=== PATIENT | male | born 1960 | race Caucasian/White ===

== ENCOUNTER 2018-08-18 18:06 | Inpatient (IN) ==
--- NOTE | 2018-08-18 18:17 | Emergency Department Note ---
Disposition Clinical Impression: Agitation Disposition: Admitted As Inpatient Condition: Fair Referrals: NONE,PCP [Primary Care Provider] - Forms: ED Satisfaction Letter Time of Disposition: 21:40 General Adult HPI - General Stated complaint: off meds Time Seen by Provider: 08/18/18 18:09 Nursing Notes Reviewed: Yes Vital Signs Reviewed: Yes - History of Present Illness HPI Narrative: 57yo male presents from home via EMS for evaluation of agitation. Yesterday and today, patient was shouting, knocking over things, and punching the wall. Staff at his home state he is, "off his meds." Staff was unable to provide EMS with an accurate med list with the patient. Patient notes he needs oxygen and has chest pain; he us unable to further quantify his chest pain. ROS: Pos: as above Neg: fever, chills, dyspnea, diaphoresis, nausea, vomiting, diarrhea, constipation - Related Data Home Medications Medication Instructions Recorded Confirmed Atorvastatin [Lipitor] 10 mg PO HS 07/28/16 10/25/16 Cholecalciferol (D-3) [Vitamin D] 2,000 unit PO BID 07/28/16 10/25/16 CloZAPine [Fazaclo] 100 mg PO BID 07/28/16 10/25/16 Glimepiride [Amaryl] 2 mg PO QAM 07/28/16 10/25/16 Insulin Glargine,Hum.rec.anlog 25 unit SQ HS 07/28/16 07/31/16 [Lantus Solostar] Metformin HCl [Glucophage] 1,000 mg PO BID 07/28/16 10/25/16 Sennosides/Docusate Sodium [Senna 2 each PO BID 07/28/16 10/25/16 Plus] SitaGLIPtin [Januvia] 100 mg PO DAILY 07/28/16 10/25/16 clonazePAM [Klonopin] 0.5 mg PO BID 07/28/16 10/25/16 raNITIdine HCl [Zantac] 150 mg PO BID 07/28/16 10/25/16 Travoprost [Travatan Z] 1 drop BOTH EYES HS 07/31/16 10/25/16 Brinzolamide 1% [Azopt] 1 drop BOTH EYES BID 10/25/16 10/25/16 Lisinopril/Hydrochlorothiazide 1 each PO DAILY 10/25/16 10/25/16 [Zestoretic 20-12.5 mg Tablet] RisperiDONE [Risperdal] 0.5 mg PO HS 10/25/16 10/25/16 risperiDONE [Risperdal] 4 mg PO HS 10/25/16 10/25/16 Previous Rx's Medication Instructions Recorded Acetaminophen [Tylenol] 650 mg PO Q6HR PRN #0 tablet 08/03/16 Divalproex (24 HR) [Depakote ER 1,000 mg PO HS tab.er.24h 08/03/16 (24 HR)] Escitalopram [Lexapro] 20 mg PO DAILY tablet 08/03/16 Glucagon, Human Recombinant 1 mg IM ONCE PRN #0 vial 08/03/16 [Glucagen] Insulin DETEMIR [Levemir] 20 unit SQ HS [id number] 08/03/16 Insulin LISPRO [HumaLOG] 0 units SQ TIDAC vial 08/03/16 Allergies Allergy/AdvReac Type Severity Reaction Status Date / Time No Known Allergies Allergy Verified 08/13/18 13:03 All systems ED: reviewed and negative except as stated. Review of Systems: As Per HPI Past Medical History - Past Medical History Medical history: Reports: diabetes, hypertension Surgical history: Reports: cholecystectomy, other Psychiatric history: Reports: bipolar, schizophrenia - Social History Smoking Status: Former smoker Smokeless Tobacco Status: No Alcohol use: Reports: none Drug use: Reports: none Physical Exam Vital Signs Reviewed General: Patient is alert, oriented, and in no acute distress. Head: atraumatic, normocephalic Eye: normal appearance, PERRL, EOMI, no scleral icterus, no conjunctival injection ENT: mucous membranes moist, normal external ear exam Neck: normal inspection, trachea midline, full ROM Chest: normal inspection, symmetric chest rise. Nontender to palpation. Respiratory: Good respiratory effort. Bilateral breath sounds are clear without wheezing, crackles, or rhonchi. Cardiovascular: Regular rate and rhythm. No clicks, rubs, gallops, or murmors. Normal heart sounds. Abdomen: Bowel sounds present normoactive x-4 quadrants. Abdomen is soft, nondistended, and nontender. No guarding or rebound. Musculoskeletal: Spontaneously moving all extremities. Skin: warm, dry, intact. Neuro: Alert and oriented x4. Sensation light touch intact. Psych: Patient's affect is appropriate for situation. Course Course Narrative: Chart check shows patient was discharged in this emergency department yesterday which she complaint of combativeness in the context of his schizophrenia. He was evaluated by [facility] yesterday and cleared to go home. He was reportedly fine emergency department until told he would be going home at which point he became aggressive and threatening and was given 10 mg IM Geodon; the snf injury to accept the patient in the condition. EKG dated 08/18/2018 at 18:17 interpreted as sinus rhythm with rate of 93. ID 151. QTC 392. Normal axis. Nonspecific ST-T changes. Isolated T-wave inversion in lead 3. Compared to previous EKG dated 08/01/2016 showing no acute ischemic changes or comparison. Patient is medically cleared at this time. She has been accepted to [facility]. Vital Signs Temperature 98.5 F 08/18/18 18:27 Pulse Rate 93 08/18/18 18:27 Respiratory Rate 18 08/18/18 18:27 Blood Pressure 153/81 08/18/18 18:27 O2 Sat by Pulse Oximetry 100 08/18/18 18:27 Temperature 98.5 F 08/18/18 18:34 Pulse Rate 92 08/18/18 21:05 Respiratory Rate 14 08/18/18 21:05 Blood Pressure 147/84 08/18/18 21:05 O2 Sat by Pulse Oximetry 100 08/18/18 21:05 Oxygen Delivery Oxygen Delivery Nasal Cannula Medical Decision Making - Lab Data Result diagrams: 08/18/18 18:45 08/18/18 18:45 Lab Results 08/18/18 08/18/18 08/18/18 Range/Units 18:38 18:38 18:45 WBC (4.3-11.1) K/mcL RBC (4.19-5.50) M/mcL Hgb (12.9-16.9) g/dL Hct (37.5-50.1) % MCV (83.0-100.0) fL MCH (28.0-33.3) pg MCHC (31.6-35.5) g/dL RDW (11.5-14.5) % Plt Count (140-400) K/mcL MPV (9.4-12.4) fL Immature Gran % (0-4) % Seg Neutrophils % % Lymphocytes % % Monocytes % % Eosinophils % % Basophils % % Neutrophils # (1.6-8.9) K/mcL Lymphocytes # (0.6-4.6) K/mcL Monocytes # (0.0-1.3) K/mcL Eosinophils # (0.0-0.6) K/mcL Basophils # (0.0-0.2) K/mcL Sodium (136-145) mEq/L Potassium (3.5-5.1) mEq/L Chloride (98-107) mEq/L Carbon Dioxide (23-29) mEq/L BUN (6-20) mg/dL Creatinine (0.70-1.30) mg/dL Est GFR ( Amer) (> 60) Est GFR (Non-Af Amer) (> 60) BUN/Creatinine Ratio (6-26) Glucose (70-105) mg/dL Calculated Osmolality (280-300) Calcium (8.6-10.3) mg/dL Troponin I (< 0.04) ng/mL Urine Color Yellow (Yellow) Urine Clarity Clear (Clear) Urine pH 6.0 (5.0-8.0) pH Units Ur Specific [place] 1.022 (1.010-1.025) Urine Protein 30 H (Neg-Trace) mg/dL Urine Glucose (UA) 500 H (Normal) mg/dL Urine Ketones 15 H (Negative) mg/dL Urine Blood Trace H (Negative) Urine Nitrite Negative (Negative) Urine Bilirubin Negative (Negative) Urine Urobilinogen Normal (Normal) mg/dL Ur Leukocyte Esterase Negative (Negative) Urine Microscopic RBC 5-15 H (0-3) per hpf Urine Microscopic WBC 0-3 (0-3) per hpf Ur Squamous Epith Cells Few (None-Few) per lpf Urine Bacteria None Seen (None-Few) per hpf Hyaline Casts None Seen (None-Few) per lpf Salicylates < 2.5 L (15.0-30.0) mg/dL Urine Opiates Screen Negative (Ozpdwq=639) ng/mL Acetaminophen < 10 L (10-20) mcg/mL Ur Barbiturates Screen Negative (Arphtc=903) ng/mL Valproic Acid 93 (50-100) mcg/mL Ur Phencyclidine Scrn Negative (Cutoff=25) ng/mL Ur Amphetamines Screen Negative (Mqfclc=2396) ng/mL U Benzodiazepines Scrn Negative (Hxbjtf=726) ng/mL Urine Cocaine Screen Negative (Cutoff= 300) ng/mL U Marijuana (THC) Screen Negative (Cutoff = 50) ng/mL Ur Drug Screen Interp See Below Ethyl Alcohol < 10 (Less than 10) mg/dL 08/18/18 08/18/18 Range/Units 18:45 18:45 WBC 9.9 (4.3-11.1) K/mcL RBC 3.86 L (4.19-5.50) M/mcL Hgb 12.1 L (12.9-16.9) g/dL Hct 35.9 L (37.5-50.1) % MCV 93.0 (83.0-100.0) fL MCH 31.3 (28.0-33.3) pg MCHC 33.7 (31.6-35.5) g/dL RDW 13.0 (11.5-14.5) % Plt Count 127 L (140-400) K/mcL MPV 10.3 (9.4-12.4) fL Immature Gran % 0.9 (0-4) % Seg Neutrophils % 74.7 % Lymphocytes % 14.2 % Monocytes % 9.5 % Eosinophils % 0.4 % Basophils % 0.3 % Neutrophils # 7.4 (1.6-8.9) K/mcL Lymphocytes # 1.4 (0.6-4.6) K/mcL Monocytes # 0.9 (0.0-1.3) K/mcL Eosinophils # 0.0 (0.0-0.6) K/mcL Basophils # 0.0 (0.0-0.2) K/mcL Sodium 130 L (136-145) mEq/L Potassium 4.5 (3.5-5.1) mEq/L Chloride 96 L (98-107) mEq/L Carbon Dioxide 25 (23-29) mEq/L BUN 21 H (6-20) mg/dL Creatinine 1.05 (0.70-1.30) mg/dL Est GFR ( Amer) > 60 (> 60) Est GFR (Non-Af Amer) > 60 (> 60) BUN/Creatinine Ratio 20 (6-26) Glucose 263 H (70-105) mg/dL Calculated Osmolality 282 (280-300) Calcium 9.3 (8.6-10.3) mg/dL Troponin I < 0.03 (< 0.04) ng/mL Urine Color (Yellow) Urine Clarity (Clear) Urine pH (5.0-8.0) pH Units Ur Specific [place] (1.010-1.025) Urine Protein (Neg-Trace) mg/dL Urine Glucose (UA) (Normal) mg/dL Urine Ketones (Negative) mg/dL Urine Blood (Negative) Urine Nitrite (Negative) Urine Bilirubin (Negative) Urine Urobilinogen (Normal) mg/dL Ur Leukocyte Esterase (Negative) Urine Microscopic RBC (0-3) per hpf Urine Microscopic WBC (0-3) per hpf Ur Squamous Epith Cells (None-Few) per lpf Urine Bacteria (None-Few) per hpf Hyaline Casts (None-Few) per lpf Salicylates (15.0-30.0) mg/dL Urine Opiates Screen (Nahiul=288) ng/mL Acetaminophen (10-20) mcg/mL Ur Barbiturates Screen (Asdooz=099) ng/mL Valproic Acid (50-100) mcg/mL Ur Phencyclidine Scrn (Cutoff=25) ng/mL Ur Amphetamines Screen (Vkyzhz=5029) ng/mL U Benzodiazepines Scrn (Wltzmx=434) ng/mL Urine Cocaine Screen (Cutoff= 300) ng/mL U Marijuana (THC) Screen (Cutoff = 50) ng/mL Ur Drug Screen Interp Ethyl Alcohol (Less than 10) mg/dL Attestation Statement - Attestation Attestation: I, Anthony Moeller DO, examined this patient [id number] and my medical decision-making was reviewed with Dr. Severino Vick, Resident Physician. I agree with the documented findings, disposition and treatment plan as described except to the extent set forth below. Please see my progress notes for details.
[2018-08-18 19:04] LABS: Basophils % 0.3 %; Eosinophils % 0.4 %; Hematocrit 35.9 % (37.5-50.1); Hemoglobin 12.1 g/dL (12.9-16.9); Immature Granulocytes % 0.9 % (0-4); Lymphocytes # 1.4 K/mcL (0.6-4.6); Lymphocytes % 14.2 %; Mean Corpuscular HGB Conc 33.7 g/dL (31.6-35.5); Mean Corpuscular Hemoglobin 31.3 pg (28.0-33.3); Mean Platelet Volume 10.3 fL (9.4-12.4); Monocytes # 0.9 K/mcL (0.0-1.3); Monocytes % 9.5 %; Neutrophils # 7.4 K/mcL (1.6-8.9); Platelet Count 127 K/mcL (140-400); Red Blood Count 3.86 M/mcL (4.19-5.50); Segmented Neutrophils % 74.7 %
[2018-08-18 19:08] LABS: Bilirubin,Urine Negative (Negative); Blood,Urine Trace (Negative); Clarity,Urine Clear (Clear); Color,Urine Yellow (Yellow); Glucose,Urine (UA) 500 mg/dL (Normal); Ketones,Urine 15 mg/dL (Negative); Leukocyte Esterase,Urine Negative (Negative); Nitrite,Urine Negative (Negative); Protein,Urine 30 mg/dL (Neg-Trace); Specific Gravity,Urine 1.022 (1.010-1.025); Urobilinogen,Urine Normal (Normal)
[2018-08-18 19:10] LABS: Bacteria,Urine None Seen per hpf (None-Few); Hyaline Casts,Urine None Seen per lpf (None-Few); Squamous Epithelial Cell,Urine Few per lpf (None-Few); WBC,Urine 0-3 per hpf (0-3)
[2018-08-18 19:15] LABS: Amphetamine Screen,Urine Negative ng/mL (Cutoff=1000); Barbiturate Screen,Urine Negative ng/mL (Cutoff=200); Benzodiazepines Screen,Urine Negative ng/mL (Cutoff=200); Cannabinoid Screen,Urine Negative ng/mL (Cutoff = 50); Cocaine Screen,Urine Negative ng/mL (Cutoff= 300); Opiate Screen,Urine Negative ng/mL (Cutoff=300); Phencyclidine Screen,Urine Negative ng/mL (Cutoff=25)
[2018-08-18 19:23] LABS: Acetaminophen < 10 mcg/mL (10-20); Ethanol < 10 mg/dL (Less than 10); Salicylate < 2.5 mg/dL (15.0-30.0); Valproate 93 mcg/mL (50-100)
[2018-08-18 19:25] LABS: BUN/Creatinine Ratio 20 (6-26); Blood Urea Nitrogen 21 mg/dL (6-20); Calcium 9.3 mg/dL (8.6-10.3); Carbon Dioxide 25 mEq/L (23-29); Chloride 96 mEq/L (98-107); Glucose 263 mg/dL (70-105); Osmolality,Calculated 282 (280-300); Potassium 4.5 mEq/L (3.5-5.1); Sodium 130 mEq/L (136-145); Troponin I < 0.03 ng/mL (< 0.04); eGFR For Non-African Americans > 60 (> 60)
--- NOTE | 2018-08-18 20:18 | Emergency Department Note ---
Disposition Clinical Impression: Agitation Disposition: Admitted As Inpatient Condition: Fair Forms: ED Satisfaction Letter Time of Disposition: 21:13 General Adult HPI - General Chief complaint: ED Chest Pain Stated complaint: off meds Time Seen by Provider: 08/18/18 18:09 Source: patient Limitations: no limitations - History of Present Illness Pain Scale: 8 - Related Data Home Medications Medication Instructions Recorded Confirmed Atorvastatin [Lipitor] 10 mg PO HS 07/28/16 10/25/16 Cholecalciferol (D-3) [Vitamin D] 2,000 unit PO BID 07/28/16 10/25/16 CloZAPine [Fazaclo] 100 mg PO BID 07/28/16 10/25/16 Glimepiride [Amaryl] 2 mg PO QAM 07/28/16 10/25/16 Insulin Glargine,Hum.rec.anlog 25 unit SQ HS 07/28/16 07/31/16 [Lantus Solostar] Metformin HCl [Glucophage] 1,000 mg PO BID 07/28/16 10/25/16 Sennosides/Docusate Sodium [Senna 2 each PO BID 07/28/16 10/25/16 Plus] SitaGLIPtin [Januvia] 100 mg PO DAILY 07/28/16 10/25/16 clonazePAM [Klonopin] 0.5 mg PO BID 07/28/16 10/25/16 raNITIdine HCl [Zantac] 150 mg PO BID 07/28/16 10/25/16 Travoprost [Travatan Z] 1 drop BOTH EYES HS 07/31/16 10/25/16 Brinzolamide 1% [Azopt] 1 drop BOTH EYES BID 10/25/16 10/25/16 Lisinopril/Hydrochlorothiazide 1 each PO DAILY 10/25/16 10/25/16 [Zestoretic 20-12.5 mg Tablet] RisperiDONE [Risperdal] 0.5 mg PO HS 10/25/16 10/25/16 risperiDONE [Risperdal] 4 mg PO HS 10/25/16 10/25/16 Previous Rx's Medication Instructions Recorded Acetaminophen [Tylenol] 650 mg PO Q6HR PRN #0 tablet 08/03/16 Divalproex (24 HR) [Depakote ER 1,000 mg PO HS tab.er.24h 08/03/16 (24 HR)] Escitalopram [Lexapro] 20 mg PO DAILY tablet 08/03/16 Glucagon, Human Recombinant 1 mg IM ONCE PRN #0 vial 08/03/16 [Glucagen] Insulin DETEMIR [Levemir] 20 unit SQ HS [id number] 08/03/16 Insulin LISPRO [HumaLOG] 0 units SQ TIDAC vial 08/03/16 Allergies Allergy/AdvReac Type Severity Reaction Status Date / Time No Known Allergies Allergy Verified 08/13/18 13:03 Past Medical History - Past Medical History Medical history: Reports: diabetes, hypertension Surgical history: Reports: cholecystectomy, other Psychiatric history: Reports: bipolar, schizophrenia - Social History Smoking Status: Former smoker Smokeless Tobacco Status: No Alcohol use: Reports: none Drug use: Reports: none Physical Exam - General Limitations: no limitations General appearance: alert, appears intoxicated Course Vital Signs Temperature 98.5 F 08/18/18 18:27 Pulse Rate 93 08/18/18 18:27 Respiratory Rate 18 08/18/18 18:27 Blood Pressure 153/81 08/18/18 18:27 O2 Sat by Pulse Oximetry 100 08/18/18 18:27 Temperature 98.5 F 08/18/18 18:34 Pulse Rate 92 08/18/18 21:05 Respiratory Rate 14 08/18/18 21:05 Blood Pressure 147/84 08/18/18 21:05 O2 Sat by Pulse Oximetry 100 08/18/18 21:05 Oxygen Delivery Oxygen Delivery Nasal Cannula Medical Decision Making - Lab Data Result diagrams: 08/18/18 18:45 08/18/18 18:45 Lab Results 08/18/18 08/18/18 08/18/18 Range/Units 18:38 18:38 18:45 WBC (4.3-11.1) K/mcL RBC (4.19-5.50) M/mcL Hgb (12.9-16.9) g/dL Hct (37.5-50.1) % MCV (83.0-100.0) fL MCH (28.0-33.3) pg MCHC (31.6-35.5) g/dL RDW (11.5-14.5) % Plt Count (140-400) K/mcL MPV (9.4-12.4) fL Immature Gran % (0-4) % Seg Neutrophils % % Lymphocytes % % Monocytes % % Eosinophils % % Basophils % % Neutrophils # (1.6-8.9) K/mcL Lymphocytes # (0.6-4.6) K/mcL Monocytes # (0.0-1.3) K/mcL Eosinophils # (0.0-0.6) K/mcL Basophils # (0.0-0.2) K/mcL Sodium (136-145) mEq/L Potassium (3.5-5.1) mEq/L Chloride (98-107) mEq/L Carbon Dioxide (23-29) mEq/L BUN (6-20) mg/dL Creatinine (0.70-1.30) mg/dL Est GFR ( Amer) (> 60) Est GFR (Non-Af Amer) (> 60) BUN/Creatinine Ratio (6-26) Glucose (70-105) mg/dL Calculated Osmolality (280-300) Calcium (8.6-10.3) mg/dL Troponin I (< 0.04) ng/mL Urine Color Yellow (Yellow) Urine Clarity Clear (Clear) Urine pH 6.0 (5.0-8.0) pH Units Ur Specific [place] 1.022 (1.010-1.025) Urine Protein 30 H (Neg-Trace) mg/dL Urine Glucose (UA) 500 H (Normal) mg/dL Urine Ketones 15 H (Negative) mg/dL Urine Blood Trace H (Negative) Urine Nitrite Negative (Negative) Urine Bilirubin Negative (Negative) Urine Urobilinogen Normal (Normal) mg/dL Ur Leukocyte Esterase Negative (Negative) Urine Microscopic RBC 5-15 H (0-3) per hpf Urine Microscopic WBC 0-3 (0-3) per hpf Ur Squamous Epith Cells Few (None-Few) per lpf Urine Bacteria None Seen (None-Few) per hpf Hyaline Casts None Seen (None-Few) per lpf Salicylates < 2.5 L (15.0-30.0) mg/dL Urine Opiates Screen Negative (Tqpoee=225) ng/mL Acetaminophen < 10 L (10-20) mcg/mL Ur Barbiturates Screen Negative (Ewynfg=842) ng/mL Valproic Acid 93 (50-100) mcg/mL Ur Phencyclidine Scrn Negative (Cutoff=25) ng/mL Ur Amphetamines Screen Negative (Qhacfo=0464) ng/mL U Benzodiazepines Scrn Negative (Pogiwv=209) ng/mL Urine Cocaine Screen Negative (Cutoff= 300) ng/mL U Marijuana (THC) Screen Negative (Cutoff = 50) ng/mL Ur Drug Screen Interp See Below Ethyl Alcohol < 10 (Less than 10) mg/dL 08/18/18 08/18/18 Range/Units 18:45 18:45 WBC 9.9 (4.3-11.1) K/mcL RBC 3.86 L (4.19-5.50) M/mcL Hgb 12.1 L (12.9-16.9) g/dL Hct 35.9 L (37.5-50.1) % MCV 93.0 (83.0-100.0) fL MCH 31.3 (28.0-33.3) pg MCHC 33.7 (31.6-35.5) g/dL RDW 13.0 (11.5-14.5) % Plt Count 127 L (140-400) K/mcL MPV 10.3 (9.4-12.4) fL Immature Gran % 0.9 (0-4) % Seg Neutrophils % 74.7 % Lymphocytes % 14.2 % Monocytes % 9.5 % Eosinophils % 0.4 % Basophils % 0.3 % Neutrophils # 7.4 (1.6-8.9) K/mcL Lymphocytes # 1.4 (0.6-4.6) K/mcL Monocytes # 0.9 (0.0-1.3) K/mcL Eosinophils # 0.0 (0.0-0.6) K/mcL Basophils # 0.0 (0.0-0.2) K/mcL Sodium 130 L (136-145) mEq/L Potassium 4.5 (3.5-5.1) mEq/L Chloride 96 L (98-107) mEq/L Carbon Dioxide 25 (23-29) mEq/L BUN 21 H (6-20) mg/dL Creatinine 1.05 (0.70-1.30) mg/dL Est GFR ( Amer) > 60 (> 60) Est GFR (Non-Af Amer) > 60 (> 60) BUN/Creatinine Ratio 20 (6-26) Glucose 263 H (70-105) mg/dL Calculated Osmolality 282 (280-300) Calcium 9.3 (8.6-10.3) mg/dL Troponin I < 0.03 (< 0.04) ng/mL Urine Color (Yellow) Urine Clarity (Clear) Urine pH (5.0-8.0) pH Units Ur Specific [place] (1.010-1.025) Urine Protein (Neg-Trace) mg/dL Urine Glucose (UA) (Normal) mg/dL Urine Ketones (Negative) mg/dL Urine Blood (Negative) Urine Nitrite (Negative) Urine Bilirubin (Negative) Urine Urobilinogen (Normal) mg/dL Ur Leukocyte Esterase (Negative) Urine Microscopic RBC (0-3) per hpf Urine Microscopic WBC (0-3) per hpf Ur Squamous Epith Cells (None-Few) per lpf Urine Bacteria (None-Few) per hpf Hyaline Casts (None-Few) per lpf Salicylates (15.0-30.0) mg/dL Urine Opiates Screen (Allhdi=399) ng/mL Acetaminophen (10-20) mcg/mL Ur Barbiturates Screen (Qrjhdc=212) ng/mL Valproic Acid (50-100) mcg/mL Ur Phencyclidine Scrn (Cutoff=25) ng/mL Ur Amphetamines Screen (Qtlqwh=7220) ng/mL U Benzodiazepines Scrn (Xcajui=336) ng/mL Urine Cocaine Screen (Cutoff= 300) ng/mL U Marijuana (THC) Screen (Cutoff = 50) ng/mL Ur Drug Screen Interp Ethyl Alcohol (Less than 10) mg/dL Attestation Statement - Attestation Attestation: I, Anthony Moeller DO, examined this patient [id number] and my medical decision-making was reviewed with Dr. Severino Vick, Resident Physician. I agree with the documented findings, disposition and treatment plan as described except to the extent set forth below. Please see my progress notes for details. 57-year-old male presents emergency room for evaluation of noncompliance with his medication agitation his shelter. Patient was seen here twice in the last week for similar issues. He is evaluated by the psychiatric team discharged home. Patient has not been taking his medications that facility and they are concerned because he was arguing staff members.EMS transport vision without any complication. Vital signs are stable transport. Patient is in no distress. Is describing chest discomfort. Patient typically describes chest discomfort. Otherwise denies shortness of breath headache vision changes nausea vomiting diarrhea. Denies any fevers or chills. Denies any other ingestions. Denies any suicidal ideation or homicidal ideation. Patient is otherwise currently stable. Lungs are clear heart is regular abdomen is soft. Medical evaluation including EKG chest x-ray CBC chemistry troponin screening labs including urine drug screen Tylenol level and aspirin level will be collected along with ethanol. Patient will be evaluated by the psychiatric team secondary to the outburst agitation and disposition will be determined. Patient otherwise clinical stable. See detailed documentation the physical exam , medical intervention, medical decision-making and disposition in the resident physician's note. No care provider the patient's treatment course at this time. 1999 1a contacted. they evaluated. 2100 Patient was accepted by the psychiatric team. Patient will be admitted at this time for continuation of care.
[2018-08-18] MEDS ORDERED: Haloperidol Lactate 5 MG/ML VIAL IM PRN (22:19)
[2018-08-18] MEDS ORDERED: Mag Hydrox/Al Hydrox/Simeth 30 ML UDC PO PRN (22:19)
[2018-08-18] MEDS ORDERED: *HR* LORazepam 1 MG TABLET PO PRN (22:19)
[2018-08-18] MEDS ORDERED: *HR* LORazepam 2 MG/ML VIAL IM PRN (22:19)
--- NOTE | 2018-08-19 11:08 | Psychiatry History & Physical ---
Date of Encounter: 08/19/18 Time of Encounter: 10:24 History of Present Illness Patient Stated Chief Complaint: i do not know Medicare Admission Attestation: For traditional Medicare patients the provided hospital inpatient services are reasonable and necessary and in the case of services not specified as inpatient -only under 42 CFR 419.22 (n), that they are appropriately provided as inpatient services in accordance 42 CFR 412.3. For Critical Access Hospital the patient may reasonably be expected to be discharged or transferred to a hospital within 96 hours after admission to the Critical Access Hospital. Admitted From: Emergency Dept Plans for Post Hospital Care: Transfer Other History of Present Illness: Mr. Hough is a 57 year old male was evaluated today , h/o schizophrenia , had been to ED 3 times last month and this time skilled nursing sent him for agitation and refusing to take medication. He at present has poor eye contact , poor historian and talking to self and internally preoccupied. he agreed he was upset , loud and angry , he is answering only I don"t know , unable to get much from patient at present, unknown for how ling he has refused medication. He was on clozaril but now on risperdal, he has low platelet count, low hg/hct and will review his medication . [place] side effects except hand shaking , he has tremors , medically he has diabetes, overweight , HTN , HLP ,denies street drugs . A/p Schizophrenia acute exacerbation secondary to non compliance. WIll adjust medications, get labs, and once stable will discharge to skilled nursing. Past Med Surg Social Fam HX - Past Medical History Medical history: diabetes, hyperlipidemia, hypertension - Past Surgical History Surgical History: cholecystectomy, other - Social History Smoking Status: Former smoker Smokeless Tobacco Status: No Alcohol use: none Drug use: none Medications & Allergies Aspirin [Lo-Dose Aspirin EC] 81 mg PO DAILY 08/18/18 [History] Atorvastatin [Lipitor] 40 mg PO HS 08/18/18 [History] Divalproex Sodium [Depakote] 500 mg PO TID 08/18/18 [History] Escitalopram [Lexapro] 20 mg PO DAILY 08/18/18 [History] Glimepiride [Amaryl] 2 mg PO DAILY 08/18/18 [History] Insulin Glargine [Lantus] 25 unit DAILY 08/18/18 [History] Lisinopril [Zestril] 20 mg PO DAILY 08/18/18 [History] Metformin HCl [Glucophage] 1,000 mg PO BID 08/18/18 [History] Metoprolol Succinate [Toprol Xl] 25 mg PO DAILY 08/18/18 [History] Quetiapine Fumarate [Quetiapine Fumarate ER] 50 mg PO HS 08/18/18 [History] Ranitidine HCl [Acid Sap Ppm Consultant] 150 mg PO BID 08/18/18 [History] risperiDONE [RisperDAL] 3 mg PO DAILY 08/18/18 [History] 3 Allergy/AdvReac Type Severity Reaction Status Date / Time No Known Allergies Allergy Verified 08/13/18 13:03 Review of Systems Constitutional: Denies: fever, chills, weakness, weight change Eyes: Denies: eye pain, vision change Ears, Nose, Throat: Denies: ear pain, throat pain, dental pain, hearing loss, congestion Cardiovascular: Denies: chest pain, palpitations, dyspnea on exertion Respiratory: Denies: cough, dyspnea, wheezes Gastrointestinal: Denies: abdominal pain, nausea, vomiting, diarrhea, constipation Genitourinary male: Denies: urgency, dysuria, frequency, genital lesions Musculoskeletal: Denies: joint swelling, joint pain Integumentary: Denies: rash, lesions, pruritus Neurological: Denies: headache, weakness, numbness, memory loss Psychiatric: Reports: abnormal sleep pattern, auditory hallucinations, difficulty concentrating, irritability Endocrine: Denies: fatigue, heat or cold intolerance Hematologic/Lymphatic: Denies: easy bruising, lymphadenopathy Allergic/Immunologic: Denies: urticaria, itchy eyes Exam - HEENT Head exam IM: Present: atraumatic Eye exam IM: Present: EOMI, normal appearance, PERRL ENT exam IM: Present: normal exam - Neurological Neurological exam: Present: CN II-XII intact - Respiratory Respiratory exam IM: Present: accessory muscle use - GI/Abdominal GI/Abdominal exam IM: Present: normal bowel sounds, soft. Absent: tenderness - Extremities Extremities exam IM: Present: full ROM - Skin Skin exam IM: Present: dry, warm - Constitutional Vitals: Temp Pulse Resp BP Pulse Ox 97.2 F L 98 18 151/84 100 08/19/18 09:00 08/19/18 09:00 08/19/18 09:00 08/19/18 09:00 08/18/18 21:05 General appearance: obese - Musculoskeletal Gait: slow Station: other Strength & Tone: normal for patient - Psychiatric Patient Orientation: Yes Person, Yes Time, Yes Place Level of alertness: Alert Behavior: guarded Psychomotor activity: Slowed Eye Contact: No Eye Contact Mood Description: Irritable Affect description: congruent with mood Speech Volume: Soft/Quiet Speech pattern: slowed Language & Vocabulary: consistent with education Thought Process: Thought Blocking Thought Content: Yes Preoccupation, Yes Paranoid delusion Perceptual Disturbances: Yes Reacting to internal stimuli Attention Span Ability: Unable to Sustain Attention Patient Reliability: Not Reliable Historian Judgment: Poor Insight: Minimal Results - Labs Labs: Laboratory Last Values WBC 9.9 K/mcL (4.3-11.1) 08/18/18 18:45 RBC 3.86 M/mcL (4.19-5.50) L 08/18/18 18:45 Hgb 12.1 g/dL (12.9-16.9) L 08/18/18 18:45 Hct 35.9 % (37.5-50.1) L 08/18/18 18:45 MCV 93.0 fL (83.0-100.0) 08/18/18 18:45 MCH 31.3 pg (28.0-33.3) 08/18/18 18:45 MCHC 33.7 g/dL (31.6-35.5) 08/18/18 18:45 RDW 13.0 % (11.5-14.5) 08/18/18 18:45 Plt Count 127 K/mcL (140-400) L 08/18/18 18:45 MPV 10.3 fL (9.4-12.4) 08/18/18 18:45 Immature Gran % 0.9 % (0-4) 08/18/18 18:45 Seg Neutrophils % 74.7 % 08/18/18 18:45 Lymphocytes % 14.2 % 08/18/18 18:45 Monocytes % 9.5 % 08/18/18 18:45 Eosinophils % 0.4 % 08/18/18 18:45 Basophils % 0.3 % 08/18/18 18:45 Neutrophils # 7.4 K/mcL (1.6-8.9) 08/18/18 18:45 Lymphocytes # 1.4 K/mcL (0.6-4.6) 08/18/18 18:45 Monocytes # 0.9 K/mcL (0.0-1.3) 08/18/18 18:45 Eosinophils # 0.0 K/mcL (0.0-0.6) 08/18/18 18:45 Basophils # 0.0 K/mcL (0.0-0.2) 08/18/18 18:45 Sodium 130 mEq/L (136-145) L 08/18/18 18:45 Potassium 4.5 mEq/L (3.5-5.1) 08/18/18 18:45 Chloride 96 mEq/L (98-107) L 08/18/18 18:45 Carbon Dioxide 25 mEq/L (23-29) 08/18/18 18:45 BUN 21 mg/dL (6-20) H 08/18/18 18:45 Creatinine 1.05 mg/dL (0.70-1.30) 08/18/18 18:45 Est GFR ( Amer) > 60 (> 60) 08/18/18 18:45 Est GFR (Non-Af Amer) > 60 (> 60) 08/18/18 18:45 BUN/Creatinine Ratio 20 (6-26) 08/18/18 18:45 Glucose 263 mg/dL (70-105) H 08/18/18 18:45 Calculated Osmolality 282 (280-300) 08/18/18 18:45 Calcium 9.3 mg/dL (8.6-10.3) 08/18/18 18:45 Troponin I < 0.03 ng/mL (< 0.04) 08/18/18 18:45 Urine Color Yellow (Yellow) 08/18/18 18:38 Urine Clarity Clear (Clear) 08/18/18 18:38 Urine pH 6.0 pH Units (5.0-8.0) 08/18/18 18:38 Ur Specific [place] 1.022 (1.010-1.025) 08/18/18 18:38 Urine Protein 30 mg/dL (Neg-Trace) H 08/18/18 18:38 Urine Glucose (UA) 500 mg/dL (Normal) H 08/18/18 18:38 Urine Ketones 15 mg/dL (Negative) H 08/18/18 18:38 Urine Blood Trace (Negative) H 08/18/18 18:38 Urine Nitrite Negative (Negative) 08/18/18 18:38 Urine Bilirubin Negative (Negative) 08/18/18 18:38 Urine Urobilinogen Normal mg/dL (Normal) 08/18/18 18:38 Ur Leukocyte Esterase Negative (Negative) 08/18/18 18:38 Urine Microscopic RBC 5-15 per hpf (0-3) H 08/18/18 18:38 Urine Microscopic WBC 0-3 per hpf (0-3) 08/18/18 18:38 Ur Squamous Epith Cells Few per lpf (None-Few) 08/18/18 18:38 Urine Bacteria None Seen per hpf (None-Few) 08/18/18 18:38 Hyaline Casts None Seen per lpf (None-Few) 08/18/18 18:38 Salicylates < 2.5 mg/dL (15.0-30.0) L 08/18/18 18:45 Urine Opiates Screen Negative ng/mL (Puudoj=270) 08/18/18 18:38 Acetaminophen < 10 mcg/mL (10-20) L 08/18/18 18:45 Ur Barbiturates Screen Negative ng/mL (Lltfhk=892) 08/18/18 18:38 Valproic Acid 93 mcg/mL (50-100) 08/18/18 18:45 Ur Phencyclidine Scrn Negative ng/mL (Cutoff=25) 08/18/18 18:38 Ur Amphetamines Screen Negative ng/mL (Pzmxkp=9466) 08/18/18 18:38 U Benzodiazepines Scrn Negative ng/mL (Tvrzwc=039) 08/18/18 18:38 Urine Cocaine Screen Negative ng/mL (Cutoff= 300) 18 18:38 U Marijuana (THC) Screen Negative ng/mL (Cutoff = 50) 08/18/18 18:38 Ur Drug Screen Interp See Below 08/18/18 18:38 Ethyl Alcohol < 10 mg/dL (Less than 10) 08/18/18 18:45 Assessment and Plan (1) Agitation Current visit: Yes Status: Acute Plan: Admit inpatient for safety and stabilization, Close observation, Suicide Precautions per unit protocol, Encourage participation in unit milieu, Group Therapy, Monitor sleep, Monitor appetite, Family/Supportive other meeting Risks, benefits, side effects, alternatives discussed w/pt: Yes Patient agreeable to treatment: Yes Plans for Post Hospital Care: Transfer Other (2) Schizophrenia Current visit: No Status: Acute Plan: Admit inpatient for safety and stabilization, Close observation, Suicide Precautions per unit protocol, Encourage participation in unit milieu, Group Therapy, Monitor sleep, Monitor appetite, Secure weapons, Family/Supportive other meeting Risks, benefits, side effects, alternatives discussed w/pt: Yes Patient agreeable to treatment: Yes Plans for Post Hospital Care: Transfer Other Qualifiers: Schizophrenia type: unspecified Qualified Code(s): F20.9 - Schizophrenia, unspecified
[2018-08-19] MEDS ORDERED: NON-FORMULARY MEDICATION 1 EACH EACH (Insulin Glargine [Lantus] 25 UNIT) SQ SCH (11:30)
[2018-08-19] MEDS ORDERED: *HR* Dextrose 50 % in Water (Syg) 50 ML SYRINGE IVP PRN (11:40)
[2018-08-19] MEDS ORDERED: D5% in Water 1,000 ML IVC PRN (11:40)
[2018-08-19] MEDS ORDERED: Dextrose Gel 15 GM/37.5 ML TUBE PO PRN ×2 (11:40)
[2018-08-19 12:13] LABS: Hematocrit 40.9 % (37.5-50.1); Mean Corpuscular HGB Conc 33.7 g/dL (31.6-35.5); Mean Corpuscular Hemoglobin 31.1 pg (28.0-33.3); Mean Corpuscular Volume 92.1 fL (83.0-100.0); Mean Platelet Volume 10.1 fL (9.4-12.4); Platelet Count 137 K/mcL (140-400); Red Blood Count 4.44 M/mcL (4.19-5.50); Red Cell Distribution Width 12.9 % (11.5-14.5)
[2018-08-19] MEDS: Lisinopril 20 MG TABLET PO SCH (12:13)
[2018-08-19] MEDS: *HR* Metformin 500 MG TABLET PO SCH ×2 (12:13→17:11)
[2018-08-19] MEDS: Aspirin Enteric Coated 81 MG Tablet PO SCH (12:13)
[2018-08-19 12:14] LABS: Hemoglobin 13.8 g/dL (12.9-16.9)
[2018-08-19] MEDS: RisperiDAL 3 MG TABLET PO SCH (12:15)
[2018-08-19] MEDS: Metoprolol XL (24 HR) Succ 25 MG TAB.ER.24H PO SCH (12:39)
[2018-08-19] MEDS: Insulin DETEMIR 100 UNIT/ML X5UNITS SQ SCH (12:39)
[2018-08-19] MEDS: *HR* Glimepiride 2 MG TABLET PO SCH (12:39)
[2018-08-19] MEDS: Famotidine 20 MG TABLET PO SCH (17:11)
[2018-08-20] MEDS: Aspirin Enteric Coated 81 MG Tablet PO SCH (09:02)
[2018-08-20] MEDS: Metoprolol XL (24 HR) Succ 25 MG TAB.ER.24H PO SCH (09:02)
[2018-08-20] MEDS: RisperiDAL 3 MG TABLET PO SCH (09:02)
[2018-08-20] MEDS: *HR* Glimepiride 2 MG TABLET PO SCH (09:02)
[2018-08-20] MEDS: Insulin DETEMIR 100 UNIT/ML X5UNITS SQ SCH (09:03)
[2018-08-20] MEDS: *HR* Metformin 500 MG TABLET PO SCH ×2 (09:03→16:44)
[2018-08-20] MEDS: Famotidine 20 MG TABLET PO SCH ×2 (09:03→16:44)
[2018-08-20] MEDS: Lisinopril 20 MG TABLET PO SCH (09:03)
--- NOTE | 2018-08-20 12:22 | Psychiatry Progress Note ---
Date of Encounter: 08/20/18 Time of Encounter: 12:00 Subjective Interval history: Patient seen today ,case d/w treatment team. remains psychotic, paranoid and internally preoccupied. He is isolative and guarded. Has guardian who wants him back on clozaril as he did best , it was probably dc because of his labs and cbc. at present his depakote was on hold as it can have side effects like thromocytopaenia, cbc was done today , better than oon admision. will closely monitor him and then will start clozaril . at present remains psychotic and needs verbal redirection. poor self hygeine and ADL. Review of Systems Psychiatric: Reports: abnormal sleep pattern, auditory hallucinations, difficulty concentrating, irritability Results - Vital Signs Vital Signs: Temp Pulse Resp BP Pulse Ox 97.4 F L 100 20 139/88 100 08/20/18 09:00 08/20/18 09:00 08/20/18 09:00 08/20/18 09:00 08/18/18 21:05 - Labs Labs: Laboratory Results - last 24 hr 08/19/18 08/20/18 16:44 08:32 POC Glucose 189 H 198 H Assessment and Plan (1) Agitation Current visit: Yes Status: Acute Risks, benefits, side effects, alternatives discussed w/pt: Yes Patient agreeable to treatment: Yes (2) Schizophrenia Current visit: No Status: Acute Risks, benefits, side effects, alternatives discussed w/pt: Yes Patient agreeable to treatment: Yes Qualifiers: Schizophrenia type: unspecified Qualified Code(s): F20.9 - Schizophrenia, unspecified Consult Discharge Plan - Plan Referrals: [facility] [Outside] - 08/26/18 1:00 pm (The above appointment is with Dr. Chatman and Dr. Nye for outpatient psychiatric assessment and medication management services.) Psychiatry Exam - Constitutional Vitals: Temp Pulse Resp BP Pulse Ox 97.4 F L 100 20 139/88 100 08/20/18 09:00 08/20/18 09:00 08/20/18 09:00 08/20/18 09:00 08/18/18 21:05 General appearance: obese - Musculoskeletal Gait: slow Station: other Strength & Tone: normal for patient - Psychiatric Patient Orientation: Yes Person, Yes Time, Yes Place Level of alertness: Alert Behavior: guarded Psychomotor activity: Slowed Eye Contact: Minimal Contact Affect description: blunted Speech Volume: Soft/Quiet Speech pattern: slowed Language & Vocabulary: consistent with education Thought Process: Slowed Thinking Thought Content: Yes Preoccupation, Yes Paranoid delusion Perceptual Disturbances: Yes Reacting to internal stimuli Attention Span Ability: Unable to Sustain Attention Patient Reliability: Questionable Historian Judgment: Poor Insight: Minimal
[2018-08-20] MEDS: traZODone 50 MG TABLET PO PRN (23:37)
[2018-08-21] MEDS: Metoprolol XL (24 HR) Succ 25 MG TAB.ER.24H PO SCH (08:33)
[2018-08-21] MEDS: Aspirin Enteric Coated 81 MG Tablet PO SCH (08:34)
[2018-08-21] MEDS: Lisinopril 20 MG TABLET PO SCH (08:34)
[2018-08-21] MEDS: Famotidine 20 MG TABLET PO SCH ×2 (08:34→16:31)
[2018-08-21] MEDS: *HR* Metformin 500 MG TABLET PO SCH ×2 (08:34→16:31)
[2018-08-21] MEDS: RisperiDAL 3 MG TABLET PO SCH (08:34)
[2018-08-21] MEDS: *HR* Glimepiride 2 MG TABLET PO SCH (08:34)
[2018-08-21] MEDS: Insulin DETEMIR 100 UNIT/ML X5UNITS SQ SCH (08:35)
--- NOTE | 2018-08-21 12:52 | Psychiatry Progress Note ---
Date of Encounter: 08/21/18 Time of Encounter: 12:20 Subjective Interval history: Patient seen today case d/w treatment team. remains same , internally preoccupied , denies suicide ideation and he has had no agitation since here. he is compliant with medication.denies side effects labs done some improvement , will start clozaril once labs better, Review of Systems Psychiatric: Reports: abnormal sleep pattern, auditory hallucinations, difficulty concentrating, irritability Results - Vital Signs Vital Signs: Temp Pulse Resp BP Pulse Ox 97.1 F L 94 18 127/85 100 08/21/18 09:00 08/21/18 09:00 08/21/18 09:00 08/21/18 09:00 08/18/18 21:05 - Labs Labs: Laboratory Results - last 24 hr 08/20/18 08/20/18 08/21/18 16:11 20:45 08:28 POC Glucose 223 H 230 H 174 H Assessment and Plan (1) Agitation Current visit: Yes Status: Acute Risks, benefits, side effects, alternatives discussed w/pt: Yes Patient agreeable to treatment: Yes (2) Schizophrenia Current visit: No Status: Acute Risks, benefits, side effects, alternatives discussed w/pt: Yes Patient agreeable to treatment: Yes Qualifiers: Schizophrenia type: unspecified Qualified Code(s): F20.9 - Schizophrenia, unspecified Consult Discharge Plan - Plan Referrals: [facility] [Outside] - 08/26/18 1:00 pm (The above appointment is with Dr. Chatman and Dr. Nye for outpatient psychiatric assessment and medication management services.) Psychiatry Exam - Constitutional Vitals: Temp Pulse Resp BP Pulse Ox 97.1 F L 94 18 127/85 100 08/21/18 09:00 08/21/18 09:00 08/21/18 09:00 08/21/18 09:00 08/18/18 21:05 General appearance: obese - Musculoskeletal Gait: slow Station: other Strength & Tone: normal for patient - Psychiatric Patient Orientation: Yes Person, Yes Time, Yes Place Level of alertness: Alert Behavior: guarded, withdrawn Psychomotor activity: Slowed Eye Contact: Minimal Contact Mood Description: Euthymic/stable Affect description: blunted Speech Volume: Normal Speech pattern: slowed Language & Vocabulary: consistent with education Thought Process: Slowed Thinking Thought Content: Yes Preoccupation, Yes Paranoid delusion Perceptual Disturbances: Yes Reacting to internal stimuli Attention Span Ability: Unable to Sustain Attention Memory Description: Grossly Intact Intelligence Estimate: Below Average Judgment: Limited Insight: Minimal
[2018-08-21] MEDS: traZODone 50 MG TABLET PO PRN (20:41)
[2018-08-21] MEDS: hydrOXYzine pamoate 25 MG CAPSULE PO PRN (20:41)
[2018-08-22] MEDS: *HR* Glimepiride 2 MG TABLET PO SCH (08:22)
[2018-08-22] MEDS: *HR* Metformin 500 MG TABLET PO SCH ×2 (08:23→17:22)
[2018-08-22] MEDS: Lisinopril 20 MG TABLET PO SCH (08:23)
[2018-08-22] MEDS: Famotidine 20 MG TABLET PO SCH ×2 (08:23→17:21)
[2018-08-22] MEDS: Metoprolol XL (24 HR) Succ 25 MG TAB.ER.24H PO SCH (08:24)
[2018-08-22] MEDS: Aspirin Enteric Coated 81 MG Tablet PO SCH (08:24)
[2018-08-22] MEDS: RisperiDAL 3 MG TABLET PO SCH (08:24)
--- NOTE | 2018-08-22 09:29 | Electrocardiograph Report ---
[place] [id number] Test Date: 2018-08-18 Pat Name: Ajay Hough Department: EXAM17 Room: 1A43 Gender: M Senior Product Development Manager: : 1960 Requested By: Severino Vick Order Number: [id number] Reading MD: Maria Alejandra Martinez Measurements Intervals [place] Rate: 93 P: 73 RI: 151 QRS: 60 QRSD: 80 T: 16 QT: 315 QTc: 392 Interpretive Statements Sinus rhythm Low voltage, precordial leads Electronically Signed On 08-22-2018 9:27:48 EDT by Maria Alejandra Martinez
[2018-08-22] MEDS: Insulin DETEMIR 100 UNIT/ML X5UNITS SQ SCH (09:55)
--- NOTE | 2018-08-22 13:53 | Psychiatry Progress Note ---
Date of Encounter: 08/22/18 Time of Encounter: 13:10 Subjective Interval history: Patient seen today , case d/w treatment team. He remains isolative , paranoid, and internally preoccupied. CBC with differential has been requested and will start tapering risperdal and start clozaril. diet changed to diabetic diet as his sugar is high. close monitoring at present for psychosis. Review of Systems Psychiatric: Reports: abnormal sleep pattern, auditory hallucinations, difficulty concentrating, irritability Results - Vital Signs Vital Signs: Temp Pulse Resp BP Pulse Ox 97.6 F 99 20 141/88 100 08/22/18 09:00 08/22/18 09:00 08/22/18 09:00 08/22/18 09:00 08/18/18 21:05 - Labs Labs: Laboratory Results - last 24 hr 08/21/18 08/21/18 08/22/18 16:29 21:12 08:17 POC Glucose 220 H 192 H 163 H 08/22/18 11:41 POC Glucose 249 H Assessment and Plan (1) Agitation Current visit: Yes Status: Acute Risks, benefits, side effects, alternatives discussed w/pt: Yes Patient agreeable to treatment: Yes (2) Schizophrenia Current visit: No Status: Acute Risks, benefits, side effects, alternatives discussed w/pt: Yes Patient agreeable to treatment: Yes Qualifiers: Schizophrenia type: unspecified Qualified Code(s): F20.9 - Schizophrenia, unspecified Consult Discharge Plan - Plan Referrals: [facility] [Outside] - 08/26/18 1:00 pm (The above appointment is with Dr. Chatman and Dr. Nye for outpatient psychiatric assessment and medication management services.) Psychiatry Exam - Constitutional Vitals: Temp Pulse Resp BP Pulse Ox 97.6 F 99 20 141/88 100 08/22/18 09:00 08/22/18 09:00 08/22/18 09:00 08/22/18 09:00 08/18/18 21:05 General appearance: average - Musculoskeletal Gait: slow Station: other Strength & Tone: normal for patient - Psychiatric Patient Orientation: Yes Person, Yes Time, Yes Place Level of alertness: Alert Behavior: guarded Psychomotor activity: Slowed Eye Contact: Minimal Contact Mood Description: Euthymic/stable Affect description: blunted Speech Volume: Normal Speech pattern: slowed Language & Vocabulary: limited Thought Process: [place] Thought Content: Yes Preoccupation Perceptual Disturbances: Yes Reacting to internal stimuli Attention Span Ability: Unable to Sustain Attention Patient Reliability: Questionable Historian Fund of knowledge: Yes below average Intelligence Estimate: Below Average Judgment: Poor Insight: Minimal
[2018-08-22 14:52] LABS: Basophils % 0.3 %; Eosinophils # 0.2 K/mcL (0.0-0.6); Eosinophils % 1.7 %; Hematocrit 39.4 % (37.5-50.1); Hemoglobin 13.3 g/dL (12.9-16.9); Lymphocytes # 2.3 K/mcL (0.6-4.6); Lymphocytes % 25.1 %; Mean Corpuscular HGB Conc 33.8 g/dL (31.6-35.5); Mean Corpuscular Hemoglobin 31.3 pg (28.0-33.3); Mean Corpuscular Volume 92.7 fL (83.0-100.0); Mean Platelet Volume 10.4 fL (9.4-12.4); Monocytes # 0.8 K/mcL (0.0-1.3); Monocytes % 8.4 %; Neutrophils # 5.9 K/mcL (1.6-8.9); Platelet Count 151 K/mcL (140-400); Red Blood Count 4.25 M/mcL (4.19-5.50); Red Cell Distribution Width 13.2 % (11.5-14.5); Segmented Neutrophils % 63.5 %
[2018-08-22] MEDS: hydrOXYzine pamoate 25 MG CAPSULE PO PRN (21:01)
[2018-08-22] MEDS: traZODone 50 MG TABLET PO PRN (21:01)
[2018-08-23] MEDS: Famotidine 20 MG TABLET PO SCH ×2 (07:02→16:34)
[2018-08-23] MEDS: *HR* Metformin 500 MG TABLET PO SCH ×2 (07:02→16:35)
[2018-08-23] MEDS: RisperiDAL 3 MG TABLET PO SCH (08:59)
[2018-08-23] MEDS: Aspirin Enteric Coated 81 MG Tablet PO SCH (08:59)
[2018-08-23] MEDS: Metoprolol XL (24 HR) Succ 25 MG TAB.ER.24H PO SCH (08:59)
[2018-08-23] MEDS: Lisinopril 20 MG TABLET PO SCH (08:59)
[2018-08-23] MEDS: *HR* Glimepiride 2 MG TABLET PO SCH (08:59)
[2018-08-23] MEDS: Insulin DETEMIR 100 UNIT/ML X5UNITS SQ SCH (09:02)
--- NOTE | 2018-08-23 11:39 | Psychiatry Progress Note ---
Date of Encounter: 08/23/18 Time of Encounter: 11:00 Subjective Interval history: Patient seen today ,case d/w treatment [place] He was admitted from shelter for agitation, refusing his medication. he has h/o Schizophrenia and has intellectual impairement. Has guardian and as per her he has detoriated since his clozaril was discontinued. he was on risperdal and seroquel , depakote. since admission depakote has not been given , and other medications continued , his labs , cbc with diff. is wnl and therefore will dc seroquel and slowly taper up clozaril to 100 mg bid, at present no agitation remains paranoid and internally preoccupied, his risperdal will be tapered slowly. continue observation and stabilization. patient agreed with plan , he admitted clozaril was good for him. Review of Systems Psychiatric: Reports: abnormal sleep pattern, auditory hallucinations, difficulty concentrating, irritability Results - Vital Signs Vital Signs: Temp Pulse Resp BP Pulse Ox 96.6 F L 88 16 115/79 100 08/23/18 10:00 08/23/18 10:00 08/23/18 10:00 08/23/18 10:00 08/18/18 21:05 - Labs Labs: Laboratory Results - last 24 hr 08/22/18 08/22/18 08/22/18 11:41 14:25 16:49 WBC 9.2 RBC 4.25 Hgb 13.3 Hct 39.4 MCV 92.7 MCH 31.3 MCHC 33.8 RDW 13.2 Plt Count 151 MPV 10.4 Immature Gran % 1.0 Seg Neutrophils % 63.5 Lymphocytes % 25.1 Monocytes % 8.4 Eosinophils % 1.7 Basophils % 0.3 Neutrophils # 5.9 Lymphocytes # 2.3 Monocytes # 0.8 Eosinophils # 0.2 Basophils # 0.0 POC Glucose 249 H 276 H 08/22/18 08/23/18 21:18 08:48 WBC RBC Hgb Hct MCV MCH MCHC RDW Plt Count MPV Immature Gran % Seg Neutrophils % Lymphocytes % Monocytes % Eosinophils % Basophils % Neutrophils # Lymphocytes # Monocytes # Eosinophils # Basophils # POC Glucose 251 H 150 H Assessment and Plan (1) Agitation Current visit: Yes Status: Acute Risks, benefits, side effects, alternatives discussed w/pt: Yes Patient agreeable to treatment: Yes (2) Schizophrenia Current visit: No Status: Acute Risks, benefits, side effects, alternatives discussed w/pt: Yes Patient agreeable to treatment: Yes Qualifiers: Schizophrenia type: unspecified Qualified Code(s): F20.9 - Schizophrenia, unspecified Consult Discharge Plan - Plan Referrals: [facility] [Outside] - 09/04/18 1:20 pm (The above appointment is with Dr. Chatman and Dr. Nye for outpatient psychiatric assessment and medication management services.) Psychiatry Exam - Constitutional Vitals: Temp Pulse Resp BP Pulse Ox 96.6 F L 88 16 115/79 100 08/23/18 10:00 08/23/18 10:00 08/23/18 10:00 08/23/18 10:00 08/18/18 21:05 General appearance: age & developmentally appropriate - Musculoskeletal Gait: normal Station: relaxed Strength & Tone: normal for patient - Psychiatric Patient Orientation: Yes Person, Yes Time, Yes Place Level of alertness: Alert Behavior: guarded, withdrawn Psychomotor activity: Normal Eye Contact: Minimal Contact Mood Description: Euthymic/stable Affect description: blunted Speech Volume: Normal Speech pattern: slowed Language & Vocabulary: limited Thought Process: [place] Thought Content: Yes Preoccupation, Yes Paranoid delusion Perceptual Disturbances: Yes Reacting to internal stimuli Attention Span Ability: Unable to Sustain Attention Patient Reliability: Questionable Historian Fund of knowledge: Yes below average Intelligence Estimate: Below Average Judgment: Limited Insight: Minimal
[2018-08-23] MEDS: cloZAPine 25 MG TABLET PO SCH (20:27)
[2018-08-23] MEDS: hydrOXYzine pamoate 25 MG CAPSULE PO PRN (22:33)
[2018-08-23] MEDS: traZODone 50 MG TABLET PO PRN (22:33)
[2018-08-24] MEDS: Famotidine 20 MG TABLET PO SCH ×2 (06:31→17:28)
[2018-08-24] MEDS: Lisinopril 20 MG TABLET PO SCH (09:14)
[2018-08-24] MEDS: RisperiDAL 3 MG TABLET PO SCH (09:14)
[2018-08-24] MEDS: cloZAPine 25 MG TABLET PO SCH ×2 (09:14→21:43)
[2018-08-24] MEDS: *HR* Glimepiride 2 MG TABLET PO SCH (09:14)
[2018-08-24] MEDS: *HR* Metformin 500 MG TABLET PO SCH ×2 (09:14→17:28)
[2018-08-24] MEDS: Aspirin Enteric Coated 81 MG Tablet PO SCH (09:14)
[2018-08-24] MEDS: Metoprolol XL (24 HR) Succ 25 MG TAB.ER.24H PO SCH (11:39)
[2018-08-24] MEDS: Insulin DETEMIR 100 UNIT/ML X5UNITS SQ SCH (12:02)
--- NOTE | 2018-08-24 12:24 | Psychiatry Progress Note ---
Date of Encounter: 08/24/18 Time of Encounter: 12:22 Subjective Interval history: Client reports he is doing well except for anxiety. Very pleasant. Chronic Schizophrenia. Experiencing AH. Recently restarted on Clozapine as guardian feels this is what worked best for him. Will continue to titrate this slowly based on labs. Guardian looking into a new half-way. Will not be looking at discharge soon. Review of Systems Constitutional: Denies: fever, chills, weakness, weight change Eyes: Denies: eye pain, vision change Ears, Nose, Throat: Denies: ear pain, throat pain, dental pain, hearing loss, congestion Cardiovascular: Denies: chest pain, palpitations, dyspnea on exertion Respiratory: Denies: cough, dyspnea, wheezes Gastrointestinal: Denies: abdominal pain, nausea, vomiting, diarrhea, constipation Musculoskeletal: Denies: joint swelling, joint pain Neurological: Denies: headache, weakness, numbness, memory loss Psychiatric: Reports: abnormal sleep pattern, auditory hallucinations, difficulty concentrating, irritability Results - Vital Signs Vital Signs: Temp Pulse Resp BP Pulse Ox 96.5 F L 73 16 92/69 100 08/24/18 09:00 08/24/18 09:00 08/24/18 09:00 08/24/18 09:00 08/18/18 21:05 - Labs Labs: Laboratory Results - last 24 hr 08/23/18 08/23/18 08/24/18 16:32 21:51 08:13 POC Glucose 265 H 173 H 169 H 08/24/18 11:43 POC Glucose 221 H Assessment and Plan (1) Schizophrenia Current visit: No Status: Acute Plan: Continue hospitalization, Close observation, Suicide Precautions per unit protocol, Encourage participation in unit milieu, Group Therapy, Monitor sleep, Monitor appetite Risks, benefits, side effects, alternatives discussed w/pt: Yes Patient agreeable to treatment: Yes Qualifiers: Schizophrenia type: unspecified Qualified Code(s): F20.9 - Schizophrenia, unspecified Consult Discharge Plan - Plan Referrals: [facility] [Outside] - 09/04/18 1:20 pm (The above appointment is with Dr. Chatman and Dr. Nye for outpatient psychiatric assessment and medication management services.) Psychiatry Exam - Constitutional Vitals: Temp Pulse Resp BP Pulse Ox 96.5 F L 73 16 92/69 100 08/24/18 09:00 08/24/18 09:00 08/24/18 09:00 08/24/18 09:00 08/18/18 21:05 General appearance: age & developmentally appropriate - Musculoskeletal Gait: normal Station: other, relaxed Strength & Tone: normal for patient - Psychiatric Patient Orientation: Yes Person, Yes Time, Yes Place Level of alertness: Alert Behavior: calm, cooperative Psychomotor activity: Normal Eye Contact: Maintains Eye Contact Mood Description: Anxious Affect description: congruent with mood Speech Volume: Normal Speech pattern: normal rate, normal rhythm, normal tone, fluent, spontaneous Language & Vocabulary: consistent with education Thought Process: Linear Thought Content: No Suicidal ideation, No Homicidal ideation, No Overt delusions Perceptual Disturbances: Yes Auditory hallucinations Attention Span Ability: Capable of Focused Attention Memory Description: Grossly Intact Patient Reliability: Questionable Historian Fund of knowledge: Yes abstraction ability, Yes aware of current events Intelligence Estimate: Average Judgment: Limited Insight: Partial
[2018-08-25] MEDS: Famotidine 20 MG TABLET PO SCH ×2 (07:07→16:41)
[2018-08-25] MEDS: cloZAPine 25 MG TABLET PO SCH ×2 (08:27→20:23)
[2018-08-25] MEDS: *HR* Metformin 500 MG TABLET PO SCH ×2 (08:27→16:41)
[2018-08-25] MEDS: Aspirin Enteric Coated 81 MG Tablet PO SCH (08:28)
[2018-08-25] MEDS: *HR* Glimepiride 2 MG TABLET PO SCH (08:28)
[2018-08-25] MEDS: Lisinopril 20 MG TABLET PO SCH (08:28)
[2018-08-25] MEDS: RisperiDAL 3 MG TABLET PO SCH (08:28)
[2018-08-25] MEDS: Insulin DETEMIR 100 UNIT/ML X5UNITS SQ SCH (08:28)
[2018-08-25] MEDS: Metoprolol XL (24 HR) Succ 25 MG TAB.ER.24H PO SCH (08:28)
--- NOTE | 2018-08-25 11:36 | Psychiatry Progress Note ---
Date of Encounter: 08/25/18 Time of Encounter: 11:30 Subjective Interval history: Doing well but client showed me his feet today and they are dry and cracked. He reports they are painful when he walks. Will order Amlactin Lotion for them. On the unit he has been very pleasant. Laughing a lot with this automotive service writer. States he likes to laugh and sing. Cooperative with staff. Med compliant. Chronic Schizophrenia but likely at baseline. Awaiting halfway placement. Guardian visited last night. She thinks she has found a new place. Not open yet but will be soon. She thinks he will be able to go there straight from the hospital. Review of Systems Constitutional: Denies: fever, chills, weakness, weight change Eyes: Denies: eye pain, vision change Ears, Nose, Throat: Denies: ear pain, throat pain, dental pain, hearing loss, congestion Cardiovascular: Denies: chest pain, palpitations, dyspnea on exertion Respiratory: Denies: cough, dyspnea, wheezes Gastrointestinal: Denies: abdominal pain, nausea, vomiting, diarrhea, constipation Musculoskeletal: Denies: joint swelling, joint pain Integumentary: Reports: other Neurological: Denies: headache, weakness, numbness, memory loss Psychiatric: Reports: abnormal sleep pattern, auditory hallucinations, difficulty concentrating, irritability Results - Vital Signs Vital Signs: Temp Pulse Resp BP Pulse Ox 98.2 F 101 16 115/79 100 08/25/18 09:00 08/25/18 09:00 08/25/18 09:00 08/25/18 09:00 08/18/18 21:05 - Labs Labs: Laboratory Results - last 24 hr 08/24/18 08/24/18 08/25/18 11:43 16:50 07:56 POC Glucose 221 H 97 122 H Assessment and Plan (1) Schizophrenia Current visit: No Status: Acute Plan: Continue hospitalization, Close observation, Suicide Precautions per unit protocol, Encourage participation in unit milieu, Group Therapy, Monitor sleep, Monitor appetite Risks, benefits, side effects, alternatives discussed w/pt: Yes Patient agreeable to treatment: Yes Qualifiers: Schizophrenia type: unspecified Qualified Code(s): F20.9 - Schizophrenia, unspecified Consult Discharge Plan - Plan Referrals: [facility] [Outside] - 09/04/18 1:20 pm (The above appointment is with Dr. Chatman and Dr. Nye for outpatient psychiatric assessment and medication management services.) Psychiatry Exam - Constitutional Vitals: Temp Pulse Resp BP Pulse Ox 98.2 F 101 16 115/79 100 08/25/18 09:00 08/25/18 09:00 08/25/18 09:00 08/25/18 09:00 08/18/18 21:05 General appearance: age & developmentally appropriate - Musculoskeletal Gait: normal Station: relaxed Strength & Tone: normal for patient - Psychiatric Patient Orientation: Yes Person, Yes Time, Yes Place Level of alertness: Alert Behavior: calm, cooperative Psychomotor activity: Normal Eye Contact: Maintains Eye Contact Mood Description: Euthymic/stable Affect description: congruent with mood Speech Volume: Normal Speech pattern: normal rate, normal rhythm, normal tone, fluent, spontaneous Language & Vocabulary: consistent with education Thought Process: Tangential Thought Content: No Suicidal ideation, No Homicidal ideation, No Overt delusions Perceptual Disturbances: Yes Auditory hallucinations Attention Span Ability: Capable of Focused Attention Memory Description: Grossly Intact Patient Reliability: Questionable Historian Fund of knowledge: Yes abstraction ability, Yes aware of current events Intelligence Estimate: Average Judgment: Fair Insight: Partial
[2018-08-25] MEDS: hydrOXYzine pamoate 25 MG CAPSULE PO PRN (20:24)
[2018-08-26] MEDS: Ammonium Lactate 30 APPL/225 GM BOTTLE TP SCH ×3 (00:48→20:59)
[2018-08-26] MEDS: Famotidine 20 MG TABLET PO SCH ×2 (06:46→17:47)
[2018-08-26] MEDS: cloZAPine 25 MG TABLET PO SCH ×3 (08:01→20:59)
[2018-08-26] MEDS: Lisinopril 20 MG TABLET PO SCH (08:01)
[2018-08-26] MEDS: Metoprolol XL (24 HR) Succ 25 MG TAB.ER.24H PO SCH (08:01)
[2018-08-26] MEDS: Aspirin Enteric Coated 81 MG Tablet PO SCH (08:01)
[2018-08-26] MEDS: *HR* Glimepiride 2 MG TABLET PO SCH (08:02)
[2018-08-26] MEDS: RisperiDAL 3 MG TABLET PO SCH (08:02)
[2018-08-26] MEDS: Insulin DETEMIR 100 UNIT/ML X5UNITS SQ SCH (08:03)
[2018-08-26] MEDS: *HR* Metformin 500 MG TABLET PO SCH ×2 (08:16→17:47)
--- NOTE | 2018-08-26 14:28 | Psychiatry Progress Note ---
Date of Encounter: 08/26/18 Time of Encounter: 14:30 Subjective Interval history: ID: 57 yo W Male CC: all my clothes are in [place] HPI: The patient was seen today. He has been attending groups has been more interactive. The patient remains on clozapine and Klonopin however his clozapine dose is 25 mg twice a day. The patient is willing to increase his medicine. He is currently bothered by his foot is been given a prescription for cream to help with a cracked dry skin. The patient is currently tolerated medicine he is reported significant side effects. The target dose is 100 mg twice a day. We talked about where he could live a like the town [place] although he is also lived in [place] and he thinks the [place] is too big and too dangerous for him to live in. He has heard auditory hallucinations and says he is not hearing them now. 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 He is gone to the [employer] since he was very young. Review of Systems Psychiatric: Reports: abnormal sleep pattern, auditory hallucinations, difficulty concentrating, irritability Results - Vital Signs Vital Signs: Temp Pulse Resp BP Pulse Ox 97.1 F L 94 16 108/74 100 08/26/18 08:35 08/26/18 08:35 08/26/18 08:35 08/26/18 08:35 08/18/18 21:05 - Labs Labs: Laboratory Results - last 24 hr 08/25/18 08/25/18 08/26/18 16:34 20:03 07:58 POC Glucose 234 H 218 H 189 H 08/26/18 11:52 POC Glucose 254 H Assessment and Plan (1) Schizophrenia Current visit: No Status: Acute Plan: Continue hospitalization, Close observation, Suicide Precautions per unit protocol, Encourage participation in unit milieu, Group Therapy, Monitor sleep Risks, benefits, side effects, alternatives discussed w/pt: Yes Patient agreeable to treatment: Yes Qualifiers: Schizophrenia type: undifferentiated schizophrenia Qualified Code(s): F20.3 - Undifferentiated schizophrenia Consult Discharge Plan - Plan Referrals: [facility] [Outside] - 09/04/18 1:20 pm (The above appointment is with Dr. Chatman and Dr. Nye for outpatient psychiatric assessment and medication management services.) Psychiatry Exam - Constitutional Vitals: Temp Pulse Resp BP Pulse Ox 97.1 F L 94 16 108/74 100 10/08/18 08:35 08/26/18 08:35 08/26/18 08:35 08/26/18 08:35 08/18/18 21:05 General appearance: age & developmentally appropriate, well-groomed, well- nourished - Musculoskeletal Gait: normal Station: relaxed Strength & Tone: normal for patient - Psychiatric Patient Orientation: Yes Person, Yes Time, Yes Place Level of alertness: Alert Behavior: calm, cooperative Psychomotor activity: Slowed Eye Contact: Maintains Eye Contact Mood Description: Other Affect description: congruent with mood, full range Speech Volume: Normal Speech pattern: normal rate, normal rhythm, normal tone, fluent, spontaneous Language & Vocabulary: limited Thought Process: Linear, Goal Oriented Thought Content: No Suicidal ideation, No Homicidal ideation, No Overt delusions Perceptual Disturbances: Yes Auditory hallucinations, No Visual hallucinations Memory Description: Grossly Intact Patient Reliability: Questionable Historian Fund of knowledge: Yes abstraction ability, Yes aware of current events Intelligence Estimate: Below Average Judgment: Limited Insight: Minimal
[2018-08-26] MEDS: traZODone 50 MG TABLET PO PRN (20:59)
[2018-08-26] MEDS: hydrOXYzine pamoate 25 MG CAPSULE PO PRN (20:59)
[2018-08-27] MEDS: Famotidine 20 MG TABLET PO SCH ×2 (06:40→17:01)
[2018-08-27] MEDS: Lisinopril 20 MG TABLET PO SCH (08:41)
[2018-08-27] MEDS: *HR* Metformin 500 MG TABLET PO SCH ×2 (08:41→17:01)
[2018-08-27] MEDS: Metoprolol XL (24 HR) Succ 25 MG TAB.ER.24H PO SCH (08:41)
[2018-08-27] MEDS: Aspirin Enteric Coated 81 MG Tablet PO SCH (08:41)
[2018-08-27] MEDS: cloZAPine 25 MG TABLET PO SCH ×4 (08:41→20:41)
[2018-08-27] MEDS: RisperiDAL 3 MG TABLET PO SCH (08:42)
[2018-08-27] MEDS: *HR* Glimepiride 2 MG TABLET PO SCH (08:42)
[2018-08-27] MEDS: Insulin DETEMIR 100 UNIT/ML X5UNITS SQ SCH (08:44)
[2018-08-27] MEDS: Ammonium Lactate 30 APPL/225 GM BOTTLE TP SCH ×2 (09:58→20:39)
--- NOTE | 2018-08-27 11:41 | Psychiatry Progress Note ---
Date of Encounter: 08/27/18 Time of Encounter: 10:45 Subjective Interval history: ID the patient is a 57-year-old white male. Chief complaint: I was able to sleep okay. History of present illness. The patient was previously on a dose of clozapine 100 mg twice a day. This was last in November 2016. It may be that the patient had a blood dyscrasia associated with it but the REMS protocol did not detect this. It may be that the patient had leukopenia. Nonetheless the patient is tolerated the medicine without significant dizziness unsteadiness pooling sweating or sedation. He agrees that the medicine could be increased. I discussed with him the possibility of increasing by 25 mg per day to get to the target dose. The patient agreed to this and we did discuss some vocational activities he is been involved in. The patient prefers the [facility] to the [facility]. Review of Systems Psychiatric: Reports: abnormal sleep pattern, auditory hallucinations, difficulty concentrating Results - Vital Signs Vital Signs: Temp Pulse Resp BP Pulse Ox 97.7 F 95 16 148/83 100 08/27/18 08:34 08/27/18 08:34 08/27/18 08:34 08/27/18 08:34 08/18/18 21:05 - Labs Labs: Laboratory Results - last 24 hr 08/26/18 08/26/18 08/26/18 11:52 16:42 19:31 POC Glucose 254 H 270 H 308 H 08/27/18 08:14 POC Glucose 162 H Assessment and Plan (1) Schizophrenia Current visit: Yes Status: Acute Plan: Continue hospitalization, Close observation, Suicide Precautions per unit protocol, Encourage participation in unit milieu, Group Therapy, Monitor sleep, Monitor appetite, Secure weapons, Family/Supportive other meeting Risks, benefits, side effects, alternatives discussed w/pt: Yes Patient agreeable to treatment: Yes Qualifiers: Schizophrenia type: undifferentiated schizophrenia Qualified Code(s): F20.3 - Undifferentiated schizophrenia Consult Discharge Plan - Plan Referrals: [facility] [Outside] - 09/04/18 1:20 pm (The above appointment is with Dr. Chatman and Dr. Nye for outpatient psychiatric assessment and medication management services.) Psychiatry Exam - Constitutional Vitals: Temp Pulse Resp BP Pulse Ox 97.7 F 95 16 148/83 100 08/27/18 08:34 08/27/18 08:34 08/27/18 08:34 08/27/18 08:34 08/18/18 21:05 General appearance: age & developmentally appropriate, well-groomed, well- nourished - Musculoskeletal Gait: slow Station: relaxed Strength & Tone: normal for patient - Psychiatric Patient Orientation: Yes Person, Yes Time, Yes Place Level of alertness: Alert Behavior: calm, cooperative, distractible Psychomotor activity: Slowed Eye Contact: Maintains Eye Contact Mood Description: Other Patient description of mood: neutral Affect description: congruent with mood, full range Speech Volume: Normal Speech pattern: normal rate, normal rhythm, normal tone, fluent, spontaneous Language & Vocabulary: consistent with education Thought Process: Linear, Goal Oriented Thought Content: No Suicidal ideation, No Homicidal ideation, No Overt delusions Perceptual Disturbances: Yes Auditory hallucinations, No Visual hallucinations Attention Span Ability: Capable of Sustained Attention Memory Description: Grossly Intact Patient Reliability: Questionable Historian Intelligence Estimate: Below Average Judgment: Limited Insight: Minimal
[2018-08-27] MEDS: traZODone 50 MG TABLET PO PRN (20:40)
[2018-08-27] MEDS: hydrOXYzine pamoate 25 MG CAPSULE PO PRN (20:41)
[2018-08-27] MEDS: Ibuprofen 400 MG TABLET PO PRN (20:41)
[2018-08-28] MEDS: Famotidine 20 MG TABLET PO SCH ×2 (06:42→17:05)
[2018-08-28] MEDS: *HR* Metformin 500 MG TABLET PO SCH ×2 (08:39→17:05)
[2018-08-28] MEDS: Metoprolol XL (24 HR) Succ 25 MG TAB.ER.24H PO SCH (08:39)
[2018-08-28] MEDS: *HR* Glimepiride 2 MG TABLET PO SCH (08:39)
[2018-08-28] MEDS: cloZAPine 25 MG TABLET PO SCH ×2 (08:40→08:46)
[2018-08-28] MEDS: Insulin DETEMIR 100 UNIT/ML X5UNITS SQ SCH (08:41)
[2018-08-28] MEDS: Lisinopril 20 MG TABLET PO SCH (08:41)
[2018-08-28] MEDS: Aspirin Enteric Coated 81 MG Tablet PO SCH (08:41)
[2018-08-28] MEDS: RisperiDAL 3 MG TABLET PO SCH (08:41)
[2018-08-28] MEDS: Ammonium Lactate 30 APPL/225 GM BOTTLE TP SCH ×2 (08:45→20:40)
[2018-08-28 10:09] LABS: Basophils % 0.3 %; Eosinophils # 0.2 K/mcL (0.0-0.6); Eosinophils % 2.7 %; Hematocrit 39.1 % (37.5-50.1); Immature Granulocytes % 0.4 % (0-4); Lymphocytes # 2.2 K/mcL (0.6-4.6); Lymphocytes % 28.2 %; Mean Corpuscular HGB Conc 33.2 g/dL (31.6-35.5); Mean Corpuscular Hemoglobin 30.7 pg (28.0-33.3); Mean Corpuscular Volume 92.4 fL (83.0-100.0); Mean Platelet Volume 10.3 fL (9.4-12.4); Monocytes # 0.5 K/mcL (0.0-1.3); Monocytes % 6.4 %; Neutrophils # 4.7 K/mcL (1.6-8.9); Platelet Count 180 K/mcL (140-400); Red Blood Count 4.23 M/mcL (4.19-5.50); Red Cell Distribution Width 13.1 % (11.5-14.5)
[2018-08-28 11:39] LABS: Estimated Average Glucose 166 mg/dl; Hemoglobin A1C 7.4 %
--- NOTE | 2018-08-28 14:42 | Psychiatry Progress Note ---
Date of Encounter: 08/28/18 Time of Encounter: 14:30 Subjective Interval history: D the patient is a 57-year-old white male. Chief complaint I feel tired like my muscles are weak. History of present illness. The patient's been admitted and started on medicines for schizophrenia most notably clozapine. A gradual titration of clozapine was given and the patient's increasing by 25 mg per day this was in twice a day or 3 times a day dosing. Thus today the patient is seen in slowing down he is awake but he feels overall week. He denies other features such as sweating or extreme dizziness or excessive salivation. He is not able to describe fully but he is pleasant and cooperative in the interview. He was informed of the side effects of clozapine and verbalizes understanding and however reinforcement. Be necessary. Laboratory studies were also obtained today and reviewed Review of Systems Psychiatric: Reports: abnormal sleep pattern, auditory hallucinations Results - Vital Signs Vital Signs: Temp Pulse Resp BP Pulse Ox 96.8 F L 92 16 112/83 100 08/28/18 09:00 08/28/18 09:00 08/28/18 09:00 08/28/18 09:00 08/18/18 21:05 - Labs Labs: Laboratory Results - last 24 hr 08/27/18 08/27/18 08/28/18 16:37 19:50 08:09 WBC RBC Hgb Hct MCV MCH MCHC RDW Plt Count MPV Immature Gran % Seg Neutrophils % Lymphocytes % Monocytes % Eosinophils % Basophils % Neutrophils # Lymphocytes # Monocytes # Eosinophils # Basophils # POC Glucose 221 H 266 H 129 H Est Mean Plasma Glucose Hemoglobin A1c 08/28/18 08/28/18 09:51 09:51 WBC 7.7 RBC 4.23 Hgb 13.0 Hct 39.1 MCV 92.4 MCH 30.7 MCHC 33.2 RDW 13.1 Plt Count 180 MPV 10.3 Immature Gran % 0.4 Seg Neutrophils % 62.0 Lymphocytes % 28.2 Monocytes % 6.4 Eosinophils % 2.7 Basophils % 0.3 Neutrophils # 4.7 Lymphocytes # 2.2 Monocytes # 0.5 Eosinophils # 0.2 Basophils # 0.0 POC Glucose Est Mean Plasma Glucose 166 Hemoglobin A1c 7.4 H Assessment and Plan (1) Schizophrenia Current visit: Yes Status: Acute Plan: Continue hospitalization, Close observation, Suicide Precautions per unit protocol, Encourage participation in unit milieu, Group Therapy, Monitor sleep, Monitor appetite, Secure weapons Risks, benefits, side effects, alternatives discussed w/pt: Yes Patient agreeable to treatment: Yes Qualifiers: Schizophrenia type: undifferentiated schizophrenia Qualified Code(s): F20.3 - Undifferentiated schizophrenia Consult Discharge Plan - Plan Referrals: [facility] [Outside] - 09/04/18 1:20 pm (The above appointment is with Dr. Chatman and Dr. Nye for outpatient psychiatric assessment and medication management services.) Psychiatry Exam - Constitutional Vitals: Temp Pulse Resp BP Pulse Ox 96.8 F L 92 16 112/83 100 08/28/18 09:00 08/28/18 09:00 08/28/18 09:00 08/28/18 09:00 08/18/18 21:05 General appearance: age & developmentally appropriate, well-groomed, well- nourished - Musculoskeletal Gait: normal Station: relaxed Strength & Tone: normal for patient - Psychiatric Patient Orientation: Yes Person, Yes Time, Yes Place Level of alertness: Alert Behavior: calm, cooperative Psychomotor activity: Normal Eye Contact: Maintains Eye Contact Mood Description: Other Affect description: congruent with mood, full range Speech Volume: Normal Speech pattern: normal rate, normal rhythm, normal tone, fluent, spontaneous Language & Vocabulary: consistent with education Thought Process: Linear, Goal Oriented, Circumstantial, Sophia, Slowed Thinking Thought Content: No Suicidal ideation, No Homicidal ideation, No Overt delusions Perceptual Disturbances: Yes Auditory hallucinations, No Visual hallucinations Attention Span Ability: Capable of Focused Attention Memory Description: Grossly Intact Patient Reliability: Reliable Historian Fund of knowledge: Yes below average Intelligence Estimate: Below Average Judgment: Limited Insight: Minimal
[2018-08-28] MEDS: Ibuprofen 400 MG TABLET PO PRN (16:00)
[2018-08-28] MEDS ORDERED: cloZAPine 25 MG TABLET PO ONE (21:00)
[2018-08-29] MEDS: Insulin DETEMIR 100 UNIT/ML X5UNITS SQ SCH (08:57)
[2018-08-29] MEDS: RisperiDAL 3 MG TABLET PO SCH (08:58)
[2018-08-29] MEDS: Lisinopril 20 MG TABLET PO SCH (08:58)
[2018-08-29] MEDS: Famotidine 20 MG TABLET PO SCH ×2 (08:58→16:03)
[2018-08-29] MEDS: Metoprolol XL (24 HR) Succ 25 MG TAB.ER.24H PO SCH (08:58)
[2018-08-29] MEDS: *HR* Metformin 500 MG TABLET PO SCH ×2 (08:58→16:03)
[2018-08-29] MEDS: Aspirin Enteric Coated 81 MG Tablet PO SCH (08:58)
[2018-08-29] MEDS: *HR* Glimepiride 2 MG TABLET PO SCH (08:58)
[2018-08-29] MEDS: Ammonium Lactate 30 APPL/225 GM BOTTLE TP SCH ×2 (09:04→21:15)
[2018-08-29] MEDS: Ibuprofen 400 MG TABLET PO PRN (09:27)
--- NOTE | 2018-08-29 12:46 | Psychiatry Progress Note ---
Date of Encounter: 08/29/18 Time of Encounter: 12:30 Subjective Interval history: ID the patient is a 57-year-old single white male. Chief complaint I need to get some exercise like walking. History of present illness. The patient notes that he had auditory hallucinations but thinks that they got went away. He has not engaged in any swearing or spitting or other unusual or grossly disorganized behavior. The patient is tolerated the medicine clozapine has not had dizziness falls but has had increased salivation at night and woke up with a wet pull. The patient has had a CBC that was within acceptable ranges including the absolute neutrophil count. The patient is looking forward to going [place] [facility]. His sister is also in favor of this she is his legal guardian. The patient likes the [facility]. Does not like the town of [facility] because he thinks there is too much drugs going on there. He will require a gradual titration to 200 mg of clozapine this should be accomplished with in several days. A CBC with differential will be ordered for Sunday and I have written a prescription for CBC with differential weekly blood draw once a week for the next 26 weeks this is required by the clozapine risk evaluation and management program Review of Systems Psychiatric: Reports: abnormal sleep pattern, auditory hallucinations Results - Vital Signs Vital Signs: Temp Pulse Resp BP Pulse Ox 98.5 F 108 18 122/85 100 08/29/18 09:00 08/29/18 09:00 08/29/18 09:00 08/29/18 09:00 08/18/18 21:05 - Labs Labs: Laboratory Results - last 24 hr 08/28/18 08/28/18 08/29/18 09:51 16:55 08:29 POC Glucose 240 H 150 H Est Mean Plasma Glucose 166 Hemoglobin A1c 7.4 H 08/29/18 11:56 POC Glucose 290 H Est Mean Plasma Glucose Hemoglobin A1c Assessment and Plan (1) Schizophrenia Current visit: Yes Status: Acute Plan: Continue hospitalization, Close observation, Suicide Precautions per unit protocol, Encourage participation in unit milieu, Group Therapy, Monitor sleep, Monitor appetite, Secure weapons, Family/Supportive other meeting Risks, benefits, side effects, alternatives discussed w/pt: Yes Patient agreeable to treatment: Yes Qualifiers: Schizophrenia type: undifferentiated schizophrenia Qualified Code(s): F20.3 - Undifferentiated schizophrenia Consult Discharge Plan - Plan Referrals: [facility] [Outside] - 09/04/18 1:20 pm (The above appointment is with Dr. Chatman and Dr. Nye for outpatient psychiatric assessment and medication management services.) [facility] [Outside] - 09/09/18 11:00 am (The above appointment is with Arianna Jamil for outpatient case management services.) Psychiatry Exam - Constitutional Vitals: Temp Pulse Resp BP Pulse Ox 98.5 F 108 18 122/85 100 08/29/18 09:00 08/29/18 09:00 08/29/18 09:00 08/29/18 09:00 08/18/18 21:05 General appearance: age & developmentally appropriate, well-groomed, well- nourished - Musculoskeletal Gait: normal Station: relaxed Strength & Tone: normal for patient - Psychiatric Patient Orientation: Yes Person, Yes Time, Yes Place Level of alertness: Alert Behavior: calm, cooperative Psychomotor activity: Normal Eye Contact: Maintains Eye Contact Mood Description: Euthymic/stable Affect description: congruent with mood, full range Speech Volume: Normal Speech pattern: normal rate, normal rhythm, normal tone, fluent, spontaneous Language & Vocabulary: consistent with education Thought Process: Linear, Goal Oriented Thought Content: No Suicidal ideation, No Homicidal ideation, No Overt delusions Perceptual Disturbances: Yes Auditory hallucinations, No Visual hallucinations Attention Span Ability: Capable of Sustained Attention Memory Description: Grossly Intact Patient Reliability: Questionable Historian Intelligence Estimate: Below Average Judgment: Fair Insight: Partial
[2018-08-29] MEDS ORDERED: cloZAPine 25 MG TABLET PO ONE (21:00)
[2018-08-30] MEDS: Famotidine 20 MG TABLET PO SCH ×2 (07:16→16:08)
[2018-08-30] MEDS: RisperiDAL 3 MG TABLET PO SCH (08:25)
[2018-08-30] MEDS: Aspirin Enteric Coated 81 MG Tablet PO SCH (08:25)
[2018-08-30] MEDS: *HR* Glimepiride 2 MG TABLET PO SCH (08:25)
[2018-08-30] MEDS: Lisinopril 20 MG TABLET PO SCH (08:26)
[2018-08-30] MEDS: Metoprolol XL (24 HR) Succ 25 MG TAB.ER.24H PO SCH (08:26)
[2018-08-30] MEDS: *HR* Metformin 500 MG TABLET PO SCH ×2 (08:26→16:08)
[2018-08-30] MEDS: Ammonium Lactate 30 APPL/225 GM BOTTLE TP SCH (08:37)
[2018-08-30] MEDS: Insulin DETEMIR 100 UNIT/ML X5UNITS SQ SCH (08:44)
--- NOTE | 2018-08-30 13:14 | Psychiatry Progress Note ---
Date of Encounter: 08/30/18 Time of Encounter: 13:00 Subjective Interval history: ED the patient is a 57-year-old white male. Chief complaint I could lose some weight my stomach does not feel right I am having a little heartburn. History of present illness the patient is reported that he has not been feeling as well he is not showered and when talking to his sister on the phone she was concerned that he was not feeling well. The patient has also talked about diet and wanting to lose weight which his sister is reported is not usual for him. The patient has been continued on a clozapine dose. The patient did not report significant unsteadiness but had difficulty standing on 1 foot A physical exam was performed in the exam room with male medical student present. The patient had clear lungs to auscultation. Regular rate and rhythm without gallop the PMI was in the MCL. The the patient had no significant ankle edema. However in the physical examination the patient's abdomen was somewhat distended. It was tympanitic to percussion although bowel sounds were heard in all 4 quadrants. There are no masses that were felt although a slight rubbery and is on the right lower quadrant was obtained. The this was transient and not fixed area There is no rebound tenderness. Review of Systems Gastrointestinal: Reports: abdominal pain, nausea Psychiatric: Reports: depression, abnormal sleep pattern, auditory hallucinations Results - Vital Signs Vital Signs: Temp Pulse Resp BP Pulse Ox 97.2 F L 118 18 119/76 100 08/30/18 09:00 08/30/18 09:00 08/30/18 09:00 08/30/18 09:00 08/18/18 21:05 - Labs Labs: Laboratory Results - last 24 hr 08/29/18 08/29/18 08/30/18 16:04 20:27 08:19 POC Glucose 269 H 197 H 192 H Assessment and Plan (1) Schizophrenia Current visit: Yes Status: Acute Plan: Continue hospitalization, Close observation, Suicide Precautions per unit protocol, Encourage participation in unit milieu, Group Therapy, Monitor sleep, Monitor appetite, Secure weapons Risks, benefits, side effects, alternatives discussed w/pt: Yes Patient agreeable to treatment: Yes Qualifiers: 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 Chatman and Dr. Nye for outpatient psychiatric assessment and medication management services.) [facility] [Outside] - 09/09/18 11:00 am (The above appointment is with Arianna Jamil for outpatient case management services.) Psychiatry Exam - Constitutional Vitals: Temp Pulse Resp BP Pulse Ox 97.2 F L 118 18 119/76 100 08/30/18 09:00 08/30/18 09:00 08/30/18 09:00 08/30/18 09:00 08/18/18 21:05 General appearance: age & developmentally appropriate, well-groomed, well- nourished - Musculoskeletal Gait: normal, other Station: relaxed Strength & Tone: normal for patient - Psychiatric Patient Orientation: Yes Person, Yes Time, Yes Place Level of alertness: Alert Behavior: calm, cooperative Psychomotor activity: Normal Eye Contact: Maintains Eye Contact Mood Description: Euthymic/stable Affect description: congruent with mood, full range Speech Volume: Normal Speech pattern: normal rate, normal rhythm, normal tone, fluent, spontaneous Language & Vocabulary: consistent with education Thought Process: Linear, Goal Oriented Thought Content: No Suicidal ideation, No Homicidal ideation, No Overt delusions , Yes Obsessive thoughts Perceptual Disturbances: No Auditory hallucinations, No Visual hallucinations Attention Span Ability: Capable of Focused Attention Memory Description: Grossly Intact Patient Reliability: Reliable Historian Fund of knowledge: Yes abstraction ability, Yes aware of current events Intelligence Estimate: Average Judgment: Fair Insight: Partial
--- NOTE | 2018-08-30 15:24 | Internal Med History&Physical ---
Date of Encounter: 08/30/18 Time of Encounter: 02:45 Internal Medicine - H&P: HPI Chief complaint: abdominal tenderness, sensation of food in mouth History of present illness: Mr. Hough is a 57 year old male past medical history of schizophrenia, HTN, diabetes, bipolar disorder was admitted to psychiatric inpatient unit for agitation and effusion to take medication related to his schizophrenia. Patient 's Risperdal was tapered and he was started back on clozapine. Patient today had some nonspecific complaints of presence of food in his mouth if he eats too much, some abdominal tenderness. Hospice was consulted given patient had history of colitis which was treated on 05/06. On interview patient was was able to provide some history however reliability was very questionable. He complained that he feels food coming in his mouth if he eats too much but denies any heartburn sensation. Denies similar history in past. He complains that he has lost weight from 222 to 212lbs(however his current weight is 219). He feels his belly is distended however also mentioned studies present for a long time. Complains of some tenderness on the lower part of his abdomen. Denies any diarrhea fevers or chills. Also not documented fevers in chart. Had last bowel movement yesterday which was regular. Eyes any chest pain, difficulty breathing, back pain, bowel or urinary complaints, weakness numbness tingling, dizziness, headache, vision complaints or lightheadedness. Past Med Surg Social Fam HX - Past Medical History Medical history: diabetes, hyperlipidemia, hypertension Additional medical history: colitis Psychiatric history: bipolar, schizophrenia - Past Surgical History Surgical History: cholecystectomy, other Additional surgical history: colonoscopy - Social History Smoking Status: Never smoker Smokeless Tobacco Status: No Alcohol use: none Drug use: none Internal Medicine - H&P: Meds Aspirin [Lo-Dose Aspirin EC] 81 mg PO DAILY 08/18/18 [History] Atorvastatin [Lipitor] 40 mg PO HS 08/18/18 [History] Divalproex Sodium [Depakote] 500 mg PO TID 08/18/18 [History] Escitalopram [Lexapro] 20 mg PO DAILY 08/18/18 [History] Glimepiride [Amaryl] 2 mg PO DAILY 08/18/18 [History] Insulin Glargine [Lantus] 25 unit DAILY 08/18/18 [History] Lisinopril [Zestril] 20 mg PO DAILY 08/18/18 [History] Metformin HCl [Glucophage] 1,000 mg PO BID 08/18/18 [History] Metoprolol Succinate [Toprol Xl] 25 mg PO DAILY 08/18/18 [History] Quetiapine Fumarate [Quetiapine Fumarate ER] 50 mg PO HS 08/18/18 [History] Ranitidine HCl [Acid Retail Buyer] 150 mg PO BID 08/18/18 [History] risperiDONE [RisperDAL] 3 mg PO DAILY 08/18/18 [History] 3 Allergy/AdvReac Type Severity Reaction Status Date / Time No Known Allergies Allergy Verified 08/13/18 13:03 All Systems PM: A 10-system review of systems was performed and is negative for pertinent findings except as documented above in the HPI. - Constitutional Vitals: Temp Pulse Resp BP Pulse Ox 97.8 F 103 18 98/60 93 08/30/18 15:04 08/30/18 15:04 08/30/18 15:04 08/30/18 15:04 08/30/18 15:04 Exam: Constitutional: Vitals as noted. Conversant. No Apparent Distress. Obese. No obvious deformities. HEENT exam: Atraumatic, Normocephaly. PEARLA. Grossly normal hearing. Oropharyngeal exam unremarkable. Moist mucus membranes. poor dental hygiene. No JVD, carotid bruie, no cervical lymphadenopathy. Respiratory exam: Clear to auscultation bilaterally. No accessory muscle use, rales, rhonchi or wheezes Cardiovascular exam: RRR, +S1, +S2. no murmur, gallop, rubs. No chest wall tenderness GI/Abdominal exam: minimal tenderness on LLQ, Non-distended, normal bowel sounds , soft, no peritoneal signs. no orgenomegaly or mass appreciated. no hernia. Musculoskeletal exam: full ROM, no edema or cyanosis, warm, pulses palpable and symmetrical in UE/LE. no calf tenderness. Neurological exam: CN II-XII intact, AO X3, no focal deficits. no pronater drift , facial droop, speech deficit Skin exam: No skin rash, ulcer, purpura or ecchymosis. Pysc: AOx3, congruent mood, Internal Med - H&P Results - Labs CBC & Chem 7: 08/28/18 09:51 08/18/18 18:45 Labs: lab and CXR review from admission and most recent lab. - EKG Data EKG comments: 08/18 EKG reviewed- NSR - Assessment and plan (1) Abdominal discomfort Current Visit: Yes Status: Acute Assessment and plan: Patient with the week abdominal discomfort and some symptoms suggestive of GERD - Unlikely patient currently has colitis given history and physical - We will obtain CBC, CMP, lactic acid and upright abdominal x-ray to rule out any obstruction. - We will hold metoprolol given tachycardia and blood pressure on lower end . - Unlikely any infectious process ongoing - Tachycardia possibly related to medications. - Monitor for now - We will continue to follow (2) Schizophrenia Current Visit: Yes Status: Acute Assessment and plan: - Management as per psych Qualifiers: Schizophrenia type: undifferentiated schizophrenia Qualified Code(s): F20.3 - Undifferentiated schizophrenia (3) Diabetes mellitus Current Visit: No Status: Chronic Assessment and plan: - On Levemir 25 subcutaneous daily. Glimepiride and metformin daily - Continue Accu-Cheks . Currently reasonably controlled. Continue to monitor Qualifiers: Diabetes mellitus type: type 2 Diabetes mellitus terminologist insulin use: with fci use Diabetes mellitus complication status: without complication Qualified Code(s): E11.9 - Type 2 diabetes mellitus without complications; Z79.4 - MCFP (current) use of insulin (4) Hypertension Current Visit: No Status: Chronic Assessment and plan: - Blood pressure on the lower and and also slight tachycardia - We will hold metoprolol for now - Tachycardiac could be side effects from multiple psychiatric medication including clozapine, benztropine, diphenhydramine - We will continue to monitor Qualifiers: Hypertension type: essential hypertension Qualified Code(s): I10 - Essential (primary) hypertension - Time Spent With Patient Total time spent is greater than 50% in coordination of care (as documented) at patient's floor/unit and/or counseling patient: - VTE Reasons for not Prescribing Prophylaxis: Treatment not Indicated - Low risk for VTE
[2018-08-30] MEDS ORDERED: cloZAPine 25 MG TABLET PO ONE (21:00)
[2018-08-30] MEDS: cloZAPine 25 MG TABLET PO SCH (21:07)
[2018-08-30] MEDS ORDERED: Lactulose Oral Soln 20 GM/30 ML UDC PO SCH (22:30)
[2018-08-30] MEDS: MOM Conc 10 ML UD.LIQ PO PRN (23:33)
[2018-08-31] MEDS: Ammonium Lactate 30 APPL/225 GM BOTTLE TP SCH ×3 (01:31→20:27)
[2018-08-31 07:47] LABS: Basophils % 0.3 %; Eosinophils # 0.2 K/mcL (0.0-0.6); Eosinophils % 2.6 %; Hematocrit 40.6 % (37.5-50.1); Hemoglobin 13.6 g/dL (12.9-16.9); Immature Granulocytes % 0.3 % (0-4); Lymphocytes # 3.2 K/mcL (0.6-4.6); Lymphocytes % 33.6 %; Mean Corpuscular HGB Conc 33.5 g/dL (31.6-35.5); Mean Corpuscular Hemoglobin 31.1 pg (28.0-33.3); Mean Corpuscular Volume 92.7 fL (83.0-100.0); Mean Platelet Volume 10.2 fL (9.4-12.4); Monocytes # 0.5 K/mcL (0.0-1.3); Monocytes % 5.4 %; Neutrophils # 5.4 K/mcL (1.6-8.9); Platelet Count 205 K/mcL (140-400); Red Blood Count 4.38 M/mcL (4.19-5.50); Red Cell Distribution Width 12.5 % (11.5-14.5); Segmented Neutrophils % 57.8 %
--- NOTE | 2018-08-31 07:51 | Internal Med Progress Note ---
Hospitalist Progress Note - Encounter Date of Encounter: 08/31/18 Time of Encounter: 07:30 - Exam Vitals: Temp Pulse Resp BP Pulse Ox 97.1 F L 94 18 133/86 97 08/30/18 20:54 08/30/18 20:54 08/30/18 20:54 08/30/18 20:54 08/30/18 20:54 Exam: Constitutional: Vitals as noted. Conversant. No Apparent Distress. Obese. No obvious deformities. HEENT exam: Atraumatic, Normocephaly. PEARLA. Grossly normal hearing. Oropharyngeal exam unremarkable. Moist mucus membranes. poor dental hygiene. No JVD, carotid bruie, no cervical lymphadenopathy. Respiratory exam: Clear to auscultation bilaterally. No accessory muscle use, rales, rhonchi or wheezes Cardiovascular exam: RRR, +S1, +S2. no murmur, gallop, rubs. No chest wall tenderness GI/Abdominal exam: minimal tenderness on LLQ, Non-distended, normal bowel sounds , soft, no peritoneal signs. no orgenomegaly or mass appreciated. no hernia. Musculoskeletal exam: full ROM, no edema or cyanosis, warm, pulses palpable and symmetrical in UE/LE. no calf tenderness. Neurological exam: CN II-XII intact, AO X3, no focal deficits. no pronater drift , facial droop, speech deficit Skin exam: No skin rash, ulcer, purpura or ecchymosis. Pysc: AOx3, congruent mood, - Assessment and Plan (1) Abdominal discomfort Current Visit: Yes Status: Acute Assessment and Plan: Patient with the week abdominal discomfort and some symptoms suggestive of GERD - Unlikely patient currently has colitis given history and physical - We will obtain CBC, CMP, lactic acid and upright abdominal x-ray to rule out any obstruction. Abdominal xray showed constipation. Patient having regular bowel movements Continue laxatives/ stool softeners PRN (2) Tachycardia Current Visit: Yes Status: Acute Assessment and Plan: Possibly clozapine side effect as patient was recently started on clozapine Obtain TSH, repeat EKG. Last EKG on 08/19 was sinus rhythm Encourage oral hydration. Resume metoprol (3) Hypertension Current Visit: No Status: Chronic Assessment and Plan: Will resume metoprolol - Tachycardiac could be side effects from multiple psychiatric medication including clozapine, benztropine, diphenhydramine - We will continue to monitor (4) Schizophrenia Current Visit: Yes Status: Acute Assessment and Plan: - Management as per psych (5) Diabetes mellitus Current Visit: No Status: Chronic Assessment and Plan: - On Levemir 25 subcutaneous daily. Glimepiride and metformin daily - Continue Accu-Cheks . Currently reasonably controlled. Continue to monitor - Time Spent with Patient Total time spent is greater than 50% in coordination of care (as documented) at patient's floor/unit and/or counseling patient: Internal Medicine: Result - Labs CBC & Chem 7: 08/31/18 07:34 08/31/18 07:34 Labs: Short CBC 08/31/18 Range/Units 07:34 WBC 9.4 (4.3-11.1) K/mcL Hgb 13.6 (12.9-16.9) g/dL Hct 40.6 (37.5-50.1) % Plt Count 205 (140-400) K/mcL Neutrophils # 5.4 (1.6-8.9) K/mcL - Impressions Impressions KUB X-Ray 08/30/18 14:58 IMPRESSION: No evidence of obstruction. Large amount stool throughout the colon suggesting constipation. D/ / Anselmo Lopez MD / Anselmo Lopez MD Interpreting Provider: Anselmo Lopez MD - VTE Reasons for not Prescribing Prophylaxis: Treatment not Indicated - Low risk for VTE Consult Discharge Plan - Plan Referrals: [facility] [Outside] - 09/04/18 1:20 pm (The above appointment is with Dr. Chatman and Dr. Nye for outpatient psychiatric assessment and medication management services.) [facility] [Outside] - 09/09/18 11:00 am (The above appointment is with Arianna Jamil for outpatient case management services.) (3) Hypertension Qualifiers: Hypertension type: essential hypertension Qualified Code(s): I10 - Essential (primary) hypertension (4) Schizophrenia Qualifiers: Schizophrenia type: undifferentiated schizophrenia Qualified Code(s): F20.3 - Undifferentiated schizophrenia (5) Diabetes mellitus Qualifiers: Diabetes mellitus type: type 2 Diabetes mellitus adjunct faculty for medical terminology insulin use: with prison use Diabetes mellitus complication status: without complication Qualified Code(s): E11.9 - Type 2 diabetes mellitus without complications; Z79.4 - terminal operations supervisor (current) use of insulin
[2018-08-31 08:07] LABS: Alanine Aminotransferase 20 Units/L (7-52); Albumin 4.1 g/dL (3.5-5.7); Albumin/Globulin Ratio 1.5 (1.1-2.2); Alkaline Phosphatase 52 Units/L (34-104); Aspartate Amino Transferase 14 Units/L (13-39); BUN/Creatinine Ratio 17 (6-26); Bilirubin,Total 0.5 mg/dL (0.3-1.0); Blood Urea Nitrogen 20 mg/dL (6-20); Calcium 9.6 mg/dL (8.6-10.3); Carbon Dioxide 28 mEq/L (23-29); Chloride 103 mEq/L (98-107); Globulin 2.8 g/dL (2.4-3.5); Glucose 197 mg/dL (70-105); Osmolality,Calculated 290 (280-300); Potassium 4.9 mEq/L (3.5-5.1); Sodium 136 mEq/L (136-145); Total Protein 6.9 g/dL (6.4-8.9); eGFR For Non-African Americans > 60 (> 60)
[2018-08-31] MEDS: *HR* Metformin 500 MG TABLET PO SCH ×2 (08:27→17:02)
[2018-08-31] MEDS: RisperiDAL 3 MG TABLET PO SCH (08:28)
[2018-08-31] MEDS: Insulin DETEMIR 100 UNIT/ML X5UNITS SQ SCH (08:28)
[2018-08-31] MEDS: Lisinopril 20 MG TABLET PO SCH (08:28)
[2018-08-31] MEDS: *HR* Glimepiride 2 MG TABLET PO SCH (08:28)
[2018-08-31] MEDS: Aspirin Enteric Coated 81 MG Tablet PO SCH (08:28)
[2018-08-31] MEDS: Famotidine 20 MG TABLET PO SCH ×2 (08:28→17:02)
[2018-08-31] MEDS: Lactulose Oral Soln 20 GM/30 ML UDC PO SCH ×3 (09:08→20:20)
--- NOTE | 2018-08-31 11:06 | Psychiatry Progress Note ---
Date of Encounter: 08/31/18 Time of Encounter: 11:04 Subjective Interval history: Patient seen for follow-up. Case discussed with nursing staff. Progress notes and consultations were reviewed. Patient is currently on Clozaril 125 mg and risperidone 3 mg daily. He is tolerating medication, no major side effects, followed up by internal medicine. He reports improved sleep, no psychosis. He denied any thoughts of suicide. He is compliant with medication. Review of Systems Psychiatric: Reports: depression, abnormal sleep pattern, auditory hallucinations Results - Vital Signs Vital Signs: Temp Pulse Resp BP Pulse Ox 97.8 F 109 18 139/74 96 08/31/18 09:00 08/31/18 09:00 08/31/18 09:00 08/31/18 09:00 08/31/18 09:00 - Labs Labs: Laboratory Results - last 24 hr 08/30/18 08/30/18 08/30/18 16:06 16:10 20:09 WBC RBC Hgb Hct MCV MCH MCHC RDW Plt Count MPV Immature Gran % Seg Neutrophils % Lymphocytes % Monocytes % Eosinophils % Basophils % Neutrophils # Lymphocytes # Monocytes # Eosinophils # Basophils # Sodium Potassium Chloride Carbon Dioxide BUN Creatinine Est GFR ( Amer) Est GFR (Non-Af Amer) BUN/Creatinine Ratio Glucose POC Glucose 281 H Calculated Osmolality Lactic Acid 2.1 2.1 Calcium Total Bilirubin AST ALT Alkaline Phosphatase Serum Total Protein Albumin Globulin Albumin/Globulin Ratio 08/30/18 08/31/18 08/31/18 21:14 07:34 07:34 WBC 9.4 RBC 4.38 Hgb 13.6 Hct 40.6 MCV 92.7 MCH 31.1 MCHC 33.5 RDW 12.5 Plt Count 205 MPV 10.2 Immature Gran % 0.3 Seg Neutrophils % 57.8 Lymphocytes % 33.6 Monocytes % 5.4 Eosinophils % 2.6 Basophils % 0.3 Neutrophils # 5.4 Lymphocytes # 3.2 Monocytes # 0.5 Eosinophils # 0.2 Basophils # 0.0 Sodium 136 Potassium 4.9 Chloride 103 Carbon Dioxide 28 BUN 20 Creatinine 1.18 Est GFR ( Amer) > 60 Est GFR (Non-Af Amer) > 60 BUN/Creatinine Ratio 17 Glucose 197 H POC Glucose 176 H Calculated Osmolality 290 Lactic Acid Calcium 9.6 Total Bilirubin 0.5 AST 14 ALT 20 Alkaline Phosphatase 52 Serum Total Protein 6.9 Albumin 4.1 Globulin 2.8 Albumin/Globulin Ratio 1.5 08/31/18 07:35 WBC RBC Hgb Hct MCV MCH MCHC RDW Plt Count MPV Immature Gran % Seg Neutrophils % Lymphocytes % Monocytes % Eosinophils % Basophils % Neutrophils # Lymphocytes # Monocytes # Eosinophils # Basophils # Sodium Potassium Chloride Carbon Dioxide BUN Creatinine Est GFR ( Amer) Est GFR (Non-Af Amer) BUN/Creatinine Ratio Glucose POC Glucose 166 H Calculated Osmolality Lactic Acid Calcium Total Bilirubin AST ALT Alkaline Phosphatase Serum Total Protein Albumin Globulin Albumin/Globulin Ratio - Impressions ITS Impressions KUB X-Ray 08/30/18 14:58 IMPRESSION: No evidence of obstruction. Large amount stool throughout the colon suggesting constipation. D/ / Anselmo Lopez MD / Anselmo Lopez MD Interpreting Provider: Anselmo Lopez MD Assessment and Plan (1) Schizophrenia Current visit: Yes Status: Acute Plan: Continue hospitalization, Close observation, Suicide Precautions per unit protocol, Encourage participation in unit milieu, Group Therapy, Monitor sleep, Monitor appetite Risks, benefits, side effects, alternatives discussed w/pt: Yes Patient agreeable to treatment: Yes Qualifiers: Schizophrenia type: undifferentiated schizophrenia Qualified Code(s): F20.3 - Undifferentiated schizophrenia Consult Discharge Plan - Plan Referrals: [facility] [Outside] - 09/04/18 1:20 pm (The above appointment is with Dr. Chatman and Dr. Nye for outpatient psychiatric assessment and medication management services.) [facility] [Outside] - 09/09/18 11:00 am (The above appointment is with Arianna Jamil for outpatient case management services.) Psychiatry Exam - Constitutional Vitals: Temp Pulse Resp BP Pulse Ox 97.8 F 109 18 139/74 96 08/31/18 09:00 08/31/18 09:00 08/31/18 09:00 08/31/18 09:00 08/31/18 09:00 General appearance: age & developmentally appropriate, well-nourished, unkempt, obese - Musculoskeletal Gait: normal Station: relaxed Strength & Tone: normal for patient - Psychiatric Patient Orientation: Yes Person, Yes Time, Yes Place Level of alertness: Alert Behavior: calm, cooperative Psychomotor activity: Normal Eye Contact: Maintains Eye Contact Mood Description: Euthymic/stable Affect description: congruent with mood, full range Speech Volume: Normal Speech pattern: normal rate, normal rhythm, normal tone, fluent, spontaneous Language & Vocabulary: consistent with education Thought Process: Linear, Goal Oriented Thought Content: No Suicidal ideation, No Homicidal ideation, No Overt delusions Perceptual Disturbances: No Auditory hallucinations, No Visual hallucinations Attention Span Ability: Capable of Focused Attention Memory Description: Grossly Intact Patient Reliability: Reliable Historian Fund of knowledge: Yes abstraction ability, Yes aware of current events Intelligence Estimate: Average Judgment: Limited Insight: Partial
[2018-08-31 12:44] LABS: Thyroid Stimulating Hormone 2.684 mcIU/mL (0.340-5.600)
[2018-08-31] MEDS: Metoprolol XL (24 HR) Succ 25 MG TAB.ER.24H PO SCH (13:08)
[2018-08-31] MEDS: cloZAPine 25 MG TABLET PO SCH (20:18)
[2018-08-31] MEDS ORDERED: cloZAPine 25 MG TABLET PO ONE (21:00)
--- NOTE | 2018-09-01 07:45 | Internal Med Progress Note ---
Hospitalist Progress Note - Encounter Date of Encounter: 09/01/18 Time of Encounter: 07:45 - Exam Vitals: Temp Pulse Resp BP Pulse Ox 97.1 F L 102 18 104/70 96 08/31/18 21:00 08/31/18 21:00 08/31/18 21:00 08/31/18 21:00 08/31/18 09:00 Exam: Constitutional: Vitals as noted. Conversant. No Apparent Distress. Obese. No obvious deformities. HEENT exam: Atraumatic, Normocephaly. PEARLA. Grossly normal hearing. Oropharyngeal exam unremarkable. Moist mucus membranes. poor dental hygiene. No JVD, carotid bruie, no cervical lymphadenopathy. Respiratory exam: Clear to auscultation bilaterally. No accessory muscle use, rales, rhonchi or wheezes Cardiovascular exam: RRR, +S1, +S2. no murmur, gallop, rubs. No chest wall tenderness GI/Abdominal exam: minimal tenderness on LLQ, Non-distended, normal bowel sounds , soft, no peritoneal signs. no orgenomegaly or mass appreciated. no hernia. Musculoskeletal exam: full ROM, no edema or cyanosis, warm, pulses palpable and symmetrical in UE/LE. no calf tenderness. Neurological exam: CN II-XII intact, AO X3, no focal deficits. no pronater drift , facial droop, speech deficit Skin exam: No skin rash, ulcer, purpura or ecchymosis. Pysc: AOx3, congruent mood, - Assessment and Plan (1) Tachycardia Current Visit: Yes Status: Acute Assessment and Plan: Possibly clozapine side effect as patient was recently started on clozapine Obtain TSH, repeat EKG. Last EKG on 08/19 was sinus rhythm Encourage oral hydration. Resume metoprolol Signed off. Call back with any further questions (2) Abdominal discomfort Current Visit: Yes Status: Acute Assessment and Plan: Patient with the week abdominal discomfort and some symptoms suggestive of GERD - Unlikely patient currently has colitis given history and physical - We will obtain CBC, CMP, lactic acid and upright abdominal x-ray to rule out any obstruction. Abdominal xray showed constipation. Patient having regular bowel movements Continue laxatives/ stool softeners PRN (3) Hypertension Current Visit: No Status: Chronic Assessment and Plan: Will resume metoprolol - Tachycardiac could be side effects from multiple psychiatric medication including clozapine, benztropine, diphenhydramine - We will continue to monitor (4) Schizophrenia Current Visit: Yes Status: Acute Assessment and Plan: - Management as per psych (5) Diabetes mellitus Current Visit: No Status: Chronic Assessment and Plan: - On Levemir 25 subcutaneous daily. Glimepiride and metformin daily - Continue Accu-Cheks . Currently reasonably controlled. Continue to monitor - Time Spent with Patient Total time spent is greater than 50% in coordination of care (as documented) at patient's floor/unit and/or counseling patient: Internal Medicine: Result - Labs CBC & Chem 7: 08/31/18 07:34 08/31/18 07:34 Labs: Short CBC 08/31/18 Range/Units 07:34 WBC 9.4 (4.3-11.1) K/mcL Hgb 13.6 (12.9-16.9) g/dL Hct 40.6 (37.5-50.1) % Plt Count 205 (140-400) K/mcL Neutrophils # 5.4 (1.6-8.9) K/mcL BMP 08/31/18 07:34 Sodium 136 Potassium 4.9 Chloride 103 Carbon Dioxide 28 BUN 20 Creatinine 1.18 Glucose 197 H Calcium 9.6 Liver Function 08/31/18 Range/Units 07:34 Total Bilirubin 0.5 (0.3-1.0) mg/dL AST 14 (13-39) Units/L ALT 20 (7-52) Units/L Alkaline Phosphatase 52 (34-104) Units/L Albumin 4.1 (3.5-5.7) g/dL - VTE Reasons for not Prescribing Prophylaxis: Treatment not Indicated - Low risk for VTE Consult Discharge Plan - Plan Referrals: [facility] [Outside] - 09/04/18 1:20 pm (The above appointment is with Dr. Chatman and Dr. Nye for outpatient psychiatric assessment and medication management services.) [facility] [Outside] - 09/09/18 11:00 am (The above appointment is with Arianna Jamil for outpatient case management services.) (3) Hypertension Qualifiers: Hypertension type: essential hypertension Qualified Code(s): I10 - Essential (primary) hypertension (4) Schizophrenia Qualifiers: Schizophrenia type: undifferentiated schizophrenia Qualified Code(s): F20.3 - Undifferentiated schizophrenia (5) Diabetes mellitus Qualifiers: Diabetes mellitus type: type 2 Diabetes mellitus detention insulin use: with detention use Diabetes mellitus complication status: without complication Qualified Code(s): E11.9 - Type 2 diabetes mellitus without complications; Z79.4 - buttermaker (current) use of insulin
[2018-09-01] MEDS: Lactulose Oral Soln 20 GM/30 ML UDC PO SCH ×3 (08:19→20:25)
[2018-09-01] MEDS: Aspirin Enteric Coated 81 MG Tablet PO SCH (08:20)
[2018-09-01] MEDS: *HR* Glimepiride 2 MG TABLET PO SCH (08:20)
[2018-09-01] MEDS: RisperiDAL 3 MG TABLET PO SCH (08:20)
[2018-09-01] MEDS: Lisinopril 20 MG TABLET PO SCH (08:20)
[2018-09-01] MEDS: *HR* Metformin 500 MG TABLET PO SCH ×2 (08:20→16:07)
[2018-09-01] MEDS: Metoprolol XL (24 HR) Succ 25 MG TAB.ER.24H PO SCH (08:20)
[2018-09-01] MEDS: Famotidine 20 MG TABLET PO SCH ×2 (08:20→16:04)
[2018-09-01] MEDS: Ammonium Lactate 30 APPL/225 GM BOTTLE TP SCH ×2 (08:58→22:17)
[2018-09-01] MEDS: Insulin DETEMIR 100 UNIT/ML X5UNITS SQ SCH (09:08)
[2018-09-01] MEDS: Ibuprofen 400 MG TABLET PO PRN (13:09)
--- NOTE | 2018-09-01 13:18 | Psychiatry Progress Note ---
Date of Encounter: 09/01/18 Time of Encounter: 13:00 Subjective Interval history: Patient seen for follow-up. Case discussed was nursing staff. Staff report patient is doing well, denies any problem with sleep, denies any auditory or visual hallucinations. He is tolerating medication without any side effects, he tells me that he lost weight and is pleased with the new medication. Medication compliant and cooperative. Review of Systems Psychiatric: Reports: depression, abnormal sleep pattern, auditory hallucinations Results - Vital Signs Vital Signs: Temp Pulse Resp BP Pulse Ox 98.2 F 105 18 134/86 98 09/01/18 08:40 09/01/18 08:40 09/01/18 08:40 09/01/18 08:40 09/01/18 08:40 - Labs Labs: Laboratory Results - last 24 hr 08/31/18 09/01/18 17:08 08:18 POC Glucose 253 H 192 H - Impressions ITS Impressions KUB X-Ray 08/30/18 14:58 IMPRESSION: No evidence of obstruction. Large amount stool throughout the colon suggesting constipation. D/ / Anselmo Lopez MD / Anselmo Lopez MD Interpreting Provider: Anselmo Lopez MD Assessment and Plan (1) Schizophrenia Current visit: Yes Status: Acute Plan: Continue hospitalization, Close observation, Suicide Precautions per unit protocol, Encourage participation in unit milieu, Group Therapy, Monitor sleep, Monitor appetite Risks, benefits, side effects, alternatives discussed w/pt: Yes Patient agreeable to treatment: Yes Qualifiers: Schizophrenia type: undifferentiated schizophrenia Qualified Code(s): F20.3 - Undifferentiated schizophrenia Consult Discharge Plan - Plan Referrals: [facility] [Outside] - 09/04/18 1:20 pm (The above appointment is with Dr. Chatman and Dr. Nye for outpatient psychiatric assessment and medication management services.) [facility] [Outside] - 09/09/18 11:00 am (The above appointment is with Arianna Jamil for outpatient case management services.) Psychiatry Exam - Constitutional Vitals: Temp Pulse Resp BP Pulse Ox 98.2 F 105 18 134/86 98 09/01/18 08:40 09/01/18 08:40 09/01/18 08:40 09/01/18 08:40 09/01/18 08:40 General appearance: age & developmentally appropriate, well-groomed, well- nourished, obese - Musculoskeletal Gait: normal Station: relaxed Strength & Tone: normal for patient - Psychiatric Patient Orientation: Yes Person, Yes Time, Yes Place Level of alertness: Alert Behavior: calm, cooperative Psychomotor activity: Normal Eye Contact: Maintains Eye Contact Mood Description: Euthymic/stable Affect description: congruent with mood, full range Speech Volume: Normal Speech pattern: normal rate, normal rhythm, normal tone, fluent, spontaneous Language & Vocabulary: consistent with education Thought Process: Linear, Goal Oriented Thought Content: No Suicidal ideation, No Homicidal ideation, No Overt delusions Perceptual Disturbances: No Auditory hallucinations, No Visual hallucinations Attention Span Ability: Capable of Focused Attention Memory Description: Grossly Intact Patient Reliability: Reliable Historian Fund of knowledge: Yes abstraction ability, Yes aware of current events Intelligence Estimate: Average Judgment: Limited Insight: Partial
[2018-09-01] MEDS: cloZAPine 25 MG TABLET PO SCH (20:23)
[2018-09-01] MEDS ORDERED: cloZAPine 100 MG TABLET PO SCH (21:00)
[2018-09-02] MEDS: Lactulose Oral Soln 20 GM/30 ML UDC PO SCH ×3 (09:12→20:40)
[2018-09-02] MEDS: RisperiDAL 3 MG TABLET PO SCH (09:13)
[2018-09-02] MEDS: *HR* Glimepiride 2 MG TABLET PO SCH (09:13)
[2018-09-02] MEDS: Famotidine 20 MG TABLET PO SCH ×2 (09:13→15:15)
[2018-09-02] MEDS: Lisinopril 20 MG TABLET PO SCH (09:13)
[2018-09-02] MEDS: Aspirin Enteric Coated 81 MG Tablet PO SCH (09:13)
[2018-09-02] MEDS: *HR* Metformin 500 MG TABLET PO SCH ×2 (09:13→16:59)
[2018-09-02] MEDS: Metoprolol XL (24 HR) Succ 25 MG TAB.ER.24H PO SCH (09:14)
[2018-09-02] MEDS: Insulin DETEMIR 100 UNIT/ML X5UNITS SQ SCH (09:15)
[2018-09-02] MEDS: Ammonium Lactate 30 APPL/225 GM BOTTLE TP SCH ×2 (09:27→20:44)
[2018-09-02 14:18] LABS: Basophils % 0.3 %; Eosinophils # 0.2 K/mcL (0.0-0.6); Eosinophils % 1.8 %; Hematocrit 41.8 % (37.5-50.1); Hemoglobin 13.5 g/dL (12.9-16.9); Immature Granulocytes % 0.5 % (0-4); Lymphocytes % 16.2 %; Mean Corpuscular HGB Conc 32.3 g/dL (31.6-35.5); Mean Corpuscular Hemoglobin 30.2 pg (28.0-33.3); Mean Corpuscular Volume 93.5 fL (83.0-100.0); Mean Platelet Volume 10.5 fL (9.4-12.4); Monocytes # 0.5 K/mcL (0.0-1.3); Monocytes % 4.2 %; Neutrophils # 9.6 K/mcL (1.6-8.9); Platelet Count 219 K/mcL (140-400); Red Blood Count 4.47 M/mcL (4.19-5.50); Red Cell Distribution Width 12.7 % (11.5-14.5)
--- NOTE | 2018-09-02 15:38 | Psychiatry Progress Note ---
Date of Encounter: 09/02/18 Time of Encounter: 15:36 Subjective Interval history: Patient seen for follow-up. Case discussed was treatment team. Patient denies any problem with sleep or appetite. She is tolerating medication without any side effects. His discharge plans are completed and plan for tomorrow. Patient is looking forward to discharge. Review of Systems Psychiatric: Reports: depression, abnormal sleep pattern, auditory hallucinations Results - Vital Signs Vital Signs: Temp Pulse Resp BP Pulse Ox 97.2 F L 111 18 107/69 97 09/02/18 09:00 09/02/18 09:00 09/02/18 09:00 09/02/18 09:00 09/02/18 09:00 - Labs Labs: Laboratory Results - last 24 hr 09/01/18 09/02/18 09/02/18 19:32 07:41 11:51 WBC RBC Hgb Hct MCV MCH MCHC RDW Plt Count MPV Immature Gran % Seg Neutrophils % Lymphocytes % Monocytes % Eosinophils % Basophils % Neutrophils # Lymphocytes # Monocytes # Eosinophils # Basophils # POC Glucose 286 H 180 H 300 H 09/02/18 13:53 WBC 12.5 H RBC 4.47 Hgb 13.5 Hct 41.8 MCV 93.5 MCH 30.2 MCHC 32.3 RDW 12.7 Plt Count 219 MPV 10.5 Immature Gran % 0.5 Seg Neutrophils % 77.0 Lymphocytes % 16.2 Monocytes % 4.2 Eosinophils % 1.8 Basophils % 0.3 Neutrophils # 9.6 H Lymphocytes # 2.0 Monocytes # 0.5 Eosinophils # 0.2 Basophils # 0.0 POC Glucose - Impressions ITS Impressions KUB X-Ray 08/30/18 14:58 IMPRESSION: No evidence of obstruction. Large amount stool throughout the colon suggesting constipation. D/ / Anselmo Lopez MD / Anselmo Lopez MD Interpreting Provider: Anselmo Lopez MD Assessment and Plan (1) Schizophrenia Current visit: Yes Status: Acute Plan: Continue hospitalization, Close observation, Suicide Precautions per unit protocol, Encourage participation in unit milieu, Group Therapy, Monitor sleep, Monitor appetite Risks, benefits, side effects, alternatives discussed w/pt: Yes Patient agreeable to treatment: Yes Qualifiers: Schizophrenia type: undifferentiated schizophrenia Qualified Code(s): F20.3 - Undifferentiated schizophrenia Consult Discharge Plan - Plan Referrals: [facility] [Outside] - 09/04/18 1:20 pm (The above appointment is with Dr. Chatman and Dr. Nye for outpatient psychiatric assessment and medication management services.) [facility] [Outside] - 09/09/18 11:00 am (The above appointment is with Arianna Jamil for outpatient case management services.) Psychiatry Exam - Constitutional Vitals: Temp Pulse Resp BP Pulse Ox 97.2 F L 111 18 107/69 97 09/02/18 09:00 09/02/18 09:00 09/02/18 09:00 09/02/18 09:00 09/02/18 09:00 General appearance: age & developmentally appropriate, well-nourished, unkempt, obese - Musculoskeletal Gait: normal Station: relaxed Strength & Tone: normal for patient - Psychiatric Patient Orientation: Yes Person, Yes Time, Yes Place Level of alertness: Alert Behavior: calm, cooperative Psychomotor activity: Normal Eye Contact: Maintains Eye Contact Mood Description: Euthymic/stable Affect description: congruent with mood, full range Speech Volume: Normal Speech pattern: normal rate, normal rhythm, normal tone, fluent, spontaneous Language & Vocabulary: consistent with education Thought Process: Linear, Goal Oriented Thought Content: No Suicidal ideation, No Homicidal ideation, No Overt delusions Perceptual Disturbances: No Auditory hallucinations, No Visual hallucinations Attention Span Ability: Capable of Focused Attention Memory Description: Grossly Intact Patient Reliability: Reliable Historian Fund of knowledge: Yes abstraction ability, Yes aware of current events Intelligence Estimate: Average Judgment: Limited Insight: Partial
[2018-09-02] MEDS: MOM Conc 10 ML UD.LIQ PO PRN (15:41)
[2018-09-02] MEDS: cloZAPine 25 MG TABLET PO SCH (20:05)
[2018-09-03] MEDS: Lisinopril 20 MG TABLET PO SCH (08:47)
[2018-09-03] MEDS: Famotidine 20 MG TABLET PO SCH (08:47)
[2018-09-03 08:48] VITALS: BP 110/73
[2018-09-03] MEDS: *HR* Metformin 500 MG TABLET PO SCH (08:48)
[2018-09-03] MEDS: Aspirin Enteric Coated 81 MG Tablet PO SCH (08:48)
[2018-09-03] MEDS: Metoprolol XL (24 HR) Succ 25 MG TAB.ER.24H PO SCH (08:48)
[2018-09-03] MEDS: *HR* Glimepiride 2 MG TABLET PO SCH (08:48)
[2018-09-03] MEDS: RisperiDAL 3 MG TABLET PO SCH (08:49)
[2018-09-03] MEDS: Ammonium Lactate 30 APPL/225 GM BOTTLE TP SCH (08:49)
[2018-09-03] MEDS: Lactulose Oral Soln 20 GM/30 ML UDC PO SCH ×2 (08:50→15:00)
[2018-09-03] MEDS: Insulin DETEMIR 100 UNIT/ML X5UNITS SQ SCH (08:56)
--- NOTE | 2018-09-03 12:06 | Discharge Summary ---
Date of Encounter: 09/03/18 Time of Encounter: 12:01 Diagnosis - Discharge Diagnosis (1) Schizophrenia Status: Acute Qualifiers: Schizophrenia type: undifferentiated schizophrenia Qualified Code(s): F20.3 - Undifferentiated schizophrenia Medications - Discharge Medications Aspirin [Lo-Dose Aspirin EC] 81 mg PO DAILY 08/18/18 [History] Atorvastatin [Lipitor] 40 mg PO HS 08/18/18 [History] Divalproex Sodium [Depakote] 500 mg PO TID 08/18/18 [History] Escitalopram [Lexapro] 20 mg PO DAILY 08/18/18 [History] Glimepiride [Amaryl] 2 mg PO DAILY 08/18/18 [History] Insulin Glargine [Lantus] 25 unit DAILY 08/18/18 [History] Lisinopril [Zestril] 20 mg PO DAILY 08/18/18 [History] Metformin HCl [Glucophage] 1,000 mg PO BID 08/18/18 [History] Metoprolol Succinate [Toprol Xl] 25 mg PO DAILY 08/18/18 [History] Quetiapine Fumarate [Quetiapine Fumarate ER] 50 mg PO HS 08/18/18 [History] Ranitidine HCl [Acid Lockstitch Sleeve Maker] 150 mg PO BID 08/18/18 [History] risperiDONE [RisperDAL] 3 mg PO DAILY 08/18/18 [History] cloZAPine [Clozaril] 125 mg PO HS tablet 09/03/18 [Rx] 3 Allergy/AdvReac Type Severity Reaction Status Date / Time No Known Allergies Allergy Verified 08/13/18 13:03 Results Procedures and tests throughout hospitalization: Completed Lab Orders Category Date Time Status CBC [Complete Blood Count] [HEME] Routine Lab 08/22/18 14:25 Completed CBC [Complete Blood Count] [HEME] Routine Lab 08/28/18 09:51 Completed CBC [Complete Blood Count] [HEME] Routine Lab 09/02/18 13:53 Completed CMP [Comprehensive Metabolic Panel] AM 0400 Lab 08/31/18 07:34 Completed Complete Blood Count [HEME] AM 0400 Lab 08/31/18 07:34 Completed Hgb A1C Routine Lab 08/28/18 09:51 Completed Lactic Acid Routine Lab 08/30/18 16:06 Completed Lactic Acid Stat Lab 08/30/18 20:09 Completed Thyroid Stimulating Hormone Routine Lab 08/31/18 07:34 Completed Completed Imaging Orders Category Date Time Status XR KUB [XR] Routine Exams 08/30/18 14:58 Completed Provider Date of admission: 08/19/18 12:58 Primary care physician: PCP NONE Consults: 08/30/18 13:08 Consult to Hospitalist [CONS] Routine Consulting Provider: Roni Conde Reason for Consult: Distended abdomen, tenderness on exam, has h/o colitis Time Notified: 13:09 Call Completed: Yes Discharging clinician: Keenan Pedroza Psychiatry Exam - Constitutional Vitals: Temp Pulse Resp BP Pulse Ox 97.7 F 117 18 110/73 99 09/03/18 08:47 09/03/18 08:47 09/03/18 08:47 09/03/18 08:47 09/03/18 08:47 General appearance: age & developmentally appropriate, well-nourished, unkempt, obese - Musculoskeletal Gait: normal Station: relaxed Strength & Tone: normal for patient - Psychiatric Patient Orientation: Yes Person, Yes Time, Yes Place Level of alertness: Alert Behavior: calm, cooperative Psychomotor activity: Normal Eye Contact: Maintains Eye Contact Mood Description: Euthymic/stable Affect description: congruent with mood, full range Speech Volume: Normal Speech pattern: normal rate, normal rhythm, normal tone, fluent, spontaneous Language & Vocabulary: consistent with education Thought Process: Linear, Goal Oriented Thought Content: No Suicidal ideation, No Homicidal ideation, No Overt delusions Perceptual Disturbances: No Auditory hallucinations, No Visual hallucinations Attention Span Ability: Capable of Focused Attention Memory Description: Grossly Intact Patient Reliability: Reliable Historian Fund of knowledge: Yes abstraction ability, Yes aware of current events Intelligence Estimate: Average Judgment: Limited Insight: Partial Hospital Course Hospital course: Mr. Hough is a 57 year old male with a long history of schizophrenia admitted for decompensation after stopping his medication Clozaril for several months. For details admission please see H&P On the unit the patient was started on Clozaril dose was increased gradually up to 125 mg daily, patient tolerated the medication and denied any side effects and reported improved sleep, denied any auditory or visual hallucinations. Otherwise patient medical issues with were addressed by medical consultation including medication adjustment for diabetes and blood pressure. Patient participated in groups and had no behavioral issues or problems. Discharge planning by family welfare social work professor was complete for [facility]. On discharge patient was medically stable denied any symptoms of psychosis and improving on new medication. He is discharged in stable condition. - Time Spent with Patient Total time spent providing and/or coordinating discharge services: Less than 30 minutes Assessment and Plan - Patient/Caregiver Discharge Instructions Activity: resume usual activities as tolerated Diet: regular diet - Follow up Plan Follow up with: [facility] [Outside] - 09/04/18 1:20 pm (The above appointment is with Dr. Chatman and Dr. Nye for outpatient psychiatric assessment and medication management services.) [facility] [Outside] - 09/09/18 11:00 am (The above appointment is with Arianna Jamil for outpatient case management services.) Functional capacity at discharge: independent ambulation Overall status at discharge: Stable Disposition: Home, Self-Care Quality - Multiple Antipsychotics Patient discharged on 2 or more antipsychotic medications: Yes (Failed monotherapy) - Justification Documentation of: History 3 failed trials of monotherapy Procedures - Procedures Procedures: Medication Management, Crisis Stabilization, Supportive Therapy, Group Therapy, Psychoeducational Therapy
== END 2018-09-03 15:25 | disposition home or self-care (01) | DRG 885 ==
LOC: 1ANU 18:06 → EMEROOARM 18:06 → 1ANU 22:19 → SUATTDRO 08-19 12:58
PROVIDERS: ADMIT Psychiatry & Neurology Psychiatry; ATTEND Psychiatry & Neurology Psychiatry

== ENCOUNTER 2018-09-06 09:03 | Observation (INO) ==
[2018-09-06] MEDS ORDERED: 0.9 % Sodium Chloride 1,000 ML IVC ONE ×2 (09:10→10:24)
--- NOTE | 2018-09-06 09:11 | Emergency Department Note ---
Disposition Clinical Impression: Diabetes mellitus with hyperosmolarity without hyperglycemic hyperosmolar nonketotic coma Disposition: Admitted As Inpatient Condition: Fair Time of Disposition: 11:11 General Adult HPI - General Chief complaint: ED General Medical Stated complaint: High Glucose 539 Time Seen by Provider: 09/06/18 09:06 Nursing Notes Reviewed: Yes Vital Signs Reviewed: Yes - History of Present Illness HPI Narrative: 57 year old man with history of IDDM, bipolar, schizophrenia comes to the ED from a [facility] house due to hyperglycemia. His blood sugar this morning at the home was 531. He says he takes oral diabetic medications, and uses insulin daily. He said that he manages his medical conditions and medications himself, but has no insight into medication names or medical conditions he has. He describes some dizzyness this morning when getting up from bed and some hip pain attributable to arthritis. Denies nausea, vomiting, diarrhea, fever, abdominal pain, chest pain, SOB, headache, blurred vision. States his mentation seems at his baseline. Denies tobacco, alcohol, recreational drugs. The history, physical exam, and medical decision making was performed by the medical student either while I was physically present and actively involved or I personally re-performed the exam and medical decision making. I have verified the accuracy of the medical student's documentation with regards to the history, physical exam findings, and medical decision making. Patient history of type 2 diabetes mellitus. Only taking insulin. Only complaining about bilateral hip pain at this time. Says it is his normal arthritis. Pain Scale: 0 - Related Data Home Medications Medication Instructions Recorded Confirmed Aspirin [Lo-Dose Aspirin EC] 81 mg PO DAILY 08/18/18 09/06/18 Atorvastatin [Lipitor] 40 mg PO HS 08/18/18 09/06/18 Divalproex Sodium [Depakote] 500 mg PO TID 08/18/18 09/06/18 Escitalopram [Lexapro] 20 mg PO DAILY 08/18/18 09/06/18 Glimepiride [Amaryl] 2 mg PO DAILY 08/18/18 09/06/18 Insulin Glargine [Lantus] 25 unit SQ DAILY 08/18/18 09/06/18 Lisinopril [Zestril] 20 mg PO DAILY 08/18/18 09/06/18 Metformin HCl [Glucophage] 1,000 mg PO BID 08/18/18 09/06/18 Metoprolol Succinate [Toprol Xl] 25 mg PO DAILY 08/18/18 09/06/18 Quetiapine Fumarate [Quetiapine 50 mg PO HS 08/18/18 09/06/18 Fumarate ER] Ranitidine HCl [Acid Pace Analyst] 150 mg PO BID 08/18/18 09/06/18 risperiDONE [RisperDAL] 3 mg PO DAILY 08/18/18 09/06/18 Previous Rx's Medication Instructions Recorded cloZAPine [Clozaril] 125 mg PO HS tablet 09/03/18 Allergies Allergy/AdvReac Type Severity Reaction Status Date / Time No Known Allergies Allergy Verified 08/13/18 13:03 Past Medical History - Past Medical History Medical history: Reports: diabetes, hyperlipidemia, hypertension Surgical history: Reports: cholecystectomy, other Psychiatric history: Reports: bipolar, schizophrenia - Social History Smoking Status: Never smoker Smokeless Tobacco Status: No Alcohol use: Reports: none Drug use: Reports: none Physical Exam - General Limitations: no limitations General appearance: alert, in no apparent distress - Head Head exam: normocephalic - Eye Eye exam: Present: EOMI. Absent: scleral icterus - ENT ENT exam: mucous membranes moist - Neck Neck exam: Present: trachea midline - Chest Chest inspection: Present: symmetric chest wall rise - Respiratory Respiratory exam: Present: normal lung sounds bilaterally. Absent: respiratory distress, accessory muscle use - Cardiovascular Cardiovascular exam: Present: normal rhythm, tachycardia - Abdominal Exam Abdominal exam: Present: soft, tenderness, distention (Mild). Absent: guarding, rebound, rigidity Abdominal tenderness: Present: LLQ, mild - Extremities Exam Extremities exam: Present: normal capillary refill - Back Exam Back exam: Present: full ROM - Neurological Exam Neurological exam: Present: alert, oriented X3, CN II-XII intact - Psychiatric Psychiatric exam: Present: normal affect, normal mood - Skin Skin exam: Present: warm, dry, intact, normal color. Absent: rash Course Vital Signs Temperature 97.7 F 09/06/18 09:05 Pulse Rate 115 09/06/18 09:05 Respiratory Rate 16 09/06/18 09:05 Blood Pressure 149/92 09/06/18 09:05 O2 Sat by Pulse Oximetry 99 09/06/18 09:05 Temperature 97.7 F 09/06/18 09:14 Pulse Rate 90 09/06/18 11:04 Respiratory Rate 16 09/06/18 11:04 Blood Pressure 144/76 09/06/18 11:04 O2 Sat by Pulse Oximetry 100 09/06/18 11:04 Oxygen Delivery Oxygen Delivery Room Air Medical Decision Making - MDM Narrative Medical decision making narrative: 57-year-old male presents emergency department with concern for hyperglycemia. Glucose was 696 here. Patient not acidotic, no anion gap, negative beta hydroxy butyric acid. Patient has HHS. Potassium 6.1 now. No Peaked T waves on the EKG. Patient will will be getting fluid here in the emergency department. We have administered 2 L. We are also administered 10 units of insulin. Obtain CT scan of abdomen and pelvis due to concern for abdominal distention. CT scan of the abdomen and pelvis reveals constipation, nonspecific perinephric inflammatory stranding, left has an atelectasis per radiology. Chest reveals no acute process per radiology. Patient's urinalysis does not reveal any evidence of infection, so perinephric inflammatory stranding. This likely and incidental finding. Patient afebrile here. There is concern that patient is having issues with compliance with his medication. This reported that he is taking insulin as well as metformin and glyburide. Patient only reports taking his on. It appears to be some aspect of developmental delay when speaking to the patient he also has other psychiatric conditions that can negatively impact this patient if he were to be discharged home. Patient admitted to the hospitalist agreed to accept for admission. Patient not in any acute distress at time of admission to the hospital. Chest X-Ray 09/06/18 09:09 IMPRESSION: No acute process. D/ / Smith Neville MD / Smith Neville MD Interpreting Provider: Smith Neville MD Abdomen/Pelvis CT 09/06/18 09:57 IMPRESSION: 1. Constipation. 2. Nonspecific perinephric inflammatory stranding. 3. Left basilar atelectasis. D/ / Merrill Wise MD / Merrill Wise MD Interpreting Provider: Merrill Wise MD Vital Signs Temperature 97.7 F 09/06/18 09:05 Pulse Rate 115 09/06/18 09:05 Respiratory Rate 16 09/06/18 09:05 Blood Pressure 149/92 09/06/18 09:05 O2 Sat by Pulse Oximetry 99 09/06/18 09:05 Temperature 97.7 F 09/06/18 09:14 Pulse Rate 90 09/06/18 11:04 Respiratory Rate 16 09/06/18 11:04 Blood Pressure 144/76 09/06/18 11:04 O2 Sat by Pulse Oximetry 100 09/06/18 11:04 Oxygen Delivery Oxygen Delivery Room Air - Lab Data Result diagrams: 09/06/18 09:30 09/06/18 09:30 Lab Results 09/06/18 09/06/18 09/06/18 Range/Units 09:16 09:17 09:30 WBC (4.3-11.1) K/mcL RBC (4.19-5.50) M/mcL Hgb (12.9-16.9) g/dL Hct (37.5-50.1) % MCV (83.0-100.0) fL MCH (28.0-33.3) pg MCHC (31.6-35.5) g/dL RDW (11.5-14.5) % Plt Count (140-400) K/mcL MPV (9.4-12.4) fL Immature Gran % (0-4) % Seg Neutrophils % % Lymphocytes % % Monocytes % % Eosinophils % % Basophils % % Neutrophils # (1.6-8.9) K/mcL Lymphocytes # (0.6-4.6) K/mcL Monocytes # (0.0-1.3) K/mcL Eosinophils # (0.0-0.6) K/mcL Basophils # (0.0-0.2) K/mcL VBG pH (7.32-7.42) pH Units VBG pCO2 (41-51) mmHg VBG pO2 (25-50) mmHg VBG HCO3 (21-27) mEq/L Sodium 128 L (136-145) mEq/L Potassium 6.1 H (3.5-5.1) mEq/L Chloride 95 L (98-107) mEq/L Carbon Dioxide 24 (23-29) mEq/L BUN 18 (6-20) mg/dL Creatinine 1.08 (0.70-1.30) mg/dL Est GFR ( Amer) > 60 (> 60) Est GFR (Non-Af Amer) > 60 (> 60) BUN/Creatinine Ratio 17 (6-26) Glucose 696 H* (70-105) mg/dL POC Glucose > 600 H* > 600 H* (70-99) mg/dL Calculated Osmolality 301 H (280-300) Calcium 9.2 (8.6-10.3) mg/dL Total Bilirubin 0.5 (0.3-1.0) mg/dL AST 14 (13-39) Units/L ALT 22 (7-52) Units/L Alkaline Phosphatase 68 (34-104) Units/L Troponin I < 0.03 (< 0.04) ng/mL Serum Total Protein 6.7 (6.4-8.9) g/dL Albumin 3.9 (3.5-5.7) g/dL Globulin 2.8 (2.4-3.5) g/dL Albumin/Globulin Ratio 1.4 (1.1-2.2) Lipase 55 (11-82) Units/L Beta-Hydroxybutyric Acd (0.02-0.27) mmol/L Urine Color (Yellow) Urine Clarity (Clear) Urine pH (5.0-8.0) pH Units Ur Specific Murdock (1.010-1.025) Urine Protein (Neg-Trace) mg/dL Urine Glucose (UA) (Normal) mg/dL Urine Ketones (Negative) mg/dL Urine Blood (Negative) Urine Nitrite (Negative) Urine Bilirubin (Negative) Urine Urobilinogen (Normal) mg/dL Ur Leukocyte Esterase (Negative) Ur Culture Indicated? (NO) 09/06/18 09/06/18 09/06/18 Range/Units 09:30 09:30 09:36 WBC 6.8 (4.3-11.1) K/mcL RBC 3.92 L (4.19-5.50) M/mcL Hgb 12.1 L (12.9-16.9) g/dL Hct 37.3 L (37.5-50.1) % MCV 95.2 (83.0-100.0) fL MCH 30.9 (28.0-33.3) pg MCHC 32.4 (31.6-35.5) g/dL RDW 12.6 (11.5-14.5) % Plt Count 195 (140-400) K/mcL MPV 10.7 (9.4-12.4) fL Immature Gran % 0.6 (0-4) % Seg Neutrophils % 68.3 % Lymphocytes % 22.1 % Monocytes % 5.9 % Eosinophils % 2.8 % Basophils % 0.3 % Neutrophils # 4.7 (1.6-8.9) K/mcL Lymphocytes # 1.5 (0.6-4.6) K/mcL Monocytes # 0.4 (0.0-1.3) K/mcL Eosinophils # 0.2 (0.0-0.6) K/mcL Basophils # 0.0 (0.0-0.2) K/mcL VBG pH (7.32-7.42) pH Units VBG pCO2 (41-51) mmHg VBG pO2 (25-50) mmHg VBG HCO3 (21-27) mEq/L Sodium (136-145) mEq/L Potassium (3.5-5.1) mEq/L Chloride (98-107) mEq/L Carbon Dioxide (23-29) mEq/L BUN (6-20) mg/dL Creatinine (0.70-1.30) mg/dL Est GFR ( Amer) (> 60) Est GFR (Non-Af Amer) (> 60) BUN/Creatinine Ratio (6-26) Glucose (70-105) mg/dL POC Glucose (70-99) mg/dL Calculated Osmolality (280-300) Calcium (8.6-10.3) mg/dL Total Bilirubin (0.3-1.0) mg/dL AST (13-39) Units/L ALT (7-52) Units/L Alkaline Phosphatase (34-104) Units/L Troponin I (< 0.04) ng/mL Serum Total Protein (6.4-8.9) g/dL Albumin (3.5-5.7) g/dL Globulin (2.4-3.5) g/dL Albumin/Globulin Ratio (1.1-2.2) Lipase (11-82) Units/L Beta-Hydroxybutyric Acd 0.27 (0.02-0.27) mmol/L Urine Color Yellow (Yellow) Urine Clarity Clear (Clear) Urine pH 6.0 (5.0-8.0) pH Units Ur Specific Murdock > 1.030 H (1.010-1.025) Urine Protein Negative (Neg-Trace) mg/dL Urine Glucose (UA) >=1000 H (Normal) mg/dL Urine Ketones Negative (Negative) mg/dL Urine Blood Negative (Negative) Urine Nitrite Negative (Negative) Urine Bilirubin Negative (Negative) Urine Urobilinogen Normal (Normal) mg/dL Ur Leukocyte Esterase Negative (Negative) Ur Culture Indicated? NO (NO) 09/06/18 Range/Units 09:42 WBC (4.3-11.1) K/mcL RBC (4.19-5.50) M/mcL Hgb (12.9-16.9) g/dL Hct (37.5-50.1) % MCV (83.0-100.0) fL MCH (28.0-33.3) pg MCHC (31.6-35.5) g/dL RDW (11.5-14.5) % Plt Count (140-400) K/mcL MPV (9.4-12.4) fL Immature Gran % (0-4) % Seg Neutrophils % % Lymphocytes % % Monocytes % % Eosinophils % % Basophils % % Neutrophils # (1.6-8.9) K/mcL Lymphocytes # (0.6-4.6) K/mcL Monocytes # (0.0-1.3) K/mcL Eosinophils # (0.0-0.6) K/mcL Basophils # (0.0-0.2) K/mcL VBG pH 7.28 L (7.32-7.42) pH Units VBG pCO2 53 H (41-51) mmHg VBG pO2 41 (25-50) mmHg VBG HCO3 25 (21-27) mEq/L Sodium (136-145) mEq/L Potassium (3.5-5.1) mEq/L Chloride (98-107) mEq/L Carbon Dioxide (23-29) mEq/L BUN (6-20) mg/dL Creatinine (0.70-1.30) mg/dL Est GFR ( Amer) (> 60) Est GFR (Non-Af Amer) (> 60) BUN/Creatinine Ratio (6-26) Glucose (70-105) mg/dL POC Glucose (70-99) mg/dL Calculated Osmolality (280-300) Calcium (8.6-10.3) mg/dL Total Bilirubin (0.3-1.0) mg/dL AST (13-39) Units/L ALT (7-52) Units/L Alkaline Phosphatase (34-104) Units/L Troponin I (< 0.04) ng/mL Serum Total Protein (6.4-8.9) g/dL Albumin (3.5-5.7) g/dL Globulin (2.4-3.5) g/dL Albumin/Globulin Ratio (1.1-2.2) Lipase (11-82) Units/L Beta-Hydroxybutyric Acd (0.02-0.27) mmol/L Urine Color (Yellow) Urine Clarity (Clear) Urine pH (5.0-8.0) pH Units Ur Specific Murdock (1.010-1.025) Urine Protein (Neg-Trace) mg/dL Urine Glucose (UA) (Normal) mg/dL Urine Ketones (Negative) mg/dL Urine Blood (Negative) Urine Nitrite (Negative) Urine Bilirubin (Negative) Urine Urobilinogen (Normal) mg/dL Ur Leukocyte Esterase (Negative) Ur Culture Indicated? (NO) - EKG Data EKG #1 EKG attestation: Yes I reviewed and interpreted this EKG. EKG results narrative: 9:22 Heart rate 109 bpm, HI interval 160 ms, QRS duration 97 ms, QT 370 ms, QTC 427 ms, normal axis. Sinus tachycardia with a ventricular rate of 109 beats for minute. No evidence of any ischemic ST changes on this EKG. Attestation Statement - Attestation Attestation: I, Lenin Almaraz, examined this patient and my medical decision-making was reviewed with the DELICATESSEN CLERK/PA/Advanced Practice Nurse/Resident Physician. I agree with the documented findings, disposition and treatment plan as described except to the extent set forth below. 57-year-old male presents emergency Department with concerns of nausea and elevated glucose. Patient states his blood sugars have been elevated over the past 2 days. Fingerstick glucose in the emergency department shows greater than 600. Patient denies recent fever, chills, vomiting, chest pain. He does report distention of his abdomen and diarrhea. On physical exam he had tenderness to palpation left lower quadrant. Denies dysuria, hematuria, hematochezia, melena. No history of colitis or diverticulitis in the past. Patient states he takes 30 units of Lantus every night however he is unsure if he is supposed be taking further diabetic medications. Upon review his chart he is supposed to be taking metformin and glimepiride. Laboratory evaluation shows glucose of 696, he is mildly acidotic on venous VBG. He does not have elevation of his beta hydroxybutyric acid. Patient likely has early HHS. He is poorly compliant with his medications. CT of the abdomen and pelvis is pending at this time to rule out colitis however patient will likely be admitted to the hospital for further care and evaluation.
[2018-09-06 09:53] LABS: VBG HCO3 25 mEq/L (21-27); VBG PCO2 53 mmHg (41-51); VBG PH 7.28 pH Units (7.32-7.42); VBG PO2 41 mmHg (25-50)
[2018-09-06 09:53] LABS: Bilirubin,Urine Negative (Negative); Blood,Urine Negative (Negative); Clarity,Urine Clear (Clear); Color,Urine Yellow (Yellow); Glucose,Urine (UA) >=1000 mg/dL (Normal); Ketones,Urine Negative (Negative); Leukocyte Esterase,Urine Negative (Negative); Nitrite,Urine Negative (Negative); Protein,Urine Negative (Neg-Trace); Specific Gravity,Urine > 1.030 (1.010-1.025); Urobilinogen,Urine Normal (Normal)
[2018-09-06] MEDS ORDERED: Isovue-370 500 ML INFUS..BTL IV ONE (09:57)
[2018-09-06 10:09] LABS: Troponin I < 0.03 ng/mL (< 0.04)
[2018-09-06 10:12] LABS: Alanine Aminotransferase 22 Units/L (7-52); Albumin 3.9 g/dL (3.5-5.7); Albumin/Globulin Ratio 1.4 (1.1-2.2); Alkaline Phosphatase 68 Units/L (34-104); Aspartate Amino Transferase 14 Units/L (13-39); BUN/Creatinine Ratio 17 (6-26); Bilirubin,Total 0.5 mg/dL (0.3-1.0); Blood Urea Nitrogen 18 mg/dL (6-20); Calcium 9.2 mg/dL (8.6-10.3); Carbon Dioxide 24 mEq/L (23-29); Chloride 95 mEq/L (98-107); Globulin 2.8 g/dL (2.4-3.5); Glucose 696 mg/dL (70-105); Lipase 55 Units/L (11-82); Osmolality,Calculated 301 (280-300); Potassium 6.1 mEq/L (3.5-5.1); Sodium 128 mEq/L (136-145); Total Protein 6.7 g/dL (6.4-8.9); eGFR For Non-African Americans > 60 (> 60)
[2018-09-06] MEDS ORDERED: Insulin Human Regular 10 UNIT in 0.9 % Sodium Chloride 10 ML IV ONE (10:21)
[2018-09-06 10:29] LABS: Basophils % 0.3 %; Eosinophils # 0.2 K/mcL (0.0-0.6); Eosinophils % 2.8 %; Hematocrit 37.3 % (37.5-50.1); Hemoglobin 12.1 g/dL (12.9-16.9); Immature Granulocytes % 0.6 % (0-4); Lymphocytes # 1.5 K/mcL (0.6-4.6); Lymphocytes % 22.1 %; Mean Corpuscular HGB Conc 32.4 g/dL (31.6-35.5); Mean Corpuscular Hemoglobin 30.9 pg (28.0-33.3); Mean Corpuscular Volume 95.2 fL (83.0-100.0); Mean Platelet Volume 10.7 fL (9.4-12.4); Monocytes # 0.4 K/mcL (0.0-1.3); Monocytes % 5.9 %; Neutrophils # 4.7 K/mcL (1.6-8.9); Platelet Count 195 K/mcL (140-400); Red Blood Count 3.92 M/mcL (4.19-5.50); Red Cell Distribution Width 12.6 % (11.5-14.5); Segmented Neutrophils % 68.3 %
[2018-09-06] MEDS ORDERED: Naloxone 0.4 MG/ML INJ IVP PRN (10:59)
[2018-09-06] MEDS ORDERED: D5% in Water 1,000 ML IVC PRN (11:01)
[2018-09-06] MEDS ORDERED: Dextrose Gel 15 GM/37.5 ML TUBE PO PRN ×2 (11:01)
[2018-09-06] MEDS ORDERED: *HR* Dextrose 50 % in Water (Syg) 50 ML SYRINGE IVP PRN (11:01)
--- NOTE | 2018-09-06 11:03 | Internal Med History&Physical ---
Date of Encounter: 09/06/18 Time of Encounter: 11:03 Internal Medicine - H&P: HPI Chief complaint: high blood sugar. Admitted From: Home Plans for Post Hospital Care: Home History of present illness: Mr. Hough is a 57 year old male PMH of T2DM, HLD, HTN, Bipolar disorder and schizophrenia. Patient presented to the ED reporting that when he got up today morning and checked his blood sugar it was high >400, for which he decided to come to the ED. He denies nausea, vomiting, generalized weakness but reports that when he got up he felt dizzy and lightheaded. Patient also denies fever/chills or pain with urination. Report that he thinks he is constipated, but denies abdominal pain, denies polyuria, polydipsia or polyphagia. Patient reports being compliant with his medications but he lacks insight about his chronic conditions. In the ED patient blood sugar found to be >600, and potassium 6.1 without EKG changes, Medicine team called for admission. Past Med Surg Social Fam HX - Past Medical History Medical history: diabetes, hyperlipidemia, hypertension Additional medical history: colitis Psychiatric history: bipolar, schizophrenia - Past Surgical History Surgical History: cholecystectomy, other Additional surgical history: colonoscopy - Social History Smoking Status: Never smoker Smokeless Tobacco Status: No Alcohol use: none Drug use: none Internal Medicine - H&P: Meds Aspirin [Lo-Dose Aspirin EC] 81 mg PO DAILY 08/18/18 [History] Atorvastatin [Lipitor] 40 mg PO HS 08/18/18 [History] Divalproex Sodium [Depakote] 500 mg PO TID 08/18/18 [History] Escitalopram [Lexapro] 20 mg PO DAILY 08/18/18 [History] Glimepiride [Amaryl] 2 mg PO DAILY 08/18/18 [History] Insulin Glargine [Lantus] 25 unit SQ DAILY 08/18/18 [History] Lisinopril [Zestril] 20 mg PO DAILY 08/18/18 [History] Metformin HCl [Glucophage] 1,000 mg PO BID 08/18/18 [History] Metoprolol Succinate [Toprol Xl] 25 mg PO DAILY 08/18/18 [History] Quetiapine Fumarate [Quetiapine Fumarate ER] 50 mg PO HS 08/18/18 [History] Ranitidine HCl [Acid Facility Technician] 150 mg PO BID 08/18/18 [History] risperiDONE [RisperDAL] 3 mg PO DAILY 08/18/18 [History] cloZAPine [Clozaril] 125 mg PO HS tablet 09/03/18 [Rx] Allergy/AdvReac Type Severity Reaction Status Date / Time No Known Allergies Allergy Verified 08/13/18 13:03 All Systems PM: A 10-system review of systems was performed and is negative for pertinent findings except as documented above in the HPI. - Constitutional Constitutional: no chills, no fatigue, no fever(s), no weakness - EENT Eyes: no blurry vision, no pain Nose, mouth and throat: no bleeding gums - Cardiovascular Cardiovascular ROS IM: lightheadedness, no chest pain, no diaphoresis, no dyspnea, no edema, no palpitations, no paroxysmal nocturnal dyspnea - Respiratory Respiratory: no cough, no dyspnea, no wheezing, no chest congestion - Gastrointestinal Gastrointestinal: constipation, no diarrhea, no dyspepsia, no heartburn, no nausea, no vomiting - Genitourinary Genitourinary ROS male: no hematuria, no nocturia, no urinary frequency, no urinary hesitancy, no urinary urgency - Musculoskeletal Musculoskeletal ROS IM: no back pain, no neck pain - Integumentary Integumentary IM: no rash - Neurological Neurological ROS: dizziness, no lack of coordination, no tingling, no vertigo - Psychiatric Psychiatric: no auditory hallucinations, no confusion, no homicidal ideation, no suicidal ideation, no visual hallucinations - Endocrine Endocrine IM: no cold intolerance, no excessive sweating, no polydipsia, no polyphagia, no polyuria - Allergic/Immunologic Additional comments: Rest of the review of system negative. - Constitutional Vitals: Temp Pulse Resp BP Pulse Ox 97.7 F 115 16 149/92 99 09/06/18 09:14 09/06/18 09:14 09/06/18 09:14 09/06/18 09:14 09/06/18 09:14 Exam: General: Alert and oriented x4. In mild distress due to abdominal distention. Skin: Normal color, poor skin turgor, no rash, no lesions. HEENT: EOM, pupils equal, round and reactive. dry oral mucosa. Cardiovascular: RR, Normal S1 & S2, no rubs, murmurs or gallops. Lungs: CTA bilaterally, no wheezes, rales or crackles. Abdomen: Obese, Soft, non-tender, no rigidity. NABS in all 4 quadrants. Extremities: No deformity, no edema or tenderness, no joint swelling or clubbing. Neurological: Normal cognition and motor skills. Rest of the physical exam is non contributory Internal Med - H&P Results - Labs CBC & Chem 7: 09/06/18 09:30 09/06/18 09:30 Labs: Short CBC 09/06/18 Range/Units 09:30 WBC 6.8 (4.3-11.1) K/mcL Hgb 12.1 L (12.9-16.9) g/dL Hct 37.3 L (37.5-50.1) % Plt Count 195 (140-400) K/mcL Neutrophils # 4.7 (1.6-8.9) K/mcL BMP 09/06/18 09:30 Sodium 128 L Potassium 6.1 H Chloride 95 L Carbon Dioxide 24 BUN 18 Creatinine 1.08 Glucose 696 H* Calcium 9.2 Cardiac Enzymes 09/06/18 Range/Units 09:30 Troponin I < 0.03 (< 0.04) ng/mL Liver Function 09/06/18 Range/Units 09:30 Total Bilirubin 0.5 (0.3-1.0) mg/dL AST 14 (13-39) Units/L ALT 22 (7-52) Units/L Alkaline Phosphatase 68 (34-104) Units/L Albumin 3.9 (3.5-5.7) g/dL Urine 09/06/18 Range/Units 09:36 Urine Color Yellow (Yellow) Urine Clarity Clear (Clear) Urine pH 6.0 (5.0-8.0) pH Units Ur Specific [place] > 1.030 H (1.010-1.025) Urine Protein Negative (Neg-Trace) mg/dL Urine Glucose (UA) >=1000 H (Normal) mg/dL - ABG Interpretation ABG results: 09/06/18 09:42 VBG pH 7.28 L VBG pCO2 53 H VBG pO2 41 VBG HCO3 25 - EKG Data EKG shows normal: sinus rhythm Rate: normal - Impressions ITS Impressions Chest X-Ray 09/06/18 09:09 IMPRESSION: No acute process. D/ / Smith Neville MD / Smith Neville MD Interpreting Provider: Smith Neville MD Abdomen/Pelvis CT 09/06/18 09:57 IMPRESSION: 1. Constipation. 2. Nonspecific perinephric inflammatory stranding. 3. Left basilar atelectasis. D/ / Merrill Wise MD / Merrill Wise MD Interpreting Provider: Merrill Wise MD - Assessment and plan (1) Hyperglycemia without ketosis Current Visit: Yes Status: Acute Assessment and plan: Due to uncontrolled diabetes. Plan IV hydration with 0.45%NS@75ms/hr for at least 24 hours Started on Levemir 14 units BID, plus Lispro 4 units AC and Medium dose sliding scale Carb controlled diet Accu-checks Q AC/HS Diabetic education Repeat BMP A1c lipid panel. (2) Hyperkalemia Current Visit: Yes Status: Acute Assessment and plan: Plan of care as above. telemetry monitoring. (3) Abdominal discomfort Current Visit: No Status: Acute Assessment and plan: Possible secondary to constipation. Plan: Abd/Pelvic CT done Will start patient on lactulose 20mg/PO BID (4) DVT prophylaxis Current Visit: No Status: Acute Assessment and plan: Heparin 5000 units SubQ BID for DVT prophylaxis (5) Schizophrenia Current Visit: No Status: Chronic Assessment and plan: Will resume patient home medications. Qualifiers: Schizophrenia type: undifferentiated schizophrenia Qualified Code(s): F20.3 - Undifferentiated schizophrenia (6) Bipolar disorder Current Visit: No Status: Chronic Assessment and plan: Plan of care as above. Qualifiers: Active/Remission status: remission status unspecified Qualified Code(s): F31.9 - Bipolar disorder, unspecified (7) Hypertension Current Visit: No Status: Chronic Assessment and plan: BP well controlled. Patient on Lisinopril and metoprolol. Will resume home medications. Qualifiers: Hypertension type: essential hypertension Qualified Code(s): I10 - Essential (primary) hypertension (8) Dehydration Current Visit: No Status: Acute Assessment and plan: Poor skin turgor and dry oral mucosa. Patient started IV fluid for hydration. - Time Spent With Patient Total time spent is greater than 50% in coordination of care (as documented) at patient's floor/unit and/or counseling patient: 25 - 35 minutes
[2018-09-06 12:00] LABS: Estimated Average Glucose 186 mg/dl; Hemoglobin A1C 8.1 %
[2018-09-06 12:17] LABS: BUN/Creatinine Ratio 18 (6-26); Blood Urea Nitrogen 18 mg/dL (6-20); Calcium 8.9 mg/dL (8.6-10.3); Carbon Dioxide 23 mEq/L (23-29); Chloride 105 mEq/L (98-107); Glucose 269 mg/dL (70-105); Magnesium 2.1 mg/dL (1.6-2.6); Osmolality,Calculated 291 (280-300); Potassium 4.7 mEq/L (3.5-5.1); Sodium 135 mEq/L (136-145); eGFR For Non-African Americans > 60 (> 60)
[2018-09-06] MEDS: Insulin LISPRO 300 UNITS/3 ML VIAL SQ SCH ×4 (13:02→17:03)
[2018-09-06] MEDS: Valproic Acid 250 MG CAPSULE PO SCH ×2 (13:03→17:02)
[2018-09-06] MEDS: Lisinopril 20 MG TABLET PO SCH (14:51)
[2018-09-06] MEDS: Lactulose Oral Soln 20 GM/30 ML UDC PO SCH ×2 (14:51→21:40)
[2018-09-06] MEDS: *HR* Heparin 5,000 UNIT/ML VIAL SQ SCH (17:02)
[2018-09-06] MEDS: Insulin DETEMIR 100 UNIT/ML X5UNITS SQ SCH (21:45)
[2018-09-07] MEDS: traMADol 50 MG TABLET PO PRN (03:24)
[2018-09-07] MEDS: *HR* Heparin 5,000 UNIT/ML VIAL SQ SCH ×2 (05:25→16:53)
[2018-09-07 05:52] LABS: Hematocrit 36.9 % (37.5-50.1); Hemoglobin 12.6 g/dL (12.9-16.9); Mean Corpuscular HGB Conc 34.1 g/dL (31.6-35.5); Mean Corpuscular Hemoglobin 30.6 pg (28.0-33.3); Mean Corpuscular Volume 89.6 fL (83.0-100.0); Mean Platelet Volume 10.3 fL (9.4-12.4); Platelet Count 183 K/mcL (140-400); Red Blood Count 4.12 M/mcL (4.19-5.50); Red Cell Distribution Width 12.3 % (11.5-14.5)
[2018-09-07 06:01] LABS: Prothrombin Time 11.1 Seconds (9.4-12.1)
[2018-09-07 06:03] LABS: Activated Partial Thrombo Time 49.2 Seconds (26.0-36.0)
[2018-09-07] MEDS: Insulin LISPRO 300 UNITS/3 ML VIAL SQ SCH ×6 (08:02→16:53)
[2018-09-07] MEDS: Valproic Acid 250 MG CAPSULE PO SCH ×3 (08:11→16:53)
[2018-09-07] MEDS: Metoprolol XL (24 HR) Succ 25 MG TAB.ER.24H PO SCH (08:11)
[2018-09-07] MEDS: risperiDONE 1 MG TABLET PO SCH (08:11)
[2018-09-07] MEDS: Lisinopril 20 MG TABLET PO SCH (08:11)
[2018-09-07] MEDS: Aspirin Enteric Coated 81 MG Tablet PO SCH (08:12)
[2018-09-07] MEDS: Lactulose Oral Soln 20 GM/30 ML UDC PO SCH (08:12)
[2018-09-07] MEDS: Insulin DETEMIR 100 UNIT/ML X5UNITS SQ SCH (08:12)
--- NOTE | 2018-09-07 11:37 | Internal Med Progress Note ---
Hospitalist Progress Note - Encounter Date of Encounter: 09/07/18 Time of Encounter: 11:35 - Subjective Interval History: Pt admits to non-compliance with home diabetic medication. States he just wasn't feeling up to it. He states abdominal pain resolved. Has had some bowel movement. - Exam Vitals: Temp Pulse Resp BP Pulse Ox 97.6 F 94 16 115/68 96 09/07/18 11:04 09/07/18 11:04 09/07/18 11:04 09/07/18 11:04 09/07/18 11:04 Exam: General: Alert and oriented x4. In mild distress due to abdominal distention. Skin: Normal color, poor skin turgor, no rash, no lesions. HEENT: EOM, pupils equal, round and reactive. dry oral mucosa. Cardiovascular: RR, Normal S1 & S2, no rubs, murmurs or gallops. Lungs: CTA bilaterally, no wheezes, rales or crackles. Abdomen: Obese, Soft, non-tender, no rigidity. NABS in all 4 quadrants. Extremities: No deformity, no edema or tenderness, no joint swelling or clubbing. Neurological: Normal cognition and motor skills. Rest of the physical exam is non contributory - Assessment and Plan (1) Hyperglycemia without ketosis Current Visit: Yes Status: Acute Assessment and Plan: Due to uncontrolled diabetes. Plan IV hydration with 0.45%NS@75ms/hr for at least 24 hours Started on Levemir 14 units BID and will increase to 20 units BID. On Lispro 4 units AC and Medium dose sliding scale Carb controlled diet Accu-checks Q AC/HS Diabetic education out pt at discharge Repeating BMP today A1c lipid panel. (2) Hyperkalemia Current Visit: Yes Status: Acute Assessment and Plan: K corrected, 4.7 09/07/2018 (3) Dehydration Current Visit: No Status: Acute Assessment and Plan: Poor skin turgor and dry oral mucosa. Patient started IV fluid for hydration. (4) Abdominal discomfort Current Visit: No Status: Acute Assessment and Plan: Possible secondary to constipation and hyperglycemia. Pt denies abdominal pain today. HAs ahd some BM Plan: Abd/Pelvic CT done and reviewed, see below. Who given lactulose 20mg/PO BID but will DC since K corrected. CT abd CT/CT abd pelvis w iv no oral IMPRESSION: 1. Constipation. 2. Nonspecific perinephric inflammatory stranding. 3. Left basilar atelectasis. (5) Schizophrenia Current Visit: No Status: Chronic Assessment and Plan: On Lexapro and Risperdal. Resumed patient home medications. (6) Bipolar disorder Current Visit: No Status: Chronic Assessment and Plan: Plan of care as above. (7) Hypertension Current Visit: No Status: Chronic Assessment and Plan: BP well controlled. Patient on Lisinopril and metoprolol. (8) Medical non-compliance Current Visit: Yes Status: Acute Assessment and Plan: Pt admits to not taking his insulin. DVT Prophylaxis: Heparin 5000 units SubQ BID for DVT prophylaxis - Summary of Assessment and Plan Summary of Assessment and Plan: Mr. Hough is a 57 year old male with past mendical history of T2DM, HLD, HTN, Bipolar disorder and schizophrenia. Patient presented to the ED reporting that when he got up today morning and checked his blood sugar it was high >400, for which he decided to come to the ED. He denies nausea, vomiting, generalized weakness but reports that when he got up he felt dizzy and lightheaded. Patient also denies fever/chills or pain with urination. Report that he thinks he is constipated, but denies abdominal pain, denies polyuria, polydipsia or polyphagia. Patient reports being compliant with his medications but he lacks insight about his chronic conditions. In the ED patient blood sugar found to be >600, and potassium 6.1 without EKG changes, Medicine team called for admission. - Time Spent with Patient Total time spent is greater than 50% in coordination of care (as documented) at patient's floor/unit and/or counseling patient: less than 15 minutes Plan of Care Discussed with: patient Internal Medicine: Result - Labs CBC & Chem 7: 09/07/18 05:22 09/06/18 11:42 Labs: Short CBC 09/07/18 Range/Units 05:22 WBC 8.3 (4.3-11.1) K/mcL Hgb 12.6 L (12.9-16.9) g/dL Hct 36.9 L (37.5-50.1) % Plt Count 183 (140-400) K/mcL BMP 09/06/18 11:42 Sodium 135 L Potassium 4.7 Chloride 105 Carbon Dioxide 23 BUN 18 Creatinine 1.01 Glucose 269 H Calcium 8.9 - ABG Interpretation ABG results: PT/INR, D-dimer PT 11.1 Seconds (9.4-12.1) 09/07/18 05:22 Consult Discharge Plan - Plan Referrals: NONE,PCP [Primary Care Provider] - (5) Schizophrenia Qualifiers: Schizophrenia type: undifferentiated schizophrenia Qualified Code(s): F20.3 - Undifferentiated schizophrenia (6) Bipolar disorder Qualifiers: Active/Remission status: remission status unspecified Qualified Code(s): F31.9 - Bipolar disorder, unspecified (7) Hypertension Qualifiers: Hypertension type: essential hypertension Qualified Code(s): I10 - Essential (primary) hypertension
[2018-09-07 14:19] LABS: BUN/Creatinine Ratio 11 (6-26); Blood Urea Nitrogen 12 mg/dL (6-20); Calcium 8.8 mg/dL (8.6-10.3); Carbon Dioxide 25 mEq/L (23-29); Chloride 98 mEq/L (98-107); Glucose 339 mg/dL (70-105); Osmolality,Calculated 285 (280-300); Potassium 4.8 mEq/L (3.5-5.1); Sodium 131 mEq/L (136-145); eGFR For Non-African Americans > 60 (> 60)
[2018-09-07] MEDS: 0.9 % Sodium Chloride 1,000 ML IVC SCH (16:54)
--- NOTE | 2018-09-07 19:05 | Electrocardiograph Report ---
[place] [facility] Test Date: 2018-09-06 Pat Name: Ajay Hough Department: EXAM5 Room: 2A38 Gender: M Certified Hyperbaric Technologist: : 1960 Requested By: Lopez Menard Order Number: [id number] Reading MD: Nehemiah Mahoney Measurements Intervals [place] Rate: 109 P: 78 MO: 160 QRS: 54 QRSD: 97 T: 39 QT: 317 QTc: 427 Interpretive Statements Sinus tachycardia Electronically Signed On 09-07-2018 19:03:48 EDT by Nehemiah Mahoney
[2018-09-07] MEDS ORDERED: Insulin DETEMIR 100 UNIT/ML X5UNITS SQ SCH (21:00)
--- NOTE | 2018-09-07 21:08 | Event Note ---
Date of Encounter: 09/07/18 Time of Encounter: 21:07 HS blood sugar elevated w.o bolus hs dosage of humalog insuling. POC glucose now 251, will give 10 units sq humalog x 1 dosag and monitor blood sugars as ordered .
[2018-09-07] MEDS ORDERED: Insulin LISPRO 300 UNITS/3 ML VIAL SQ ONE (21:16)
[2018-09-08] MEDS: traMADol 50 MG TABLET PO PRN ×2 (04:42→11:18)
[2018-09-08] MEDS: *HR* Heparin 5,000 UNIT/ML VIAL SQ SCH (04:42)
[2018-09-08] MEDS: 0.9 % Sodium Chloride 1,000 ML IVC SCH (04:43)
[2018-09-08 07:41] LABS: BUN/Creatinine Ratio 14 (6-26); Blood Urea Nitrogen 12 mg/dL (6-20); Calcium 9.6 mg/dL (8.6-10.3); Carbon Dioxide 27 mEq/L (23-29); Chloride 103 mEq/L (98-107); Glucose 192 mg/dL (70-105); Osmolality,Calculated 285 (280-300); Potassium 4.9 mEq/L (3.5-5.1); Sodium 135 mEq/L (136-145); eGFR For Non-African Americans > 60 (> 60)
[2018-09-08] MEDS: Lisinopril 20 MG TABLET PO SCH (08:35)
[2018-09-08] MEDS: Valproic Acid 250 MG CAPSULE PO SCH ×2 (08:35→11:18)
[2018-09-08] MEDS: Insulin LISPRO 300 UNITS/3 ML VIAL SQ SCH ×4 (08:36→11:19)
[2018-09-08] MEDS: Aspirin Enteric Coated 81 MG Tablet PO SCH (08:36)
[2018-09-08] MEDS: Metoprolol XL (24 HR) Succ 25 MG TAB.ER.24H PO SCH (08:36)
[2018-09-08] MEDS: risperiDONE 1 MG TABLET PO SCH (08:36)
--- NOTE | 2018-09-08 08:37 | Discharge Summary ---
- NOTES TO OUTPATIENT PROVIDER Notes to Outpatient Provider: Follow with PCP for possible insulin adjustement. Orders not resulted at time of discharge: Pending orders 09/06/18 10:58 Accucheck [POC Glucometer Test] [POC] Stat 09/09/18 04:00 BMP [Basic Metabolic Panel] AM 0400 Date of Encounter: 09/08/18 Time of Encounter: 08:34 - Discharge Diagnosis (1) Hyperglycemia without ketosis Priority: Primary Status: Resolved (2) Dehydration Priority: Secondary Status: Acute (3) Schizophrenia Priority: Secondary Status: Chronic Qualifiers: Schizophrenia type: undifferentiated schizophrenia Qualified Code(s): F20.3 - Undifferentiated schizophrenia (4) Bipolar disorder Priority: Secondary Status: Chronic Qualifiers: Active/Remission status: remission status unspecified Qualified Code(s): F31.9 - Bipolar disorder, unspecified (5) Hypertension Priority: Secondary Status: Chronic Qualifiers: Hypertension type: essential hypertension Qualified Code(s): I10 - Essential (primary) hypertension (6) Abdominal discomfort Priority: Secondary Status: Resolved (7) Hyperkalemia Priority: Secondary Status: Resolved (8) Medical non-compliance Priority: Secondary Status: Chronic (9) Hyponatremia Priority: Secondary Status: Resolved Hospital course: Mr. Hough is a 57 year old male past medical history significant for schizophrenia, bipolar disorder type 2 diabetes and hypertension. Patient presented to the ED reporting that when he got up today morning and checked his blood sugar it was high >400. Patient admitted to the hospital for hyperglycemia without ketosis due to vacation noncompliance. Dehydration and hyponatremia. Patient treated with insulin, IV hydration. Abdominal pelvic CT was done due to abdominal discomfort, reveals constipation, and nonspecific perinephric inflammatory stranding. Patient acute symptoms resolved, and patient is hemodynamically stable to be discharged home. Recommended to follow-up with his primary care physician, for possible medication adjustment. - Time Spent with Patient Total time spent providing and/or coordinating discharge services: Less than 30 minutes - Discharge Medications Home Medications: Aspirin [Lo-Dose Aspirin EC] 81 mg PO DAILY 08/18/18 [History] Atorvastatin [Lipitor] 40 mg PO HS 08/18/18 [History] Divalproex Sodium [Depakote] 500 mg PO TID 08/18/18 [History] Escitalopram [Lexapro] 20 mg PO DAILY 08/18/18 [History] Glimepiride [Amaryl] 2 mg PO DAILY 08/18/18 [History] Insulin Glargine [Lantus] 25 unit SQ DAILY 08/18/18 [History] Lisinopril [Zestril] 20 mg PO DAILY 08/18/18 [History] Metformin HCl [Glucophage] 1,000 mg PO BID 08/18/18 [History] Metoprolol Succinate [Toprol Xl] 25 mg PO DAILY 08/18/18 [History] Quetiapine Fumarate [Quetiapine Fumarate ER] 50 mg PO HS 08/18/18 [History] Ranitidine HCl [Acid Folding Rules Printing Machine Operator] 150 mg PO BID 08/18/18 [History] risperiDONE [RisperDAL] 3 mg PO DAILY 08/18/18 [History] cloZAPine [Clozaril] 125 mg PO HS tablet 09/03/18 [Rx] Allergies/Adverse Reactions: Allergy/AdvReac Type Severity Reaction Status Date / Time No Known Allergies Allergy Verified 08/13/18 13:03 Date of admission: 09/06/18 11:06 Primary care physician: PCP NONE Consults: 09/06/18 15:26 Consult to Dairy Equipment Mechanic [CONS] Routine Reason for SW Consult: Patient from [facility]. Has guardian (sister) Beverly - Constitutional Vitals: Temp Pulse Resp BP Pulse Ox 98.1 F 87 19 125/77 95 09/08/18 07:54 09/08/18 07:54 09/08/18 07:54 09/08/18 07:54 09/08/18 07:54 Exam: General: Alert and oriented 4. In no acute distress. Skin: Normal color, no rash, no lesions. HEENT: EOM, pupils equal, round and reactive. Cardiovascular: RRR, Normal S1 & S2, no rubs, murmurs or gallops. Lungs: Clear to auscultation bilaterally,, no wheezes or crackles. Abdomen: Obese, Soft, non-tender, no rigidity. NABS in all 4 quadrants. Extremities: No deformity, no edema or tenderness, no joint swelling or clubbing. Neurological: CN II-XII intact. Rest of the physical exam is non contributory - Patient Status Disposition: Home Health Service Condition: Good Functional capacity at discharge: independent ambulation Overall status at discharge: patient is back to baseline - Discharge Instructions Follow Up With: NONE,PCP [Primary Care Provider] - - Diet and Activity Activity: resume usual activities as tolerated Diet: diabetic diet
[2018-09-08] MEDS ORDERED: Insulin DETEMIR 100 UNIT/ML X5UNITS SQ SCH (09:00)
[2018-09-08 11:21] VITALS: BP 120/83
== END 2018-09-08 11:38 | disposition home health service (06) ==
LOC: 2NNU 09:03 → EMEROOARM 09:03 → 2NNU 11:07 → 2ANU 11:48
PROVIDERS: ADMIT Internal Medicine; ATTEND Internal Medicine

== ENCOUNTER 2021-11-16 09:12 | Inpatient (IN) ==
[2021-11-16] MEDS ORDERED: 0.9 % Sodium Chloride 1,000 ML IVC ONE (09:19)
[2021-11-16 10:17] LABS: Mean Corpuscular HGB Conc 31.8 g/dL (31.6-35.5)
[2021-11-16 10:19] LABS: Mean Corpuscular Volume 97.5 fL (83.0-100.0); Platelet Count 101 K/mcL (140-400)
[2021-11-16] MEDS ORDERED: 0.9 % Sodium Chloride 500 ML IVC ONE (10:19)
[2021-11-16 10:21] LABS: Basophils # 0.1 K/mcL (0.0-0.2); Basophils % 0.9 %; Hematocrit 43.4 % (37.5-50.1); Hemoglobin 13.8 g/dL (12.9-16.9); Immature Granulocytes % 2.4 % (0-4); Immature Platelets 2.6 % (1.1-6.1); Lymphocytes # 1.1 K/mcL (0.6-4.6); Lymphocytes % 20.8 %; Mean Platelet Volume 10.3 fL (9.4-12.4); Monocytes # 0.7 K/mcL (0.0-1.3); Monocytes % 12.9 %; Neutrophils # 3.4 K/mcL (1.6-8.9); Red Blood Count 4.45 M/mcL (4.19-5.50); Red Cell Distribution Width 13.5 % (11.5-14.5); White Blood Count 5.4 K/mcL (4.3-11.1)
[2021-11-16 10:38] LABS: Alanine Aminotransferase 15 Units/L (7-52); Albumin 3.9 g/dL (3.5-5.7); Albumin/Globulin Ratio 1.3 (1.1-2.2); Alkaline Phosphatase 46 Units/L (34-104); Aspartate Amino Transferase 28 Units/L (13-39); BUN/Creatinine Ratio 16 (6-26); Bilirubin,Direct 0.1 mg/dL (0.0-0.2); Bilirubin,Indirect 0.4 mg/dL (0.0-1.0); Bilirubin,Total 0.5 mg/dL (0.3-1.0); Blood Urea Nitrogen 22 mg/dL (8-23); Calcium 8.7 mg/dL (8.6-10.3); Carbon Dioxide 27 mEq/L (23-29); Chloride 96 mEq/L (98-107); Ethanol < 10 mg/dL (Less than 10); Glucose 119 mg/dL (70-105); Osmolality,Calculated 278 (280-300); Potassium 4.8 mEq/L (3.5-5.1); Sodium 132 mEq/L (136-145); Total Protein 6.9 g/dL (6.4-8.9); Troponin I < 0.03 ng/mL (< 0.04); eGFR For African Americans > 60 (> 60); eGFR For Non-African Americans 51 (> 60)
[2021-11-16 10:50] LABS: Influenza A PCR Negative (Negative); Influenza B PCR Negative (Negative); Resp. Syncytial Virus PCR Negative (Negative)
[2021-11-16 11:01] LABS: SARS-CoV-2 by PCR (In House) Positive (Negative)
[2021-11-16 11:58] LABS: Bacteria,Urine Few per hpf (None-Few); Bilirubin,Urine Negative (Negative); Blood,Urine Negative (Negative); Clarity,Urine Clear (Clear); Color,Urine Yellow (Yellow); Glucose,Urine (UA) >=1000 mg/dL (Normal); Ketones,Urine 10 mg/dL (Negative); Leukocyte Esterase,Urine Negative (Negative); Mucus,Urine Few per lpf (None-Few); Nitrite,Urine Negative (Negative); Protein,Urine 50 mg/dL (Neg-Trace); Specific Gravity,Urine > 1.030 (1.010-1.025); Urobilinogen,Urine Normal (Normal); WBC,Urine 0-3 per hpf (0-3)
[2021-11-16 12:02] LABS: Amphetamine Screen,Urine Negative ng/mL (Cutoff=1000); Barbiturate Screen,Urine Negative ng/mL (Cutoff=200); Benzodiazepines Screen,Urine Negative ng/mL (Cutoff=200); Cannabinoid Screen,Urine Negative ng/mL (Cutoff = 50); Cocaine Screen,Urine Negative ng/mL (Cutoff= 300); Opiate Screen,Urine Negative ng/mL (Cutoff=300); Phencyclidine Screen,Urine Negative ng/mL (Cutoff=25)
[2021-11-16] MEDS ORDERED: Acetaminophen 325 MG TABLET PO PRN (12:27)
[2021-11-16] MEDS ORDERED: Naloxone 0.4 MG/ML INJ IVP PRN (12:29)
[2021-11-16 12:38] LABS: C-Reactive Protein 32 mg/L (Less than 10); Lactate Dehydrogenase 240 Units/L (140-271)
[2021-11-16] MEDS ORDERED: Dextrose Gel 15 GM/37.5 ML TUBE PO PRN ×2 (12:58)
[2021-11-16] MEDS ORDERED: *HR* Dextrose 50 % in Water (Syg) 50 ML SYRINGE IVP PRN (12:58)
[2021-11-16] MEDS ORDERED: D5% in Water 1,000 ML IVC PRN (12:58)
[2021-11-16] MEDS: Insulin LISPRO 300 UNITS/3 ML VIAL SUBQ SCH ×2 (16:13→21:41)
[2021-11-16] MEDS: Ipratropium 1 PUFF INHALER IH SCH ×3 (16:26→23:17)
[2021-11-16] MEDS ORDERED: Sennosides 8.6 MG TABLET PO PRN (16:32)
[2021-11-16] MEDS ORDERED: Insulin DETEMIR 100 UNIT/ML X5UNITS SUBQ SCH (18:00)
[2021-11-16] MEDS: Famotidine 20 MG TABLET PO SCH (20:57)
[2021-11-16] MEDS: cloZAPine 100 MG TABLET PO SCH (20:57)
[2021-11-16] MEDS: Ammonium Lactate 30 APPL/225 GM BOTTLE TP SCH (20:59)
[2021-11-16] MEDS ORDERED: Brinzolamide 1% 10 ML BOTTLE BOTH EYES SCH (21:00)
[2021-11-16] MEDS: Dorzolamide OPTH 10 ML BOTTLE BOTH EYES SCH (21:15)
[2021-11-16] MEDS: Latanoprost 2.5 ML BOTTLE BOTH EYES SCH (21:15)
[2021-11-16] MEDS: Patient Taking Own Medication 1 EACH PO SCH (21:41)
[2021-11-16] MEDS: Divalproex (12 HR) 500 MG TABLET PO SCH (21:50)
[2021-11-17] MEDS: Ipratropium 1 PUFF INHALER IH SCH ×6 (04:10→23:43)
[2021-11-17 05:28] LABS: Basophils % 0.7 %; Hemoglobin 13.1 g/dL (12.9-16.9); Mean Corpuscular Hemoglobin 31.8 pg (28.0-33.3); Red Blood Count 4.12 M/mcL (4.19-5.50); Segmented Neutrophils % 63.2 %
[2021-11-17 05:31] LABS: Hematocrit 40.1 % (37.5-50.1); Immature Granulocytes % 3.8 % (0-4); Immature Platelets 3.8 % (1.1-6.1); Lymphocytes # 1.2 K/mcL (0.6-4.6); Mean Corpuscular HGB Conc 32.7 g/dL (31.6-35.5); Mean Corpuscular Volume 97.3 fL (83.0-100.0); Mean Platelet Volume 10.4 fL (9.4-12.4); Monocytes # 0.7 K/mcL (0.0-1.3); Monocytes % 11.3 %; Platelet Count 100 K/mcL (140-400); Red Cell Distribution Width 13.2 % (11.5-14.5); White Blood Count 5.8 K/mcL (4.3-11.1)
[2021-11-17 05:32] LABS: Neutrophils # 3.7 K/mcL (1.6-8.9)
[2021-11-17 05:45] LABS: Alanine Aminotransferase 14 Units/L (7-52); Albumin 3.7 g/dL (3.5-5.7); Albumin/Globulin Ratio 1.3 (1.1-2.2); Alkaline Phosphatase 40 Units/L (34-104); Aspartate Amino Transferase 29 Units/L (13-39); BUN/Creatinine Ratio 22 (6-26); Bilirubin,Total 0.4 mg/dL (0.3-1.0); Blood Urea Nitrogen 26 mg/dL (8-23); Calcium 8.6 mg/dL (8.6-10.3); Carbon Dioxide 30 mEq/L (23-29); Chloride 97 mEq/L (98-107); Globulin 2.8 g/dL (2.4-3.5); Glucose 166 mg/dL (70-105); Magnesium 2.5 mg/dL (1.6-2.6); Osmolality,Calculated 283 (280-300); Potassium 4.7 mEq/L (3.5-5.1); Sodium 132 mEq/L (136-145); Total Protein 6.5 g/dL (6.4-8.9); eGFR For African Americans > 60 (> 60); eGFR For Non-African Americans > 60 (> 60)
[2021-11-17] MEDS: *HR* Enoxaparin 40 MG/0.4 ML SYRINGE SQ SCH (06:07)
[2021-11-17] MEDS: Insulin LISPRO 300 UNITS/3 ML VIAL SUBQ SCH ×4 (08:31→21:08)
[2021-11-17] MEDS: Patient Taking Own Medication 1 EACH PO SCH ×2 (08:49→21:08)
[2021-11-17] MEDS: Divalproex (12 HR) 500 MG TABLET PO SCH ×3 (08:57→20:49)
[2021-11-17] MEDS: Aspirin Enteric Coated 81 MG Tablet PO SCH (08:57)
[2021-11-17] MEDS: Metoprolol XL (24 HR) Succ 25 MG TAB.ER.24H PO SCH (08:57)
[2021-11-17] MEDS ORDERED: risperiDONE 1 MG TABLET PO SCH (09:00)
[2021-11-17] MEDS ORDERED: VALBENAZINE TOSYLATE 40 MG PO SCH (09:00)
[2021-11-17] MEDS: Ammonium Lactate 30 APPL/225 GM BOTTLE TP SCH ×2 (09:02→21:09)
[2021-11-17] MEDS: Dorzolamide OPTH 10 ML BOTTLE BOTH EYES SCH ×3 (09:03→21:06)
[2021-11-17 17:12] LABS: Estimated Average Glucose 143 mg/dl; Hemoglobin A1C 6.6 %
[2021-11-17] MEDS: Insulin DETEMIR 100 UNIT/ML X5UNITS SUBQ SCH (18:25)
[2021-11-17] MEDS: cloZAPine 100 MG TABLET PO SCH (20:50)
[2021-11-17] MEDS: Famotidine 20 MG TABLET PO SCH (20:52)
[2021-11-17] MEDS: Latanoprost 2.5 ML BOTTLE BOTH EYES SCH (21:07)
[2021-11-17] MEDS: *HR* Metoprolol 5 MG/5 ML VIAL IVP ONE (22:44)
[2021-11-17] MEDS ORDERED: *HR* LORazepam 2 MG/ML VIAL IVP ONE (23:08)
[2021-11-17] MEDS ORDERED: *HR* LORazepam 2 MG/ML VIAL ONE (23:10)
[2021-11-17 23:32] LABS: ABG Base Excess 3 mEq/L (-2 to 3); ABG HCO3 30 mEq/L (21-27); ABG Oxygen Saturation 83 % (95-98); ABG PCO2 56 mmHg (35-45); ABG PH 7.34 pH Units (7.32-7.45); ABG PO2 51 mmHg (85-104); ABG TCO2 32 mEq/L (20-26)
[2021-11-18] MEDS ORDERED: Acetaminophen IV 1,000 MG/100 ML BAG IVPB ONE (00:17)
[2021-11-18 00:44] LABS: Hemoglobin 12.6 g/dL (12.9-16.9)
[2021-11-18 00:47] LABS: Hematocrit 39.5 % (37.5-50.1); Immature Platelets 4.7 % (1.1-6.1); Mean Corpuscular HGB Conc 31.9 g/dL (31.6-35.5); Mean Corpuscular Hemoglobin 30.4 pg (28.0-33.3); Mean Corpuscular Volume 95.4 fL (83.0-100.0); Mean Platelet Volume 10.2 fL (9.4-12.4); Platelet Count 115 K/mcL (140-400); Red Blood Count 4.14 M/mcL (4.19-5.50); Red Cell Distribution Width 13.3 % (11.5-14.5); White Blood Count 6.6 K/mcL (4.3-11.1)
[2021-11-18 01:02] LABS: BUN/Creatinine Ratio 20 (6-26); Blood Urea Nitrogen 26 mg/dL (8-23); Calcium 8.7 mg/dL (8.6-10.3); Carbon Dioxide 30 mEq/L (23-29); Chloride 96 mEq/L (98-107); Glucose 128 mg/dL (70-105); Osmolality,Calculated 280 (280-300); Potassium 4.7 mEq/L (3.5-5.1); Sodium 132 mEq/L (136-145); eGFR For African Americans > 60 (> 60); eGFR For Non-African Americans 54 (> 60)
[2021-11-18 02:29] LABS: Lymphocytes # 1.1 K/mcL (0.6-4.6); Monocytes # 0.7 K/mcL (0.0-1.3); Neutrophils # 4.8 K/mcL (1.6-8.9); Platelet Estimate Slight Decrease (Normal); Reactive Lymphocytes Present (Not Present)
[2021-11-18] MEDS: Ipratropium 1 PUFF INHALER IH SCH ×5 (03:44→20:43)
[2021-11-18] MEDS: *HR* Enoxaparin 40 MG/0.4 ML SYRINGE SQ SCH (05:22)
[2021-11-18] MEDS: *HR* Metoprolol 5 MG/5 ML VIAL IVP ONE (07:20)
[2021-11-18] MEDS: Insulin LISPRO 300 UNITS/3 ML VIAL SUBQ SCH ×4 (08:04→20:46)
[2021-11-18] MEDS: Patient Taking Own Medication 1 EACH PO SCH ×2 (08:04→20:45)
[2021-11-18] MEDS: Metoprolol XL (24 HR) Succ 25 MG TAB.ER.24H PO SCH (08:30)
[2021-11-18] MEDS: Aspirin Enteric Coated 81 MG Tablet PO SCH (08:30)
[2021-11-18] MEDS: Ammonium Lactate 30 APPL/225 GM BOTTLE TP SCH ×2 (08:31→20:46)
[2021-11-18] MEDS: Divalproex (12 HR) 500 MG TABLET PO SCH ×3 (08:33→20:45)
[2021-11-18] MEDS: Dorzolamide OPTH 10 ML BOTTLE BOTH EYES SCH ×3 (08:33→20:46)
[2021-11-18 10:25] LABS: Albumin 3.6 g/dL (3.5-5.7); Albumin/Globulin Ratio 1.2 (1.1-2.2); Bilirubin,Direct 0.1 mg/dL (0.0-0.2); Bilirubin,Indirect 0.4 mg/dL (0.0-1.0); Bilirubin,Total 0.5 mg/dL (0.3-1.0); Globulin 3.1 g/dL (2.4-3.5); Total Protein 6.7 g/dL (6.4-8.9)
[2021-11-18 11:44] LABS: Ferritin 129 ng/mL (20-250)
[2021-11-18] MEDS: Insulin DETEMIR 100 UNIT/ML X5UNITS SUBQ SCH (16:50)
[2021-11-18] MEDS: Famotidine 20 MG TABLET PO SCH (20:45)
[2021-11-18] MEDS: Latanoprost 2.5 ML BOTTLE BOTH EYES SCH (20:47)
[2021-11-19] MEDS: Ipratropium 1 PUFF INHALER IH SCH ×7 (00:11→23:14)
[2021-11-19] MEDS: *HR* Enoxaparin 40 MG/0.4 ML SYRINGE SQ SCH (05:45)
[2021-11-19 06:15] LABS: Hematocrit 39.2 % (37.5-50.1); Mean Corpuscular HGB Conc 33.2 g/dL (31.6-35.5); Mean Corpuscular Hemoglobin 31.8 pg (28.0-33.3); Mean Corpuscular Volume 95.8 fL (83.0-100.0); Mean Platelet Volume 10.3 fL (9.4-12.4); Nucleated Red Blood Cells 0.6 /100 WBC (0); Platelet Count 171 K/mcL (140-400); Red Blood Count 4.09 M/mcL (4.19-5.50); Red Cell Distribution Width 13.3 % (11.5-14.5); White Blood Count 7.8 K/mcL (4.3-11.1)
[2021-11-19 06:32] LABS: Alanine Aminotransferase 12 Units/L (7-52); Albumin 3.4 g/dL (3.5-5.7); Albumin/Globulin Ratio 1.2 (1.1-2.2); Alkaline Phosphatase 38 Units/L (34-104); Aspartate Amino Transferase 35 Units/L (13-39); BUN/Creatinine Ratio 29 (6-26); Bilirubin,Total 0.4 mg/dL (0.3-1.0); Blood Urea Nitrogen 33 mg/dL (8-23); Calcium 8.6 mg/dL (8.6-10.3); Carbon Dioxide 28 mEq/L (23-29); Chloride 95 mEq/L (98-107); Globulin 2.8 g/dL (2.4-3.5); Glucose 114 mg/dL (70-105); Osmolality,Calculated 278 (280-300); Potassium 4.8 mEq/L (3.5-5.1); Sodium 130 mEq/L (136-145); Total Protein 6.2 g/dL (6.4-8.9); Valproate 93 mcg/mL (50-100); eGFR For African Americans > 60 (> 60); eGFR For Non-African Americans > 60 (> 60)
[2021-11-19] MEDS: Aspirin Enteric Coated 81 MG Tablet PO SCH (07:55)
[2021-11-19] MEDS: Divalproex (12 HR) 500 MG TABLET PO SCH ×3 (07:55→20:53)
[2021-11-19] MEDS: Metoprolol XL (24 HR) Succ 25 MG TAB.ER.24H PO SCH (07:56)
[2021-11-19] MEDS: Dorzolamide OPTH 10 ML BOTTLE BOTH EYES SCH ×3 (07:56→20:53)
[2021-11-19] MEDS: Insulin LISPRO 300 UNITS/3 ML VIAL SUBQ SCH ×4 (07:57→20:54)
[2021-11-19] MEDS: Patient Taking Own Medication 1 EACH PO SCH ×2 (08:02→20:55)
[2021-11-19 12:15] LABS: Lymphocytes # 1.6 K/mcL (0.6-4.6); Monocytes # 0.5 K/mcL (0.0-1.3); Neutrophils # 5.8 K/mcL (1.6-8.9); Platelet Estimate Normal (Normal)
[2021-11-19 12:16] LABS: Reactive Lymphocytes Present (Not Present)
[2021-11-19] MEDS: Ammonium Lactate 30 APPL/225 GM BOTTLE TP SCH ×2 (12:20→20:52)
[2021-11-19] MEDS: Insulin DETEMIR 100 UNIT/ML X5UNITS SUBQ SCH (18:39)
[2021-11-19] MEDS: cloZAPine 100 MG TABLET PO SCH (20:53)
[2021-11-19] MEDS: Famotidine 20 MG TABLET PO SCH (20:53)
[2021-11-19] MEDS: Latanoprost 2.5 ML BOTTLE BOTH EYES SCH (20:54)
[2021-11-20] MEDS: Ipratropium 1 PUFF INHALER IH SCH ×6 (03:31→23:52)
[2021-11-20] MEDS: *HR* Enoxaparin 40 MG/0.4 ML SYRINGE SQ SCH (06:19)
[2021-11-20] MEDS: Insulin LISPRO 300 UNITS/3 ML VIAL SUBQ SCH ×4 (07:19→21:17)
[2021-11-20] MEDS: Divalproex (12 HR) 500 MG TABLET PO SCH ×3 (09:17→21:16)
[2021-11-20] MEDS: Aspirin Enteric Coated 81 MG Tablet PO SCH (09:17)
[2021-11-20] MEDS: Metoprolol XL (24 HR) Succ 25 MG TAB.ER.24H PO SCH (09:17)
[2021-11-20] MEDS: Patient Taking Own Medication 1 EACH PO SCH ×2 (09:49→21:17)
[2021-11-20] MEDS: Dorzolamide OPTH 10 ML BOTTLE BOTH EYES SCH ×3 (09:49→21:17)
[2021-11-20] MEDS: Ammonium Lactate 30 APPL/225 GM BOTTLE TP SCH ×2 (09:53→21:15)
[2021-11-20 14:19] LABS: Mean Corpuscular HGB Conc 34.2 g/dL (31.6-35.5); Mean Corpuscular Hemoglobin 32.5 pg (28.0-33.3); Mean Platelet Volume 9.9 fL (9.4-12.4); Nucleated Red Blood Cells 0.5 /100 WBC (0); Platelet Count 242 K/mcL (140-400); Red Cell Distribution Width 13.5 % (11.5-14.5)
[2021-11-20 14:21] LABS: White Blood Count 12.5 K/mcL (4.3-11.1)
[2021-11-20 14:39] LABS: BUN/Creatinine Ratio 37 (6-26); Blood Urea Nitrogen 46 mg/dL (8-23); Calcium 8.3 mg/dL (8.6-10.3); Carbon Dioxide 25 mEq/L (23-29); Chloride 91 mEq/L (98-107); Glucose 355 mg/dL (70-105); Osmolality,Calculated 288 (280-300); Sodium 126 mEq/L (136-145); eGFR For African Americans > 60 (> 60); eGFR For Non-African Americans 58 (> 60)
[2021-11-20 14:49] LABS: Lymphocytes # 1.1 K/mcL (0.6-4.6); Monocytes # 0.6 K/mcL (0.0-1.3); Neutrophils # 10.5 K/mcL (1.6-8.9); Platelet Estimate Normal (Normal)
[2021-11-20] MEDS: Insulin DETEMIR 100 UNIT/ML X5UNITS SUBQ SCH (18:04)
[2021-11-20] MEDS: Famotidine 20 MG TABLET PO SCH (21:16)
[2021-11-20] MEDS: cloZAPine 100 MG TABLET PO SCH (21:16)
[2021-11-20] MEDS: Latanoprost 2.5 ML BOTTLE BOTH EYES SCH (21:17)
[2021-11-21] MEDS: Ipratropium 1 PUFF INHALER IH SCH ×5 (04:17→20:01)
[2021-11-21] MEDS: *HR* Enoxaparin 40 MG/0.4 ML SYRINGE SQ SCH (06:15)
[2021-11-21] MEDS: Insulin LISPRO 300 UNITS/3 ML VIAL SUBQ SCH ×4 (09:00→21:52)
[2021-11-21] MEDS: Aspirin Enteric Coated 81 MG Tablet PO SCH (09:09)
[2021-11-21] MEDS: Metoprolol XL (24 HR) Succ 25 MG TAB.ER.24H PO SCH (09:09)
[2021-11-21] MEDS: Patient Taking Own Medication 1 EACH PO SCH ×2 (09:09→21:42)
[2021-11-21] MEDS: Divalproex (12 HR) 500 MG TABLET PO SCH ×3 (09:09→21:52)
[2021-11-21] MEDS: Ammonium Lactate 30 APPL/225 GM BOTTLE TP SCH ×2 (09:10→21:42)
[2021-11-21] MEDS: Dorzolamide OPTH 10 ML BOTTLE BOTH EYES SCH ×3 (09:12→21:36)
[2021-11-21] MEDS: Piperacillin/Tazobactam 3.375 GM in 0.9 % Sodium Chloride Mini Bag 100 ML IVPB SCH ×2 (09:25→17:10)
[2021-11-21 09:55] LABS: Alanine Aminotransferase 11 Units/L (7-52); Albumin 3.1 g/dL (3.5-5.7); Alkaline Phosphatase 40 Units/L (34-104); Aspartate Amino Transferase 32 Units/L (13-39); BUN/Creatinine Ratio 40 (6-26); Bilirubin,Direct 0.1 mg/dL (0.0-0.2); Bilirubin,Indirect 0.5 mg/dL (0.0-1.0); Bilirubin,Total 0.6 mg/dL (0.3-1.0); Blood Urea Nitrogen 43 mg/dL (8-23); Calcium 8.6 mg/dL (8.6-10.3); Carbon Dioxide 28 mEq/L (23-29); Chloride 96 mEq/L (98-107); Globulin 3.1 g/dL (2.4-3.5); Glucose 136 mg/dL (70-105); Osmolality,Calculated 275 (280-300); Potassium 4.8 mEq/L (3.5-5.1); Sodium 126 mEq/L (136-145); Total Protein 6.2 g/dL (6.4-8.9); eGFR For African Americans > 60 (> 60); eGFR For Non-African Americans > 60 (> 60)
[2021-11-21 09:57] LABS: C-Reactive Protein 135 mg/L (Less than 10)
[2021-11-21] MEDS: cloZAPine 100 MG TABLET PO SCH (21:27)
[2021-11-21] MEDS: Famotidine 20 MG TABLET PO SCH (21:30)
[2021-11-21] MEDS: Latanoprost 2.5 ML BOTTLE BOTH EYES SCH (21:34)
[2021-11-21] MEDS: Insulin DETEMIR 100 UNIT/ML X5UNITS SUBQ SCH (22:03)
[2021-11-22] MEDS: Ipratropium 1 PUFF INHALER IH SCH ×7 (00:14→23:34)
[2021-11-22] MEDS: Piperacillin/Tazobactam 3.375 GM in 0.9 % Sodium Chloride Mini Bag 100 ML IVPB SCH ×3 (01:39→16:48)
[2021-11-22] MEDS: *HR* Enoxaparin 40 MG/0.4 ML SYRINGE SQ SCH (05:24)
[2021-11-22] MEDS: Aspirin Enteric Coated 81 MG Tablet PO SCH (08:37)
[2021-11-22] MEDS: Divalproex (12 HR) 500 MG TABLET PO SCH ×3 (08:38→19:56)
[2021-11-22] MEDS: Metoprolol XL (24 HR) Succ 25 MG TAB.ER.24H PO SCH (08:38)
[2021-11-22] MEDS: Dorzolamide OPTH 10 ML BOTTLE BOTH EYES SCH ×3 (08:38→19:57)
[2021-11-22] MEDS: Ammonium Lactate 30 APPL/225 GM BOTTLE TP SCH ×2 (08:38→19:55)
[2021-11-22] MEDS: polyethylene glycoL 3350 17 GM POWD.PACK PO SCH (08:38)
[2021-11-22] MEDS: Patient Taking Own Medication 1 EACH PO SCH ×2 (08:39→19:56)
[2021-11-22] MEDS: Insulin LISPRO 300 UNITS/3 ML VIAL SUBQ SCH ×6 (08:39→21:11)
[2021-11-22 11:07] LABS: BUN/Creatinine Ratio 43 (6-26); Blood Urea Nitrogen 45 mg/dL (8-23); Calcium 8.8 mg/dL (8.6-10.3); Carbon Dioxide 26 mEq/L (23-29); Chloride 96 mEq/L (98-107); Glucose 368 mg/dL (70-105); Osmolality,Calculated 297 (280-300); Sodium 130 mEq/L (136-145); eGFR For African Americans > 60 (> 60); eGFR For Non-African Americans > 60 (> 60)
[2021-11-22 11:50] LABS: Hemoglobin 13.3 g/dL (12.9-16.9); Mean Corpuscular Volume 96.2 fL (83.0-100.0); Mean Platelet Volume 10.5 fL (9.4-12.4); Platelet Count 357 K/mcL (140-400); Red Blood Count 4.16 M/mcL (4.19-5.50); Red Cell Distribution Width 13.3 % (11.5-14.5); White Blood Count 17.1 K/mcL (4.3-11.1)
[2021-11-22 11:54] LABS: Mean Corpuscular HGB Conc 33.3 g/dL (31.6-35.5)
[2021-11-22] MEDS: Insulin DETEMIR 100 UNIT/ML X5UNITS SUBQ SCH (16:49)
[2021-11-22] MEDS: Famotidine 20 MG TABLET PO SCH (19:56)
[2021-11-22] MEDS: Latanoprost 2.5 ML BOTTLE BOTH EYES SCH (19:57)
[2021-11-22] MEDS: cloZAPine 100 MG TABLET PO SCH (21:11)
[2021-11-23] MEDS: Piperacillin/Tazobactam 3.375 GM in 0.9 % Sodium Chloride Mini Bag 100 ML IVPB SCH ×3 (00:28→16:30)
[2021-11-23 02:27] LABS: BUN/Creatinine Ratio 45 (6-26); Blood Urea Nitrogen 46 mg/dL (8-23); C-Reactive Protein 43 mg/L (Less than 10); Calcium 8.8 mg/dL (8.6-10.3); Carbon Dioxide 24 mEq/L (23-29); Chloride 97 mEq/L (98-107); Glucose 136 mg/dL (70-105); Lactate Dehydrogenase 557 Units/L (140-271); Osmolality,Calculated 288 (280-300); Sodium 132 mEq/L (136-145); eGFR For African Americans > 60 (> 60); eGFR For Non-African Americans > 60 (> 60)
[2021-11-23] MEDS: Ipratropium 1 PUFF INHALER IH SCH ×5 (03:15→19:35)
[2021-11-23 03:24] LABS: Hematocrit 40.1 % (37.5-50.1); Hemoglobin 13.1 g/dL (12.9-16.9); Mean Corpuscular HGB Conc 32.7 g/dL (31.6-35.5); Mean Corpuscular Hemoglobin 31.3 pg (28.0-33.3); Mean Corpuscular Volume 95.9 fL (83.0-100.0); Mean Platelet Volume 10.3 fL (9.4-12.4); Platelet Count 405 K/mcL (140-400); Red Blood Count 4.18 M/mcL (4.19-5.50); Red Cell Distribution Width 13.5 % (11.5-14.5); White Blood Count 19.7 K/mcL (4.3-11.1)
[2021-11-23] MEDS: *HR* Enoxaparin 40 MG/0.4 ML SYRINGE SQ SCH (05:29)
[2021-11-23] MEDS: Insulin LISPRO 300 UNITS/3 ML VIAL SUBQ SCH ×7 (08:40→21:05)
[2021-11-23] MEDS: Aspirin Enteric Coated 81 MG Tablet PO SCH (08:46)
[2021-11-23] MEDS: Divalproex (12 HR) 500 MG TABLET PO SCH ×3 (08:47→21:05)
[2021-11-23] MEDS: Metoprolol XL (24 HR) Succ 25 MG TAB.ER.24H PO SCH (08:47)
[2021-11-23] MEDS: Dorzolamide OPTH 10 ML BOTTLE BOTH EYES SCH ×3 (08:47→21:06)
[2021-11-23] MEDS: Patient Taking Own Medication 1 EACH PO SCH ×2 (08:47→21:05)
[2021-11-23] MEDS: polyethylene glycoL 3350 17 GM POWD.PACK PO SCH (08:48)
[2021-11-23] MEDS: Ammonium Lactate 30 APPL/225 GM BOTTLE TP SCH ×2 (10:58→21:06)
[2021-11-23] MEDS: Insulin DETEMIR 100 UNIT/ML X5UNITS SUBQ SCH (18:15)
[2021-11-23] MEDS: Benzonatate 100 MG CAPSULE PO PRN (21:05)
[2021-11-23] MEDS: Famotidine 20 MG TABLET PO SCH (21:05)
[2021-11-23] MEDS: Latanoprost 2.5 ML BOTTLE BOTH EYES SCH (21:06)
[2021-11-23] MEDS: cloZAPine 100 MG TABLET PO SCH (23:45)
[2021-11-24] MEDS: Ipratropium 1 PUFF INHALER IH SCH ×6 (00:41→20:50)
[2021-11-24] MEDS: Piperacillin/Tazobactam 3.375 GM in 0.9 % Sodium Chloride Mini Bag 100 ML IVPB SCH ×3 (01:34→16:20)
[2021-11-24] MEDS: *HR* Enoxaparin 40 MG/0.4 ML SYRINGE SQ SCH (05:35)
[2021-11-24 06:49] LABS: BUN/Creatinine Ratio 40 (6-26); Blood Urea Nitrogen 38 mg/dL (8-23); Calcium 8.7 mg/dL (8.6-10.3); Carbon Dioxide 24 mEq/L (23-29); Chloride 104 mEq/L (98-107); Ferritin 564 ng/mL (20-250); Glucose 69 mg/dL (70-105); Lactate Dehydrogenase 616 Units/L (140-271); Osmolality,Calculated 279 (280-300); Potassium 5.9 mEq/L (3.5-5.1); Sodium 131 mEq/L (136-145); eGFR For African Americans > 60 (> 60); eGFR For Non-African Americans > 60 (> 60)
[2021-11-24] MEDS: Insulin LISPRO 300 UNITS/3 ML VIAL SUBQ SCH ×6 (07:45→20:53)
[2021-11-24] MEDS: Divalproex (12 HR) 500 MG TABLET PO SCH ×3 (07:49→20:53)
[2021-11-24] MEDS: polyethylene glycoL 3350 17 GM POWD.PACK PO SCH (07:49)
[2021-11-24] MEDS: Metoprolol XL (24 HR) Succ 25 MG TAB.ER.24H PO SCH (07:49)
[2021-11-24] MEDS: Dorzolamide OPTH 10 ML BOTTLE BOTH EYES SCH ×3 (07:52→20:53)
[2021-11-24] MEDS: Patient Taking Own Medication 1 EACH PO SCH ×2 (07:52→20:53)
[2021-11-24] MEDS: Aspirin Enteric Coated 81 MG Tablet PO SCH (07:52)
[2021-11-24] MEDS: Ammonium Lactate 30 APPL/225 GM BOTTLE TP SCH ×2 (07:53→21:15)
[2021-11-24 07:56] LABS: Hematocrit 40.4 % (37.5-50.1); Hemoglobin 13.2 g/dL (12.9-16.9); Mean Corpuscular HGB Conc 32.7 g/dL (31.6-35.5); Mean Corpuscular Hemoglobin 31.7 pg (28.0-33.3); Mean Corpuscular Volume 96.9 fL (83.0-100.0); Mean Platelet Volume 10.9 fL (9.4-12.4); Nucleated Red Blood Cells 0.6 /100 WBC (0); Platelet Count 410 K/mcL (140-400); Red Blood Count 4.17 M/mcL (4.19-5.50); Red Cell Distribution Width 13.6 % (11.5-14.5); White Blood Count 21.4 K/mcL (4.3-11.1)
[2021-11-24 08:43] LABS: Lymphocytes # 5.6 K/mcL (0.6-4.6); Monocytes # 1.3 K/mcL (0.0-1.3); Neutrophils # 14.6 K/mcL (1.6-8.9)
[2021-11-24 08:46] LABS: Reactive Lymphocytes Present (Not Present)
[2021-11-24] MEDS ORDERED: Acetaminophen 325 MG TABLET PO PRN (13:41)
[2021-11-24] MEDS: Insulin DETEMIR 100 UNIT/ML X5UNITS SUBQ SCH (17:56)
[2021-11-24] MEDS: cloZAPine 100 MG TABLET PO SCH (20:52)
[2021-11-24] MEDS: Latanoprost 2.5 ML BOTTLE BOTH EYES SCH (20:53)
[2021-11-24] MEDS: Famotidine 20 MG TABLET PO SCH (20:53)
[2021-11-25] MEDS: Piperacillin/Tazobactam 3.375 GM in 0.9 % Sodium Chloride Mini Bag 100 ML IVPB SCH ×3 (00:03→16:33)
[2021-11-25] MEDS: Ipratropium 1 PUFF INHALER IH SCH ×7 (00:21→23:20)
[2021-11-25] MEDS: *HR* Enoxaparin 40 MG/0.4 ML SYRINGE SQ SCH (06:11)
[2021-11-25] MEDS: Metoprolol XL (24 HR) Succ 25 MG TAB.ER.24H PO SCH (07:52)
[2021-11-25] MEDS: Aspirin Enteric Coated 81 MG Tablet PO SCH (07:52)
[2021-11-25] MEDS: Divalproex (12 HR) 500 MG TABLET PO SCH ×3 (07:52→19:51)
[2021-11-25] MEDS: polyethylene glycoL 3350 17 GM POWD.PACK PO SCH (07:53)
[2021-11-25] MEDS: Patient Taking Own Medication 1 EACH PO SCH ×2 (07:53→19:54)
[2021-11-25] MEDS: Insulin LISPRO 300 UNITS/3 ML VIAL SUBQ SCH ×4 (07:53→19:53)
[2021-11-25] MEDS: Ammonium Lactate 30 APPL/225 GM BOTTLE TP SCH ×2 (07:54→19:50)
[2021-11-25] MEDS: Dorzolamide OPTH 10 ML BOTTLE BOTH EYES SCH ×3 (09:19→19:54)
[2021-11-25 10:29] LABS: BUN/Creatinine Ratio 29 (6-26); Blood Urea Nitrogen 30 mg/dL (8-23); C-Reactive Protein 77 mg/L (Less than 10); Calcium 8.4 mg/dL (8.6-10.3); Carbon Dioxide 27 mEq/L (23-29); Chloride 97 mEq/L (98-107); Glucose 260 mg/dL (70-105); Osmolality,Calculated 287 (280-300); Potassium 4.9 mEq/L (3.5-5.1); Sodium 131 mEq/L (136-145); eGFR For African Americans > 60 (> 60); eGFR For Non-African Americans > 60 (> 60)
[2021-11-25 10:47] LABS: Ferritin 419 ng/mL (20-250)
[2021-11-25 11:27] LABS: Hematocrit 39.4 % (37.5-50.1); Hemoglobin 12.8 g/dL (12.9-16.9); Mean Corpuscular Volume 98.5 fL (83.0-100.0); Mean Platelet Volume 10.3 fL (9.4-12.4); Monocytes # 0.9 K/mcL (0.0-1.3); Nucleated Red Blood Cells 0.3 /100 WBC (0); Platelet Count 497 K/mcL (140-400); Red Cell Distribution Width 13.5 % (11.5-14.5); White Blood Count 22.4 K/mcL (4.3-11.1)
[2021-11-25 11:28] LABS: Mean Corpuscular HGB Conc 32.5 g/dL (31.6-35.5)
[2021-11-25 16:16] LABS: Lymphocytes # 0.7 K/mcL (0.6-4.6); Platelet Estimate Increased (Normal)
[2021-11-25] MEDS ORDERED: Haloperidol Lactate 5 MG/ML VIAL IVP ONE (17:11)
[2021-11-25] MEDS ORDERED: Isovue-370 500 ML BOTTLE IVP ONE (17:12)
[2021-11-25] MEDS ORDERED: diazePAM 10 MG/2 ML SYRINGE IVP ONE (19:29)
[2021-11-25] MEDS: Latanoprost 2.5 ML BOTTLE BOTH EYES SCH (19:54)
[2021-11-25] MEDS: Famotidine 20 MG TABLET PO SCH (19:54)
[2021-11-25] MEDS: traZODone 50 MG TABLET PO SCH (19:54)
[2021-11-25] MEDS: cloZAPine 100 MG TABLET PO SCH (19:57)
[2021-11-26] MEDS: Piperacillin/Tazobactam 3.375 GM in 0.9 % Sodium Chloride Mini Bag 100 ML IVPB SCH ×3 (00:29→15:08)
[2021-11-26 02:48] LABS: Hematocrit 32.2 % (37.5-50.1); Hemoglobin 11.5 g/dL (12.9-16.9); Mean Corpuscular HGB Conc 35.7 g/dL (31.6-35.5); Mean Corpuscular Hemoglobin 36.3 pg (28.0-33.3); Mean Corpuscular Volume 101.6 fL (83.0-100.0); Mean Platelet Volume 9.6 fL (9.4-12.4); Monocytes # 0.7 K/mcL (0.0-1.3); Nucleated Red Blood Cells 0.3 /100 WBC (0); Platelet Count 455 K/mcL (140-400); Red Blood Count 3.17 M/mcL (4.19-5.50); Red Cell Distribution Width 14.4 % (11.5-14.5); White Blood Count 17.5 K/mcL (4.3-11.1)
[2021-11-26 03:06] LABS: Alanine Aminotransferase 18 Units/L (7-52); Albumin 2.6 g/dL (3.5-5.7); Albumin/Globulin Ratio 0.9 (1.1-2.2); Alkaline Phosphatase 49 Units/L (34-104); Aspartate Amino Transferase 34 Units/L (13-39); BUN/Creatinine Ratio 36 (6-26); Bilirubin,Total 0.4 mg/dL (0.3-1.0); Blood Urea Nitrogen 30 mg/dL (8-23); Calcium 8.5 mg/dL (8.6-10.3); Carbon Dioxide 26 mEq/L (23-29); Chloride 103 mEq/L (98-107); Glucose 104 mg/dL (70-105); Osmolality,Calculated 276 (280-300); Potassium 4.8 mEq/L (3.5-5.1); Sodium 130 mEq/L (136-145); Total Protein 5.6 g/dL (6.4-8.9); eGFR For African Americans > 60 (> 60); eGFR For Non-African Americans > 60 (> 60)
[2021-11-26 03:10] LABS: Lymphocytes # 2.5 K/mcL (0.6-4.6); Neutrophils # 13.7 K/mcL (1.6-8.9); Platelet Estimate Increased (Normal)
[2021-11-26] MEDS: Ipratropium 1 PUFF INHALER IH SCH ×6 (03:31→23:06)
[2021-11-26] MEDS: *HR* Enoxaparin 40 MG/0.4 ML SYRINGE SQ SCH (05:24)
[2021-11-26] MEDS: Insulin LISPRO 300 UNITS/3 ML VIAL SUBQ SCH ×4 (08:37→20:56)
[2021-11-26] MEDS: Aspirin Enteric Coated 81 MG Tablet PO SCH (08:47)
[2021-11-26] MEDS: Dexamethasone Sodium Phos/PF 10 MG/ML VIAL IVP SCH (08:47)
[2021-11-26] MEDS: Divalproex (12 HR) 500 MG TABLET PO SCH ×3 (08:48→21:10)
[2021-11-26] MEDS: polyethylene glycoL 3350 17 GM POWD.PACK PO SCH (08:48)
[2021-11-26] MEDS: Metoprolol XL (24 HR) Succ 25 MG TAB.ER.24H PO SCH (08:48)
[2021-11-26] MEDS: Ammonium Lactate 30 APPL/225 GM BOTTLE TP SCH ×2 (08:49→21:12)
[2021-11-26] MEDS: Patient Taking Own Medication 1 EACH PO SCH ×2 (08:50→20:56)
[2021-11-26] MEDS: Dorzolamide OPTH 10 ML BOTTLE BOTH EYES SCH ×3 (08:50→21:11)
[2021-11-26] MEDS: traZODone 50 MG TABLET PO SCH (21:10)
[2021-11-26] MEDS: Famotidine 20 MG TABLET PO SCH (21:11)
[2021-11-26] MEDS: cloZAPine 100 MG TABLET PO SCH (21:11)
[2021-11-26] MEDS: Latanoprost 2.5 ML BOTTLE BOTH EYES SCH (21:12)
[2021-11-27] MEDS: Piperacillin/Tazobactam 3.375 GM in 0.9 % Sodium Chloride Mini Bag 100 ML IVPB SCH ×4 (00:33→23:38)
[2021-11-27] MEDS: Ipratropium 1 PUFF INHALER IH SCH ×5 (03:14→20:18)
[2021-11-27] MEDS: *HR* Enoxaparin 40 MG/0.4 ML SYRINGE SQ SCH (05:40)
[2021-11-27] MEDS: Ammonium Lactate 30 APPL/225 GM BOTTLE TP SCH ×2 (07:55→19:25)
[2021-11-27] MEDS: Insulin LISPRO 300 UNITS/3 ML VIAL SUBQ SCH ×4 (07:55→19:29)
[2021-11-27] MEDS: Patient Taking Own Medication 1 EACH PO SCH ×2 (07:56→19:28)
[2021-11-27] MEDS: Aspirin Enteric Coated 81 MG Tablet PO SCH (07:59)
[2021-11-27] MEDS: Divalproex (12 HR) 500 MG TABLET PO SCH ×3 (07:59→19:19)
[2021-11-27] MEDS: polyethylene glycoL 3350 17 GM POWD.PACK PO SCH (07:59)
[2021-11-27] MEDS: Metoprolol XL (24 HR) Succ 25 MG TAB.ER.24H PO SCH (08:00)
[2021-11-27] MEDS: Dorzolamide OPTH 10 ML BOTTLE BOTH EYES SCH ×3 (08:00→19:24)
[2021-11-27] MEDS: Dexamethasone Sodium Phos/PF 10 MG/ML VIAL IVP SCH (08:00)
[2021-11-27] MEDS: Benzonatate 100 MG CAPSULE PO PRN (09:30)
[2021-11-27] MEDS: Ondansetron 4 MG/2 ML VIAL IVP PRN (09:30)
[2021-11-27 11:49] LABS: Mean Platelet Volume 9.8 fL (9.4-12.4)
[2021-11-27 11:51] LABS: Hematocrit 35.7 % (37.5-50.1); Hemoglobin 12.4 g/dL (12.9-16.9); Immature Platelets 2.8 % (1.1-6.1); Mean Corpuscular HGB Conc 34.7 g/dL (31.6-35.5); Mean Corpuscular Hemoglobin 34.3 pg (28.0-33.3); Mean Corpuscular Volume 98.6 fL (83.0-100.0); Nucleated Red Blood Cells 0.1 /100 WBC (0); Platelet Count 414 K/mcL (140-400); Red Blood Count 3.62 M/mcL (4.19-5.50); Red Cell Distribution Width 14.4 % (11.5-14.5); White Blood Count 20.5 K/mcL (4.3-11.1)
[2021-11-27 12:23] LABS: Eosinophils # 0.2 K/mcL (0.0-0.6); Lymphocytes # 0.8 K/mcL (0.6-4.6); Monocytes # 1.2 K/mcL (0.0-1.3); Neutrophils # 17.4 K/mcL (1.6-8.9)
[2021-11-27 12:31] LABS: Platelet Estimate Normal (Normal)
[2021-11-27 18:04] LABS: Alanine Aminotransferase 29 Units/L (7-52); Albumin 2.9 g/dL (3.5-5.7); Albumin/Globulin Ratio 0.9 (1.1-2.2); Alkaline Phosphatase 70 Units/L (34-104); Aspartate Amino Transferase 37 Units/L (13-39); BUN/Creatinine Ratio 30 (6-26); Bilirubin,Total 0.4 mg/dL (0.3-1.0); Blood Urea Nitrogen 31 mg/dL (8-23); Calcium 8.9 mg/dL (8.6-10.3); Carbon Dioxide 24 mEq/L (23-29); Chloride 100 mEq/L (98-107); Globulin 3.4 g/dL (2.4-3.5); Glucose 257 mg/dL (70-105); Osmolality,Calculated 285 (280-300); Potassium 5.6 mEq/L (3.5-5.1); Sodium 130 mEq/L (136-145); Total Protein 6.3 g/dL (6.4-8.9); eGFR For African Americans > 60 (> 60); eGFR For Non-African Americans > 60 (> 60)
[2021-11-27] MEDS: traZODone 50 MG TABLET PO SCH (19:19)
[2021-11-27] MEDS: cloZAPine 100 MG TABLET PO SCH (19:21)
[2021-11-27] MEDS: Famotidine 20 MG TABLET PO SCH (19:23)
[2021-11-27] MEDS: Latanoprost 2.5 ML BOTTLE BOTH EYES SCH (19:24)
[2021-11-27] MEDS: GuaiFENesin/Dextromethorphan TABLET PO SCH (22:06)
[2021-11-28] MEDS: Ipratropium 1 PUFF INHALER IH SCH ×4 (00:06→10:39)
[2021-11-28 02:40] LABS: Hematocrit 33.1 % (37.5-50.1); Hemoglobin 10.9 g/dL (12.9-16.9); Mean Corpuscular HGB Conc 32.9 g/dL (31.6-35.5); Mean Corpuscular Hemoglobin 32.6 pg (28.0-33.3); Mean Corpuscular Volume 99.1 fL (83.0-100.0); Mean Platelet Volume 9.8 fL (9.4-12.4); Platelet Count 481 K/mcL (140-400); Red Blood Count 3.34 M/mcL (4.19-5.50); Red Cell Distribution Width 13.3 % (11.5-14.5)
[2021-11-28 02:55] LABS: BUN/Creatinine Ratio 32 (6-26); Blood Urea Nitrogen 29 mg/dL (8-23); Carbon Dioxide 27 mEq/L (23-29); Chloride 102 mEq/L (98-107); Glucose 113 mg/dL (70-105); Osmolality,Calculated 285 (280-300); Potassium 5.1 mEq/L (3.5-5.1); Sodium 134 mEq/L (136-145); eGFR For African Americans > 60 (> 60); eGFR For Non-African Americans > 60 (> 60)
[2021-11-28] MEDS: *HR* Enoxaparin 40 MG/0.4 ML SYRINGE SQ SCH (05:35)
[2021-11-28] MEDS: Metoprolol XL (24 HR) Succ 25 MG TAB.ER.24H PO SCH (07:53)
[2021-11-28] MEDS: Divalproex (12 HR) 500 MG TABLET PO SCH (07:53)
[2021-11-28] MEDS: polyethylene glycoL 3350 17 GM POWD.PACK PO SCH (07:53)
[2021-11-28] MEDS: Aspirin Enteric Coated 81 MG Tablet PO SCH (07:53)
[2021-11-28] MEDS: Piperacillin/Tazobactam 3.375 GM in 0.9 % Sodium Chloride Mini Bag 100 ML IVPB SCH (07:54)
[2021-11-28] MEDS: Ammonium Lactate 30 APPL/225 GM BOTTLE TP SCH (07:55)
[2021-11-28] MEDS: Patient Taking Own Medication 1 EACH PO SCH (07:55)
[2021-11-28] MEDS: Dorzolamide OPTH 10 ML BOTTLE BOTH EYES SCH (07:55)
[2021-11-28] MEDS: Ondansetron 4 MG/2 ML VIAL IVP PRN (07:58)
[2021-11-28 07:59] VITALS: BP 166/87; PULSE 108; TEMP 98.5
[2021-11-28] MEDS: Insulin LISPRO 300 UNITS/3 ML VIAL SUBQ SCH ×2 (08:00→11:52)
[2021-11-28] MEDS: GuaiFENesin/Dextromethorphan TABLET PO SCH (08:01)
[2021-11-28 08:56] VITALS: O2SAT 94
[2021-11-28] MEDS ORDERED: Dexamethasone Sodium Phos/PF 10 MG/ML VIAL IVP SCH (09:00)
== END 2021-11-28 13:06 | DRG 177 ==
LOC: 3BNU 09:12 → EMEROOARM 09:12 → 2ANU 12:45 → SUATTDRO 13:00 → 2ANU 14:06
PROVIDERS: ADMIT Family Medicine; ATTEND Internal Medicine